=== PATIENT | female | born 1970 | race Caucasian/White ===

== ENCOUNTER → 2016-04-03 | Outpatient (CLI) | payer MEDICARE ==
[2016-04-03 12:24] LABS: ABSOLUTE BASOPHILS # (AUTO) 0.1 10^3/uL (0.0-0.2); ABSOLUTE EOSINOPHILS # (AUTO) 0.3 10^3/uL (0.0-0.6); ABSOLUTE LYMPHOCYTES (AUTO) 3.6 10^3/uL (0.5-4.7); ABSOLUTE MONOCYTES (AUTO) 0.9 10^3/uL (0.1-1.4); ABSOLUTE NEUT (AUTO) 8.7 10^3/uL (1.7-8.2); BASOPHILS % (AUTO) 0.5 % (0-2); EOSINOPHILS % (AUTO) 2.4 % (0-6); HEMATOCRIT 40.1 % (36.0-47.0); HGB HCT DIFFERENCE -1.1; LYMPHOCYTES % (AUTO) 26.5 % (13-45); MEAN CORPUSCULAR HGB CONC 32.3 g/dL (32.0-36.0); MEAN CORPUSCULAR VOLUME 74 fl (80-97); MONOCYTES % (AUTO) 6.8 % (3-13); RED CELL DISTRIBUTION WIDTH 17.2 % (11.5-14.0); SEGMENTED NEUTROPHILS % (AUTO) 63.8 % (42-78); WHITE BLOOD COUNT 13.7 10^3/uL (4.0-10.5)
[2016-04-03 13:07] LABS: ALANINE AMINOTRANSFERASE 33 U/L (9-52); ALBUMIN 3.7 g/dL (3.5-5.0); ALKALINE PHOSPHATASE 122 U/L (38-126); ANION GAP 14 (5-19); ASPARTATE AMINO TRANSFERASE 17 U/L (14-36); BILIRUBIN,TOTAL 0.2 mg/dL (0.2-1.3); BLOOD UREA NITROGEN 13 mg/dL (7-20); CALCIUM 9.4 mg/dL (8.4-10.2); CARBON DIOXIDE 25 mmol/L (22-30); CHLORIDE 99 mmol/L (98-107); CREATININE RESULT 0.62 mg/dL (0.52-1.25); GLUCOSE 152 mg/dL (75-110); POTASSIUM 4.6 mmol/L (3.6-5.0); SODIUM 137.7 mmol/L (137-145); TOTAL PROTEIN 6.5 g/dL (6.3-8.2)
== END ==
LOC: OD 11:34
PROVIDERS: ATTEND Nurse Practitioner Adult Health
DX: J44.1 Chronic obstructive pulmonary disease with (acute) exacerbation (principal); R05 Cough
CPT/HCPCS: 36415; 71020; 80053; 85025; 87070; 87205

== ENCOUNTER 2016-04-18 22:04 | Emergency (ER) | payer MEDICARE ==
[2016-04-18] MEDS ORDERED: MORPHINE SULFATE 10 MG/ML INJ IV ONE (22:22)
[2016-04-18] MEDS ORDERED: ONDANSETRON HCL INJ/PF 4 MG/2 ML SDV IV ONE (22:22)
--- NOTE | 2016-04-18 22:26 | ER Document Report ---
ED GI/ - General Stated Complaint: DIFFICULTY BREATHING Time seen by provider: 22:23 Mode of Arrival: Ambulatory Information source: Patient TRAVEL OUTSIDE OF THE [place] IN LAST 30 DAYS: No - HPI Patient complains to provider of: Abdominal pain, Vomiting Onset: Other - 2-3 days Timing/Duration: Gradual, Persistent Quality of pain: Achy, Cramping, Fullness, Pressure Severity at maximum: Moderate Severity in ED: Moderate Pain Level: 4 Location: Right flank Associated symptoms: Nausea, Shortness of breath, Sweaty, Vomiting Exacerbated by: Denies Relieved by: Denies Similar symptoms previously: No Recently seen / treated by doctor: Yes Notes: 04/18/16 22:24 Patient is a 46-year-old female with a history of pulmonary fibrosis, osteoporosis, history of herniated disks, who presents to the emergency room complaining of nausea and vomiting with dizziness and body aches, muscle cramps , right flank pain that's been going on for the past 2-3 days, she reports decreased by mouth intake and decreased urination throughout the day today, she does not feel the urge to urinate, she states anytime she stands up she gets diaphoretic, and feels as though she is going to pass out, the room is spinning at the time, patient denies any sick contacts, no recent traveling - Related Data Allergies/Adverse Reactions: piperacillin sodium [From Zosyn] Allergy (Unknown, Verified 04/12/15 14:39) Unknown reaction tazobactam sodium [From Zosyn] Allergy (Unknown, Verified 04/12/15 14:39) Unknown reaction Past Medical History - General Information source: Patient - Social History Smoking Status: Former Smoker - Quit 4 years ago Family History: Arthritis, COPD - Father, Other - Pulmonary hypertension in mother, Father with pulmonary fibrosis - Past Medical History Cardiac Medical History: Reports: Hx Pulmonary Embolism Pulmonary Medical History: Reports: Hx Asthma, Hx Bronchitis, Hx COPD, Hx Respiratory Failure Denies: Hx Pneumonia, Hx Sleep Apnea, Hx Tuberculosis Malignancy Medical History: Denies: Hx Lung Cancer Psychiatric Medical History: Denies: Hx Depression Past Surgical History: Reports: Hx Appendectomy - 1989, Hx Breast Surgery - Tumors removed on L breast, Hx Hysterectomy, Hx Tonsillectomy - 1974. Denies: Hx Pacemaker - Immunizations Hx Diphtheria, Pertussis, Tetanus Vaccination: Yes Review of Systems - Review of Systems Constitutional: Chills, Diaphoresis, Malaise, Weakness EENT: No symptoms reported Cardiovascular: No symptoms reported Respiratory: Short of breath Gastrointestinal: Abdominal pain, Nausea, Vomiting, Poor fluid intake Genitourinary: Other - Decreased urine output Female Genitourinary: No symptoms reported Musculoskeletal: See HPI Skin: No symptoms reported Hematologic/Lymphatic: No symptoms reported Neurological/Psychological: No symptoms reported -: Yes All other systems reviewed and negative Physical Exam - Vital signs Vitals: Temp Pulse Resp BP Pulse Ox 98.9 F 123 H 26 H 132/109 H 98 04/18/16 22:05 04/18/16 22:05 04/18/16 22:05 04/18/16 22:05 04/18/16 22:05 Interpretation: Tachycardic - General General appearance: Alert In distress: Mild - HEENT Head: Normocephalic, Atraumatic Eyes: Normal Pupils: PERRL - Respiratory Respiratory status: No respiratory distress Chest status: Nontender Breath sounds: Normal Chest palpation: Normal - Cardiovascular Rhythm: Regular, Tachycardia Heart sounds: Normal auscultation Murmur: No - Abdominal Inspection: Normal Distension: No distension Bowel sounds: Normal Tenderness: Nontender Organomegaly: No organomegaly - Back Back: CVA tenderness - Right side - Extremities General upper extremity: Normal inspection, Nontender, Normal color, Normal ROM , Normal temperature General lower extremity: Normal inspection, Nontender, Normal color, Normal ROM , Normal temperature, Normal weight bearing. No: Dilma's sign - Neurological Neuro grossly intact: Yes Cognition: Normal Orientation: AAOx4 Rigby Coma Scale Eye Opening: Spontaneous Rigby Coma Scale Verbal: Oriented Rigby Coma Scale Motor: Obeys Commands Rigby Coma Scale Total: 15 Speech: Normal Motor strength normal: LUE, RUE, LLE, RLE Sensory: Normal - Psychological Associated symptoms: Normal affect, Normal mood - Skin Skin Temperature: Warm Skin Moisture: Diaphoretic Skin Color: Normal Course - Re-evaluation Re-evalutation: 04/19/16 01:29 Notified by nursing staff that patient apparently had a fall, states she went to get up out of the bed, felt dizzy and lightheaded and fell backwards onto her buttocks, she has a very mild abrasion to the left anterior lower leg, and some pain in the buttock region, denies head injury or loss of consciousness, requested additional pain and nausea meds 04/19/16 05:36 Patient appears to be doing much better, she still reports not feeling quite well, however lab and imaging findings were discussed with patient at bedside which are relatively unremarkable, she states that she is convinced there is something wrong with her kidneys, I attempted to reassure patient that her CAT scan showed normal kidneys, her kidney function is completely normal and her urinalysis did not show any signs of infection or otherwise concerning kidney issues, she was provided with additional IV fluids, her vital signs improved significantly, she was able to stand up without any further dizziness, and therefore is discharged home with instructions to follow-up with her primary care provider and her pain management physician or return if symptoms worsen, patient acknowledges understanding and agreement with this plan - Vital Signs Vital signs: Temp Pulse Resp BP Pulse Ox 98.2 F 99 27 H 136/88 H 98 04/19/16 05:28 04/19/16 04:00 04/19/16 05:26 04/19/16 05:26 04/19/16 05:26 - Laboratory Result Diagrams: 04/18/16 23:08 04/18/16 23:08 Laboratory results interpreted by me: 04/18/16 04/18/16 04/18/16 23:08 23:08 23:21 WBC 19.0 H RBC 5.47 H MCV 75 L MCH 23.8 L MCHC 31.8 L RDW 17.3 H Absolute Neutrophils 14.5 H Potassium 5.1 H Alkaline Phosphatase 141 H Urine Ketones TRACE H - Diagnostic Test Radiology reviewed: Image reviewed, Reports reviewed - EKG Interpretation by Nm EKG shows normal: Sinus rhythm Rate: Tachycardia Discharge - Discharge Clinical Impression: Flank pain, Dysuria Nausea and vomiting Qualifiers: Vomiting type: unspecified Vomiting Intractability: non-intractable Qualified Code(s): R11.2 - Nausea with vomiting, unspecified Condition: Stable Disposition: HOME, SELF-CARE Instructions: Antinausea Medication ([facility]), Vomiting ([facility]), Reglan ([facility]), Intravenous (IV) Fluids ([facility]), Flank Pain ([facility]) Additional Instructions: Follow up with your primary care provider in one to 2 days. Return to the emergency room immediately if symptoms worsen or any additional concerns. Prescriptions: Metoclopramide HCl [Reglan 10 mg Tablet] 1 - 2 tab PO ASDIR PRN #25 tablet PRN Reason: Referrals: BRETT GILL MD [Primary Care Provider] - Follow up as needed
[2016-04-18] MEDS: NORMAL SALINE 1000 ML 1,000 ML IV PRN (23:16)
[2016-04-18 23:20] LABS: ABSOLUTE BASOPHILS # (AUTO) 0.2 10^3/uL (0.0-0.2); ABSOLUTE EOSINOPHILS # (AUTO) 0.1 10^3/uL (0.0-0.6); ABSOLUTE LYMPHOCYTES (AUTO) 3.1 10^3/uL (0.5-4.7); ABSOLUTE MONOCYTES (AUTO) 1.1 10^3/uL (0.1-1.4); ABSOLUTE NEUT (AUTO) 14.5 10^3/uL (1.7-8.2); BASOPHILS % (AUTO) 1.1 % (0-2); EOSINOPHILS % (AUTO) 0.5 % (0-6); LYMPHOCYTES % (AUTO) 16.4 % (13-45); MEAN CORPUSCULAR HEMOGLOBIN 23.8 pg (27.0-33.4); MEAN CORPUSCULAR HGB CONC 31.8 g/dL (32.0-36.0); MEAN CORPUSCULAR VOLUME 75 fl (80-97); RED BLOOD COUNT 5.47 10^6/uL (3.72-5.28); RED CELL DISTRIBUTION WIDTH 17.3 % (11.5-14.0)
[2016-04-18 23:46] LABS: ALANINE AMINOTRANSFERASE 47 U/L (9-52); ALBUMIN 4.3 g/dL (3.5-5.0); ALKALINE PHOSPHATASE 141 U/L (38-126); ANION GAP 12 (5-19); ASPARTATE AMINO TRANSFERASE 24 U/L (14-36); BILIRUBIN,TOTAL 0.5 mg/dL (0.2-1.3); BLOOD UREA NITROGEN 13 mg/dL (7-20); CALCIUM 9.9 mg/dL (8.4-10.2); CARBON DIOXIDE 28 mmol/L (22-30); CHLORIDE 100 mmol/L (98-107); CREATINE KINASE 75 U/L (30-135); CREATININE RESULT 0.56 mg/dL (0.52-1.25); GLUCOSE 104 mg/dL (75-110); LIPASE 62.9 U/L (23-300); POTASSIUM 5.1 mmol/L (3.6-5.0); SODIUM 140.4 mmol/L (137-145); TOTAL PROTEIN 7.1 g/dL (6.3-8.2)
[2016-04-18 23:55] LABS: CREATINE KINASE MB 2.22 ng/mL (<4.55)
[2016-04-19 00:02] LABS: APPEARANCE,URINE SLIGHTLY-CLOUDY; BILIRUBIN,URINE NEGATIVE (NEGATIVE); GLUCOSE, URINE NEGATIVE (NEGATIVE); KETONES,URINE TRACE mg/dL (NEGATIVE); LEUKOCYTE ESTERASE,URINE NEGATIVE (NEGATIVE); NITRITE,URINE NEGATIVE (NEGATIVE); PROTEIN,URINE NEGATIVE (NEGATIVE); URINE SPECIFIC GRAVITY 1.024; UROBILINOGEN,URINE NEGATIVE mg/dL (<2.0)
[2016-04-19] MEDS ORDERED: MORPHINE SULFATE 10 MG/ML INJ IV ONE ×3 (01:30→04:52)
[2016-04-19] MEDS ORDERED: ONDANSETRON HCL INJ/PF 4 MG/2 ML SDV IV ONE (01:30)
[2016-04-19] MEDS ORDERED: DIPHENHYDRAMINE HCL 50 MG/ML VIAL IV ONE (02:01)
[2016-04-19] MEDS ORDERED: DICYCLOMINE HCL 20 MG TABLET PO ONE (02:41)
[2016-04-19] MEDS ORDERED: NORMAL SALINE 1000 ML 1,000 ML IV PRN (03:45)
[2016-04-19] MEDS ORDERED: METOCLOPRAMIDE HCL INJ/PF 10 MG/2 ML SDV IV ONE (03:55)
[2016-04-19] MEDS: NORMAL SALINE 1000 ML 1,000 ML IV PRN (03:58)
[2016-04-19 05:28] VITALS: BP 136/88
--- NOTE | 2016-04-19 08:11 | EKG REPORT ---
SEVERITY:- BORDERLINE ECG - SINUS TACHYCARDIA NONSPECIFIC ST-T CHANGES : Confirmed by: Amilcar Cotto MD 19-Apr-2016 08:10:33
== END 2016-04-19 05:42 | disposition home or self-care (01) ==
LOC: ER 22:04
DX: R10.9 Unspecified abdominal pain (principal); R30.0 Dysuria; R11.2 Nausea with vomiting, unspecified; R06.02 Shortness of breath; J84.10 Pulmonary fibrosis, unspecified; M81.0 Age-related osteoporosis without current pathological fracture; R42 Dizziness and giddiness; R52 Pain, unspecified; R25.2 Cramp and spasm; Z87.891 Personal history of nicotine dependence
CPT/HCPCS: 93005; 96376; 99285; 96361; 96374; 96375; 36415; 87086; 82553; 82550; 83690; 85025; 80053; 81001; 83880; 76380; 93010; A9270; J1200; J2765; J2270 ×2; J2405 ×2; J7030 ×2; J3490

== ENCOUNTER 2016-09-28 20:20 | Inpatient (IN) | payer MEDICARE ==
[2016-09-28] MEDS ORDERED: IPRATROPIUM/ALBUTEROL 0.5-2.5 MG/3 ML AMPUL NEB ONE ×2 (20:33→20:34)
[2016-09-28] MEDS ORDERED: METHYLPREDNISOLONE INJ 125 MG/2 ML SDV ONE (20:34)
[2016-09-28] MEDS ORDERED: METHYLPREDNISOLONE INJ 125 MG/2 ML SDV IV ONE (20:34)
[2016-09-28] MEDS ORDERED: MAGNESIUM SULFATE/D5W 2 GM/200 ML RTUPB IV ONE (20:34)
[2016-09-28] MEDS ORDERED: MAGNESIUM SULFATE/D5W 100 ML IV PRN (20:34)
[2016-09-28] MEDS ORDERED: NORMAL SALINE 1000 ML 1,000 ML IV ONE (20:34)
[2016-09-28] MEDS ORDERED: CEFEPIME 2 GM/D5W RTU 50 ML IV ONE (20:41)
--- NOTE | 2016-09-28 20:57 | ER Document Report ---
ED Respiratory Problem - General Chief Complaint: Shortness Of Breath Stated Complaint: TROUBLE BREATHING Time Seen by Provider: 09/28/16 20:30 Notes: Patient is a 46-year-old female who comes emergency department for chief complaint of respiratory distress, patient had to be helped from her vehicle into a wheelchair to get into the room, patient states that she has had progressively worsening shortness of breath and productive cough for the past week, she started taking Levaquin and prednisone at home hoping this would be enough, today she significantly worsened prompting her to come to the emergency department. Past medical history of pulmonary fibrosis with history of pneumonias, she has been intubated once in the past, she sees pulmonology. She states she ran a fever >102 last night. She denies other medical history including Cardiac medical history, smoking, diabetes. TRAVEL OUTSIDE OF THE [place] IN LAST 30 DAYS: No - Related Data Allergies/Adverse Reactions: piperacillin sodium [From Zosyn] Allergy (Unknown, Verified 09/29/16 01:52) Unknown reaction tazobactam sodium [From Zosyn] Allergy (Unknown, Verified 04/12/15 14:39) Unknown reaction Home Medications: Current Home Medications Hydroxyzine HCl [Hydroxyzine HCl] 25 mg PO BID 09/28/16 [History] Promethazine HCl [Promethazine HCl] 25 mg PO Q4HP PRN 09/28/16 [History] Duloxetine HCl 1 cap PO DAILY 09/29/16 [History] Fentanyl [Fentanyl] 15 mcg TOP Q72H 09/29/16 [History] Fentanyl [Fentanyl] 25 mcg TOP Q72H 09/29/16 [History] Past Medical History - General Information source: Patient - Social History Smoking Status: Never Smoker Frequency of alcohol use: None Lives with: Family Family History: Arthritis, COPD - Father, Other - Pulmonary hypertension in mother, Father with pulmonary fibrosis - Past Medical History Cardiac Medical History: Reports: Hx Pulmonary Embolism Pulmonary Medical History: Reports: Hx Asthma, Hx Bronchitis, Hx COPD, Hx Respiratory Failure Denies: Hx Pneumonia, Hx Sleep Apnea, Hx Tuberculosis Malignancy Medical History: Denies: Hx Lung Cancer Psychiatric Medical History: Denies: Hx Depression Past Surgical History: Reports: Hx Appendectomy - 1989, Hx Breast Surgery - Tumors removed on L breast, Hx Hysterectomy, Hx Tonsillectomy - 1974. Denies: Hx Pacemaker - Immunizations Hx Diphtheria, Pertussis, Tetanus Vaccination: Yes Physical Exam - Vital signs Vitals: Resp Pulse Ox 32 H 93 09/28/16 20:28 09/28/16 20:28 Course - Re-evaluation Re-evalutation: Patient found to be in respiratory distress on my initial evaluation, she was immediately placed on BiPAP, given DuoNeb's, Solu-Medrol, magnesium, starting IV fluids, starting cefepime because patient started herself on PO Levaquin and she had a productive cough at bedside. Patient cannot say 2 words without her oxygen dropping into the upper 80s even while sitting. I placed IV access using ultrasound-guided IV. Oxygen improved from 90-91 up to about 97% on BiPAP, respiratory rate slowed, patient still tachycardic. Will continue to monitor closely. Workup pending. Patient continued to improve. Tachycardia slowly downtrending, still maintaining good oxygen level, patient much more relaxed with much more even breathing on reevaluation. Patient discussed with Dr. Byrnes. Leukocytosis at 19,000 with elevation of neutrophils, no bandemia. VBG is not showing any acidosis or CO2 retention. Chest x-ray showing bilateral pneumonia. Chemistry nonspecific with elevated liver enzymes, nontender abdomen on exam. CK is elevated, urine still pending, patient given IV fluids. Discussed with Dr. Torres, Internal Medicine, patient will be admitted to [facility]. - Vital Signs Vital signs: Temp Pulse Resp BP Pulse Ox 97.9 F 97 30 H 140/79 H 96 09/29/16 03:44 09/29/16 03:44 09/29/16 04:00 09/29/16 03:44 09/29/16 04:00 - Laboratory Result Diagrams: 09/28/16 20:49 09/28/16 22:05 Laboratory results interpreted by me: 09/28/16 09/28/16 09/28/16 20:49 22:05 22:05 WBC 19.3 H Hgb 10.7 L Hct 34.2 L MCV 73 L MCH 22.7 L MCHC 31.4 L RDW 18.5 H Absolute Neutrophils 15.0 H Sodium 132.6 L BUN 6 L Creatinine 0.50 L Glucose 200 H Calcium 8.2 L Magnesium AST 86 H ALT 177 H Alkaline Phosphatase 179 H Creatine Kinase 1422 H CK-MB (CK-2) 5.10 H Albumin 3.4 L 09/28/16 22:05 WBC Hgb Hct MCV MCH MCHC RDW Absolute Neutrophils Sodium BUN Creatinine Glucose Calcium Magnesium 2.4 H AST ALT Alkaline Phosphatase Creatine Kinase CK-MB (CK-2) Albumin Critical Care Note - Critical Care Note Total time excluding time spent on procedures (mins): 35 - respiratory distress , hypoxia, pneumonia Comments: Please allow 35 minutes of critical care time for evaluation and treatment of patient with respiratory distress, pneumonia, hypoxia. Treatment with BiPAP, DuoNeb's, Solu-Medrol, magnesium, antibiotics, IV fluids. Multiple re- evaluations. Consultation and admission to the hospital. Discharge - Discharge Clinical Impression: BOOP (bronchiolitis obliterans with organizing pneumonia), Respiratory distress Pneumonia Qualifiers: Pneumonia type: due to unspecified organism Laterality: bilateral Lung location : unspecified part of lung Qualified Code(s): J18.9 - Pneumonia, unspecified organism Condition: Stable Disposition: ADMITTED INPATIENT Admitting Provider: Hospitalist Unit Admitted: [facility]
[2016-09-28] MEDS ORDERED: ONDANSETRON HCL INJ/PF 4 MG/2 ML SDV IV ONE (21:02)
[2016-09-28 21:15] LABS: ABSOLUTE BASOPHILS # (AUTO) 0.2 10^3/uL (0.0-0.2); ABSOLUTE EOSINOPHILS # (AUTO) 0.1 10^3/uL (0.0-0.6); ABSOLUTE LYMPHOCYTES (AUTO) 2.8 10^3/uL (0.5-4.7); ABSOLUTE MONOCYTES (AUTO) 1.3 10^3/uL (0.1-1.4); EOSINOPHILS % (AUTO) 0.6 % (0-6); HEMATOCRIT 34.2 % (36.0-47.0); HEMOGLOBIN 10.7 g/dL (12.0-15.5); HGB HCT DIFFERENCE -2.1; LYMPHOCYTES % (AUTO) 14.4 % (13-45); MEAN CORPUSCULAR HEMOGLOBIN 22.7 pg (27.0-33.4); MEAN CORPUSCULAR HGB CONC 31.4 g/dL (32.0-36.0); MEAN CORPUSCULAR VOLUME 73 fl (80-97); MONOCYTES % (AUTO) 6.5 % (3-13); RED BLOOD COUNT 4.71 10^6/uL (3.72-5.28); RED CELL DISTRIBUTION WIDTH 18.5 % (11.5-14.0); SEGMENTED NEUTROPHILS % (AUTO) 77.5 % (42-78); WHITE BLOOD COUNT 19.3 10^3/uL (4.0-10.5)
[2016-09-28 21:18] LABS: VENOUS BLOOD PCO2 45.3 mmHg (35-63); VENOUS BLOOD PH 7.41 (7.30-7.42)
--- NOTE | 2016-09-28 21:49 | RADIOLOGY REPORT (SQ) ---
EXAM DESCRIPTION: CHEST SINGLE VIEW COMPLETED DATE/TIME: 09/28/2016 9:38 pm REASON FOR STUDY: difficulty breathing, productive cough COMPARISON: 04/03/2016 EXAM PARAMETERS: NUMBER OF VIEWS: One view. TECHNIQUE: Single frontal radiographic view of the chest acquired. RADIATION DOSE: NA LIMITATIONS: None. FINDINGS: LUNGS AND PLEURA: Diffuse left-sided parenchymal opacities. Right perihilar parenchymal o pacity. No pneumothorax. MEDIASTINUM AND HILAR STRUCTURES: No masses. Contour normal. HEART AND VASCULAR STRUCTURES: Heart normal in size. Normal vasculature. BONES: No acute findings. HARDWARE: None in the chest. OTHER: No other significant finding. IMPRESSION: Bilateral pneumonia. TECHNICAL DOCUMENTATION: JOB ID: [id number]
[2016-09-28 22:35] LABS: ALANINE AMINOTRANSFERASE 177 U/L (9-52); ALBUMIN 3.4 g/dL (3.5-5.0); ALKALINE PHOSPHATASE 179 U/L (38-126); ANION GAP 12 (5-19); ASPARTATE AMINO TRANSFERASE 86 U/L (14-36); BILIRUBIN,DIRECT 0.4 mg/dL (0.0-0.4); BILIRUBIN,TOTAL 0.5 mg/dL (0.2-1.3); BLOOD UREA NITROGEN 6 mg/dL (7-20); CALCIUM 8.2 mg/dL (8.4-10.2); CARBON DIOXIDE 23 mmol/L (22-30); CHLORIDE 98 mmol/L (98-107); CREATINE KINASE 1422 U/L (30-135); GLUCOSE 200 mg/dL (75-110); SODIUM 132.6 mmol/L (137-145); TOTAL PROTEIN 6.3 g/dL (6.3-8.2)
[2016-09-28 22:45] LABS: TROPONIN I < 0.012 ng/mL
[2016-09-28] MEDS ORDERED: MORPHINE SULFATE 10 MG/ML INJ IV ONE (22:56)
[2016-09-29] MEDS ORDERED: NORMAL SALINE 1000 ML 1,000 ML IV PRN (01:50)
[2016-09-29] MEDS ORDERED: ALBUTEROL SULFATE 0.083% NEB 2.5 MG/3 ML AMPUL NEB PRN (01:56)
[2016-09-29] MEDS ORDERED: GUAIFENESIN SYRP 200 MG/10 ML UDC PO PRN (01:56)
[2016-09-29 01:58] LABS: ADD ON TESTING BLD IN LAB ACKNOWLEDGE
[2016-09-29] MEDS ORDERED: VANCOMYCIN HCL 0 MG in DEXTROSE 5%-WATER 250 ML IV NR (02:00)
[2016-09-29] MEDS ORDERED: DEXTROSE 40% GEL 15 GM TUBE PO PRN ×2 (02:02)
[2016-09-29] MEDS ORDERED: ACETAMINOPHEN 325 MG TABLET PO PRN (02:02)
[2016-09-29] MEDS ORDERED: DEXTROSE 50%-WATER 25 GM/50 ML DISP.SYRIN IV PRN ×2 (02:02)
[2016-09-29] MEDS ORDERED: GLUCAGON,HUMAN RECOMB 1 MG INJ IM PRN (02:02)
[2016-09-29] MEDS ORDERED: INSULIN LISPRO 100 UNIT/ML 3 ML VIAL SUBCUT PRN (02:02)
[2016-09-29 02:10] LABS: MAGNESIUM 2.4 mg/dL (1.6-2.3)
--- NOTE | 2016-09-29 02:14 | PDOC H&P ---
History of Present Illness Admission Date/PCP: 09/28/16 23:35 [facility] Curseen Patient complains of: Difficulty breathing History of Present Illness: CHUCKIE OSPINA is a 46 year old obese female, with underlying pulmonary fibrosis, and history of BOOP who presents to the emergency room for evaluation of a one-week history of progressive difficulty breathing, with associated productive cough and fever greater than 102 over the previous 24 hours. Respiratory difficulty has particularly worsened over the last 24 hours. Positive nausea but no vomiting. No diarrhea or dysuria. Symptoms worse despite her taking Levaquin and prednisone at home. Intubated 2; last episode approximately 2 years ago. Significant respiratory distress upon presentation to the emergency room, but with treatment, including antibiotics, magnesium ,and BiPAP, she is much improved, confirmed by nursing staff and patient. Patient has been discussed with emergency room nurse practitioner who evaluated the patient. . Laboratory results are listed in [place] and are reviewed. X-ray summary results are listed below, with full report(s) reviewed. . EKG reviewed. Social history/personal habits: . Has children. On disability. No use of alcohol tobacco or illicit drugs. Allergies/adverse reactions are listed in [place] and are reviewed. No problems with Rocephin or cefepime. Home medications initially autopopulated into [facility]) may not accurately reflect patient's true medications, dosages, and/or frequencies. operator technician to reconcile medications. Unfortunately, patient not certain of all medications/dosages/frequencies. REVIEW OF SYSTEMS: Constitutional: See history and present illness. Eyes: Wears glasses ENT: No swallowing problems or complaints. Denies hearing loss. Pulmonary: See history and present illness. Cardiovascular: No current complaints, including chest pain. Gastrointestinal: See history and present illness. Skin: No current complaints, including rashes. Hematologic: Denies easy bruising. Neurologic: No current complaints, including numbness or tingling. Musculoskeletal: No current or chronic joint complaints, such as arthritis. Psychiatric: Denies anxiety or depression. Endocrine: No current complaints, including polyuria. Genitourinary: No current complaints, including dysuria. PHYSICAL EXAMINATION: Neither height nor weight are recorded on the chart. Blood pressure 130/87. Pulse 96 and regular. Respirations are 15 and unlabored. 98% saturation on 50 % FiO2, BiPAP 12/6. Temperature 99.0. Obese otherwise well-developed female appearing a bit younger than her stated age. Initially asleep, but awakens relatively easily. Fatigued appearance. Maintaining airway well. Female emergency room nurse Kimber is present. Skin is warm and dry. No grossly obvious evidence of rash in areas of skin examined. No subcutaneous nodules palpated. ENT: Hearing grossly normal to normal conversation. Tongue midline on protrusion pink and slightly tacky. Exam slightly limited by BiPAP mask with attaching straps. Eyes: No scleral icterus. Pupils equal and reactive to light at 4 mm. [place] conjunctivae. Neck is supple and nontender to gentle active range of motion and palpation. Midline trachea. No palpable thyroid nodule mass enlargement or tenderness. Lymphatic: No palpable cervical or clavicular nodes. Neck and lymphatic exams limited by patient body habitus. Exam slightly limited by BiPAP mask with attaching straps. Psychiatric: Reasonable insight into acute and chronic medical issues. Oriented to time location and why here. Lungs: Auscultation reveals equal breath sounds bilaterally. No use of accessory respiratory muscles. Faintly coarse breath sounds bilaterally, perhaps a bit more prominent in the bases. Cardiovascular: Heart regular rate and rhythm, without gallop murmur or rub. No abdominal aortic bruits. No ankle or pedal edema. Palpable dorsalis pedis pulses. Difficult to evaluate for carotid bruit due to airway sounds from BiPAP device. Abdomen:soft obese nontender with positive bowel sounds. Unable to adequately evaluate abdomen for masses or organomegaly due to body habitus. Extremities: Feet are warm and dry. No calf tenderness to compression. No grossly obvious visual evidence of calf swelling. Gentle manipulation of lower extremities fails to reveal any obvious evidence of injury or instability to knees hips or ankles. Neurologic: Moves upper extremities grossly normally. Patellar reflexes absent. Absent Babinski. Light touch is intact at feet. Dorsiflexion and plantarflexion of feet 5 / 5 and symmetric. Past Medical History Cardiac Medical History: Reports: Pulmonary Embolism - Several years ago; blood thinner 6 months, stop by physician. Pulmonary Medical History: Reports: Asthma, Bronchitis, Chronic Obstructive Pulmonary Disease (COPD), Respiratory Failure, Other - Pulmonary fibrosis with history of BOOP Denies: Pneumonia, Sleep Apnea, Tuberculosis Neurological Medical History: Denies: Hemorrhagic CVA, Ischemic CVA, Seizures Endocrine Medical History: Denies: Diabetes Mellitus Type 1, Diabetes Mellitus Type 2, Hyperthyroidism, Hypothyroidism Malignancy Medical History: Denies: Lung Cancer GI Medical History: Denies: Cirrhosis, Gastroesophageal Reflux Disease, Hepatitis, Peptic Ulcer Disease Musculoskeltal Medical History: Denies: Arthritis Skin Medical History: Reports: None Psychiatric Medical History: Denies: Alcohol Dependency, Depression, General Anxiety Disorder, Substance Abuse, Tobacco Dependency Hematology: Reports: None Infectious Medical History: Denies: Clostridium Difficile, Hepatitis B, Hepatitis C, Methicillin- Resistant Staph Aureus Past Surgical History Past Surgical History: Reports: Appendectomy - 1989, Hysterectomy, Tonsillectomy - 1974 Denies: Pacemaker Social History Information Source: Patient, Emergency Med Personnel, [facility] Records Smoking Status: Unknown if Ever Smoked Frequency of Alcohol Use: None Hx Recreational Drug Use: No Drugs: None Hx Prescription Drug Abuse: No - pt does take narcotics at home for pain - Advance Directive Resuscitation Status: Full Code Surrogate healthcare decision maker:: Her daughter Jolene Adame Family History Family History: Arthritis, COPD - Father, Other - Pulmonary hypertension in mother, Father with pulmonary fibrosis Parental Family History Reviewed: Yes - Father of pulmonary fibrosis. Uncertain health of mother, alive Children Family History Reviewed: Yes - Healthy Sibling(s) Family History Reviewed.: Yes - Healthy Medication/Allergy Home Medications: Oxycodone HCl [Oxycodone HCl 10 MG Tablet] 15 mg PO Q8HP PRN 04/12/15 Oxycodone HCl [Oxycontin] 30 mg PO BID 01/02/16 Cyclobenzaprine HCl [Flexeril 10 mg Tablet] 10 mg PO TIDP PRN 01/17/16 Hydroxyzine HCl [Hydroxyzine HCl] 25 mg PO Q12 PRN 09/28/16 Promethazine HCl [Promethazine HCl] 25 mg PO Q6HP PRN 09/28/16 Duloxetine HCl 60 mg PO DAILY 09/29/16 Ipratropium/Albuterol Sulfate [Iprat-Albut 0.5-3(2.5) mg/3 ml] 1 inh IH Q6HP PRN 09/29/16 Montelukast Sodium [Singulair 10 mg Tablet] 10 mg PO QHS 09/29/16 Omeprazole 40 mg PO DAILY 09/29/16 Prednisone [Deltasone 20 mg Tablet] 20 mg PO DAILY 09/29/16 Tiotropium Br/Olodaterol HCl [Stiolto Respimat Inhal [place]] 1 puff IH DAILY 04/17 Allergies/Adverse Reactions: piperacillin sodium [From Zosyn] Allergy (Unknown, Verified 09/29/16 01:52) Unknown reaction tazobactam sodium [From Zosyn] Allergy (Unknown, Verified 04/12/15 14:39) Unknown reaction Physical Exam Vital Signs: Temp Pulse Resp BP Pulse Ox 99.0 F 17 130/87 H 97 09/28/16 20:49 09/29/16 01:16 09/29/16 01:15 09/29/16 01:16 Results Impressions: Chest X-Ray 09/28/16 20:33 IMPRESSION: Bilateral pneumonia. Assessment & Plan - Diagnosis (1) Acute and chronic respiratory failure with hypercapnia Is this a current diagnosis for this admission?: YesPlan: Patient will be admitted under COPD exacerbation and pneumonia protocol. Incentive spirometry twice a day. Scheduled DuoNeb's. As needed albuterol nebs. Prednisone. Prevacid for gastritis prophylaxis. Pulmonology consult. Antibiotics will consist of cefepime along with intravenous vancomycin and Levaquin. Pharmacy to assist with vancomycin dosing. I strongly encouraged patient to notify staff should patient feel that breathing is worsening. Patient is a full code. I have strongly encouraged patient not to get out of bed without notifying staff , to avoid a fall with injury. Knee high SCDs for DVT prophylaxis, along with subcutaneous Lovenox. Impression and plans were discussed with patient who concurs. Time spent in evaluation and management of patient: 67 critical-care minutes. (2) Anemia Qualifiers: Anemia type: unspecified type Qualified Code(s): D64.9 - Anemia, unspecified Is this a current diagnosis for this admission?: YesPlan: Follow-up CBC with differential. No need for transfusion at present time. (3) BOOP (bronchiolitis obliterans with organizing pneumonia) Is this a current diagnosis for this admission?: Yes (4) Elevated LFTs Is this a current diagnosis for this admission?: YesPlan: Uncertain etiology. Patient denies underlying biliary disease. Follow-up chemistry. - Inpatient Certification Based on my medical assessment, after consideration of the patient's comorbidities, presenting symptoms, or acuity I expect that the services needed warrant INPATIENT care.: Yes I certify that my determination is in accordance with my understanding of Medicare's requirements for reasonable and necessary INPATIENT services [42 CFR 412.3e].: Yes Medical Necessity: Failure to Improve With Outpatient Therapy, Need Close Monitoring Due to Risk of Patient Decompensation, Need For IV Fluids, Need For Continuous Telemetry Monitoring, Need for Nebulizer Therapy and Monitoring of Response, Need for IV Antibiotics, Risk of Diagnosis Which Will Require Inpatient Eval/Care/Monitoring Post Hospital Care: D/C or Transfer Summary
[2016-09-29] MEDS ORDERED: VANCOMYCIN HCL INJ 1000 MG VIAL IV PRN (02:22)
[2016-09-29] MEDS ORDERED: VANCOMYCIN HCL 2,000 MG in DEXTROSE 5%-WATER 500 ML IV ONE (03:00)
[2016-09-29 03:04] LABS: VENOUS BLOOD BASE EXCESS 2.3 mmol/L; VENOUS BLOOD HCO3 28.3 mmol/L (20-32); VENOUS BLOOD PCO2 49.9 mmHg (35-63); VENOUS BLOOD PH 7.37 (7.30-7.42)
[2016-09-29] MEDS ORDERED: VANCOMYCIN HCL INJ 1000 MG VIAL ONE (03:51)
[2016-09-29 04:16] LABS: APPEARANCE,URINE CLEAR; BILIRUBIN,URINE NEGATIVE (NEGATIVE); GLUCOSE, URINE 50 mg/dL (NEGATIVE); KETONES,URINE NEGATIVE (NEGATIVE); LEUKOCYTE ESTERASE,URINE NEGATIVE (NEGATIVE); NITRITE,URINE NEGATIVE (NEGATIVE); PROTEIN,URINE NEGATIVE (NEGATIVE); URINE SPECIFIC GRAVITY 1.009; UROBILINOGEN,URINE NEGATIVE mg/dL (<2.0)
[2016-09-29] MEDS: LANSOPRAZOLE 30 MG TAB.RAP.DR PO SCH ×2 (05:30→16:19)
[2016-09-29] MEDS ORDERED: PREDNISONE 20 MG TABLET PO SCH (06:00)
[2016-09-29 06:52] LABS: VENOUS BLOOD BASE EXCESS 1.4 mmol/L; VENOUS BLOOD HCO3 27.2 mmol/L (20-32); VENOUS BLOOD PCO2 47.4 mmHg (35-63); VENOUS BLOOD PH 7.38 (7.30-7.42)
[2016-09-29 06:54] LABS: ABSOLUTE MONOCYTES (AUTO) 0.4 10^3/uL (0.1-1.4); ABSOLUTE NEUT (AUTO) 13.9 10^3/uL (1.7-8.2); BASOPHILS % (AUTO) 0.3 % (0-2); HEMATOCRIT 31.3 % (36.0-47.0); HEMOGLOBIN 9.8 g/dL (12.0-15.5); HGB HCT DIFFERENCE -1.9; LYMPHOCYTES % (AUTO) 6.6 % (13-45); MEAN CORPUSCULAR HEMOGLOBIN 22.6 pg (27.0-33.4); MEAN CORPUSCULAR HGB CONC 31.3 g/dL (32.0-36.0); MEAN CORPUSCULAR VOLUME 72 fl (80-97); MONOCYTES % (AUTO) 2.3 % (3-13); RED BLOOD COUNT 4.34 10^6/uL (3.72-5.28); SEGMENTED NEUTROPHILS % (AUTO) 90.8 % (42-78); WHITE BLOOD COUNT 15.3 10^3/uL (4.0-10.5)
[2016-09-29 07:12] LABS: ALANINE AMINOTRANSFERASE 191 U/L (9-52); ALBUMIN 3.2 g/dL (3.5-5.0); ALKALINE PHOSPHATASE 165 U/L (38-126); ANION GAP 8 (5-19); ASPARTATE AMINO TRANSFERASE 111 U/L (14-36); BILIRUBIN,DIRECT 0.4 mg/dL (0.0-0.4); BILIRUBIN,TOTAL 0.5 mg/dL (0.2-1.3); BLOOD UREA NITROGEN 6 mg/dL (7-20); CALCIUM 8.2 mg/dL (8.4-10.2); CARBON DIOXIDE 25 mmol/L (22-30); CHLORIDE 100 mmol/L (98-107); CREATININE RESULT 0.41 mg/dL (0.52-1.25); GLUCOSE 260 mg/dL (75-110); POTASSIUM 4.3 mmol/L (3.6-5.0); SODIUM 133.2 mmol/L (137-145)
[2016-09-29] MEDS: IPRATROPIUM/ALBUTEROL 0.5-2.5 MG/3 ML AMPUL NEB SCH ×3 (08:07→20:38)
[2016-09-29] MEDS ORDERED: OXYCODONE HCL IR 5 MG TABLET PO PRN (09:23)
--- NOTE | 2016-09-29 09:28 | PDOC PROGRESS REPORT ---
Subjective Progress Note for:: 09/29/16 Subjective:: Patient states that her breathing is stable. She is just tired from being up all night in the emergency department. She denies chest pain, nausea, vomiting , abdominal pain. Physical Exam Vital Signs: Temp Pulse Resp BP Pulse Ox 97.5 F 77 16 113/69 94 09/29/16 07:21 09/29/16 07:21 09/29/16 07:21 09/29/16 07:21 09/29/16 07:21 Intake & Output 09/28/16 09/29/16 09/30/16 06:59 06:59 06:59 Intake Total 321 Output Total 1000 Balance -679 Weight 111.5 kg GENERAL: No acute distress HEENT: Conjunctiva clear, nonicteric, moist mucous membranes, no JVD, midline trachea RESPIRATORY: Clear to auscultation bilaterally, no wheezes, no rhonchi CARDIAC: Regular rate and rhythm, no murmurs/gallops/rubs ABDOMEN: Soft, nondistended, nontender, positive bowel sounds, no rebound, no guarding EXTREMETIES: 1+ edema bilateral lower extremities NEUROLOGIC: Alert, oriented to person/place/time, CN's grossly intact, no focal deficits SKIN: No rash, wounds PSYCH: Normal mood, normal affect Results Laboratory Results: 09/29/16 06:34 09/29/16 06:34 09/29/16 09/29/16 09/29/16 02:35 03:30 06:34 WBC 15.3 H RBC 4.34 Hgb 9.8 L Hct 31.3 L MCV 72 L MCH 22.6 L MCHC 31.3 L RDW 19.0 H Plt Count 328 Seg Neutrophils % 90.8 H Lymphocytes % 6.6 L Monocytes % 2.3 L Eosinophils % 0.0 Basophils % 0.3 Absolute Neutrophils 13.9 H Absolute Lymphocytes 1.0 Absolute Monocytes 0.4 Absolute Eosinophils 0.0 Absolute Basophils 0.0 VBG pH 7.37 VBG pCO2 49.9 VBG HCO3 28.3 VBG Base Excess 2.3 Sodium Potassium Chloride Carbon Dioxide Anion Gap BUN Creatinine Est GFR ( Amer) Est GFR (Non-Af Amer) Glucose Calcium Total Bilirubin AST ALT Alkaline Phosphatase Total Protein Albumin Urine Color YELLOW Urine Appearance CLEAR Urine pH 6.0 Ur Specific [place] 1.009 Urine Protein NEGATIVE Urine Glucose (UA) 50 H Urine Ketones NEGATIVE Urine Blood NEGATIVE Urine Nitrite NEGATIVE Ur Leukocyte Esterase NEGATIVE Urine WBC (Auto) 0 Urine RBC (Auto) 1 09/29/16 09/29/16 06:34 06:34 WBC RBC Hgb Hct MCV MCH MCHC RDW Plt Count Seg Neutrophils % Lymphocytes % Monocytes % Eosinophils % Basophils % Absolute Neutrophils Absolute Lymphocytes Absolute Monocytes Absolute Eosinophils Absolute Basophils VBG pH 7.38 VBG pCO2 47.4 VBG HCO3 27.2 VBG Base Excess 1.4 Sodium 133.2 L Potassium 4.3 Chloride 100 Carbon Dioxide 25 Anion Gap 8 BUN 6 L Creatinine 0.41 L Est GFR ( Amer) > 60 Est GFR (Non-Af Amer) > 60 Glucose 260 H Calcium 8.2 L Total Bilirubin 0.5 AST 111 H ALT 191 H Alkaline Phosphatase 165 H Total Protein 6.0 L Albumin 3.2 L Urine Color Urine Appearance Urine pH Ur Specific [place] Urine Protein Urine Glucose (UA) Urine Ketones Urine Blood Urine Nitrite Ur Leukocyte Esterase Urine WBC (Auto) Urine RBC (Auto) Impressions: Chest X-Ray 09/28/16 20:33 IMPRESSION: Bilateral pneumonia. Assessment & Plan - Diagnosis (1) Acute and chronic respiratory failure with hypercapnia Is this a current diagnosis for this admission?: YesPlan: Discontinue BiPAP as patient is now stable. Start nasal cannula oxygen. Dr. Luis of pulmonary medicine has been consulted. (2) Pneumonia Qualifiers: Pneumonia type: due to unspecified organism Laterality: bilateral Lung location: unspecified part of lung Qualified Code(s): J18.9 - Pneumonia , unspecified organism Is this a current diagnosis for this admission?: YesPlan: Likely bacterial. Continue IV cefepime, Levaquin, vancomycin pending further culture. (3) BOOP (bronchiolitis obliterans with organizing pneumonia) Is this a current diagnosis for this admission?: YesPlan: Continue prednisone 60 mg daily for now. (4) Edema Is this a current diagnosis for this admission?: YesPlan: Hold off on diuretic therapy for now as I am administering IV fluids for rhabdomyolysis. Patient does not have pulmonary edema on chest x-ray. Check proBNP and echocardiogram. (5) Chronic pain Is this a current diagnosis for this admission?: YesPlan: Chronic opiate dependence. As needed oxycodone for now. Resume routine pain regimen once patient's respiratory status is more stable. (6) Anemia Qualifiers: Anemia type: unspecified type Qualified Code(s): D64.9 - Anemia, unspecified Is this a current diagnosis for this admission?: Yes (7) Elevated LFTs Is this a current diagnosis for this admission?: YesPlan: Status post cholecystectomy. Etiology unclear. Patient's chronic medications would not typically be implicated in this. Check viral hepatitis panel. Given peripheral edema right heart failure could be contributing so we will check proBNP level and echocardiogram. (8) Rhabdomyolysis Qualifiers: Rhabdomyolysis type: non-traumatic Qualified Code(s): M62.82 - Rhabdomyolysis Is this a current diagnosis for this admission?: YesPlan: Continue IV fluids. Repeat cardiac enzymes every 6 hours 3. Then repeat CPK level again in a.m. - Time Time Spent with patient: 35 or more minutes
[2016-09-29] MEDS ORDERED: DULOXETINE HCL PO SCH (10:00)
[2016-09-29 10:14] LABS: CREATINE KINASE MB 4.43 ng/mL (<4.55)
[2016-09-29] MEDS: LEVOFLOXACIN 750 MG/D5W RTU 150 ML IV SCH (10:14)
[2016-09-29] MEDS: CEFEPIME 2 GM/D5W RTU 50 ML IV SCH ×2 (10:14→21:51)
[2016-09-29] MEDS: ENOXAPARIN SODIUM INJ 40 MG/0.4 ML DISP.SYRIN SUBCUT SCH (10:15)
[2016-09-29 10:16] LABS: TROPONIN I < 0.012 ng/mL
[2016-09-29 10:21] LABS: FREE T3 2.87 pg/mL (2.77-5.27)
[2016-09-29 10:35] LABS: THYROID STIMULATING HORMONE 0.4 uIU/mL (0.47-4.68)
[2016-09-29] MEDS: PROMETHAZINE HCL 25 MG TABLET PO PRN (12:41)
[2016-09-29] MEDS ORDERED: DULOXETINE HCL 30 MG CAPSULE.DR PO ONE (13:00)
--- NOTE | 2016-09-29 13:47 | EKG REPORT ---
SEVERITY:- OTHERWISE NORMAL ECG - SINUS TACHYCARDIA : Confirmed by: Octavio Matson 29-Sep-2016 13:47:13
[2016-09-29] MEDS ORDERED: NITROGLYCERIN 0.4 MG/TAB 25 TAB/BOTTLE ONE (14:07)
[2016-09-29] MEDS ORDERED: FUROSEMIDE INJ/PF 100 MG/10 ML SDV ONE (14:24)
--- NOTE | 2016-09-29 14:42 | RADIOLOGY REPORT (SQ) ---
EXAM DESCRIPTION: CHEST SINGLE VIEW COMPLETED DATE/TIME: 09/29/2016 2:28 pm REASON FOR STUDY: chest pain COMPARISON: 09/28/2016. FINDINGS: Single view AP portable upright timed approximately 1413 hours. Patchy airspace opacities persist, particularly on the left. Stable cardiomediastinal silhouette. IMPRESSION: Stable exam. TECHNICAL DOCUMENTATION: JOB ID: [id number]
[2016-09-29] MEDS: VANCOMYCIN HCL 1,500 MG in DEXTROSE 5%-WATER 250 ML IV SCH ×2 (14:50→22:56)
[2016-09-29 15:02] LABS: CREATINE KINASE MB 3.71 ng/mL (<4.55)
[2016-09-29 15:03] LABS: TROPONIN I < 0.012 ng/mL
[2016-09-29] MEDS ORDERED: FUROSEMIDE INJ/PF 20 MG/2 ML SDV IV ONE (15:30)
[2016-09-29] MEDS ORDERED: NITROGLYCERIN 0.4 MG/TAB 25 TAB/BOTTLE SL PRN (16:06)
[2016-09-29] MEDS: OXYCODONE HCL IR 5 MG TABLET PO PRN (16:19)
[2016-09-29] MEDS: INSULIN LISPRO 100 UNIT/ML 3 ML VIAL SUBCUT PRN ×2 (19:00→21:40)
--- NOTE | 2016-09-29 19:45 | PDOC CONSULTATION ---
Consultation Consult Date: 09/29/16 Attending physician:: NEPTALI ROMERO Consult reason:: dyspnea History of Present Illness Admission Date/PCP: 09/29/16 01:56 History of Present Illness: CHUCKIE OSPINA is a 46 year old obese female, with underlying pulmonary fibrosis.She notes one-week history of progressive difficulty breathing, with associated productive cough and fever greater than 102 and the previous 24 hours. Respiratory difficulty is particularly worsened over the last 24 hours.Long standing O2 dependent pulmonary fibrosis of unconfirmed etiology.She denies hemoptyis,PPD was neg in past.She was on transplant list in [place] but refused tertiary care referral in [facility].She has no showed recent office visit.She is currently resting comfortably on BI-PAP. Past Medical History Cardiac Medical History: Reports: Pulmonary Embolism Pulmonary Medical History: Reports: Asthma, Bronchitis, Chronic Obstructive Pulmonary Disease (COPD), Respiratory Failure, Other - Pulmonary fibrosis with history of boot Denies: Pneumonia, Sleep Apnea, Tuberculosis Malignancy Medical History: Denies: Lung Cancer Psychiatric Medical History: Denies: Depression Infectious Medical History: Denies: Clostridium Difficile, Hepatitis B, Hepatitis C, Methicillin- Resistant Staph Aureus Past Surgical History Past Surgical History: Reports: Appendectomy - 1989, Hysterectomy, Tonsillectomy - 1974 Denies: Pacemaker Social History Information Source: Patient, DrFarideh Vu, [facility] Records Lives with: Family Smoking Status: Never Smoker Last Time Smoked: 2011 Passive smoke exposure as: Both Frequency of Alcohol Use: None Hx Recreational Drug Use: No Drugs: None Hx Prescription Drug Abuse: No Do you have pets?: No Have you had any respiratory illnesses as a child?: No Have you been exposed to any sick contacts recently?: No - Advance Directive Resuscitation Status: Full Code Family History Family History: Arthritis, COPD - Father, Other - Pulmonary hypertension in mother, Father with pulmonary fibrosis Parental Family History Reviewed: Yes Children Family History Reviewed: Yes Sibling(s) Family History Reviewed.: Yes Medication/Allergy Home Medications: Oxycodone HCl [Oxycodone HCl 10 MG Tablet] 15 mg PO Q8HP PRN 04/12/15 Oxycodone HCl [Oxycontin] 30 mg PO BID 01/02/16 Cyclobenzaprine HCl [Flexeril 10 mg Tablet] 10 mg PO TIDP PRN 01/17/16 Hydroxyzine HCl [Hydroxyzine HCl] 25 mg PO Q12 PRN 09/28/16 Promethazine HCl [Promethazine HCl] 25 mg PO Q6HP PRN 09/28/16 Duloxetine HCl 60 mg PO DAILY 09/29/16 Ipratropium/Albuterol Sulfate [Iprat-Albut 0.5-3(2.5) mg/3 ml] 1 inh IH Q6HP PRN 09/29/16 Montelukast Sodium [Singulair 10 mg Tablet] 10 mg PO QHS 09/29/16 Omeprazole 40 mg PO DAILY 09/29/16 Prednisone [Deltasone 20 mg Tablet] 20 mg PO DAILY 09/29/16 Tiotropium Br/Olodaterol HCl [Stiolto Respimat Inhal [place]] 1 puff IH DAILY 04/17 Allergies/Adverse Reactions: piperacillin sodium [From Zosyn] Allergy (Unknown, Verified 09/29/16 01:52) Unknown reaction tazobactam sodium [From Zosyn] Allergy (Unknown, Verified 04/12/15 14:39) Unknown reaction Review of Systems All systems: reviewed and no additional remarkable complaints except as stated Physical Exam Vital Signs: Temp Pulse Resp BP Pulse Ox 97.5 F 77 16 113/69 94 09/29/16 07:21 09/29/16 07:21 09/29/16 07:21 09/29/16 07:21 09/29/16 07:21 Intake & Output 09/28/16 09/29/16 09/30/16 06:59 06:59 06:59 Intake Total 321 Output Total 1000 Balance -679 Weight 111.5 kg General appearance: PRESENT: disheveled, mild distress, morbidly obese, well- developed Head exam: PRESENT: atraumatic, normocephalic Eye exam: PRESENT: conjunctiva pale, EOMI Mouth exam: PRESENT: dry mucosa, neck supple, tongue midline Neck exam: ABSENT: carotid bruit, JVD, lymphadenopathy, thyromegaly Respiratory exam: PRESENT: decreased breath sounds, prolonged expiratory phas, rhonchi Cardiovascular exam: PRESENT: RRR, +S1, +S2 Pulses: PRESENT: normal radial pulses GI/Abdominal exam: PRESENT: normal bowel sounds, soft. ABSENT: distended, guarding, mass, organolmegaly, rebound, tenderness Rectal exam: PRESENT: deferred Musculoskeletal exam: PRESENT: normal inspection Skin exam: PRESENT: dry, warm Results Laboratory Results: 09/29/16 06:34 09/29/16 06:34 09/29/16 09/29/16 09/29/16 02:35 03:30 06:34 WBC 15.3 H RBC 4.34 Hgb 9.8 L Hct 31.3 L MCV 72 L MCH 22.6 L MCHC 31.3 L RDW 19.0 H Plt Count 328 Seg Neutrophils % 90.8 H Lymphocytes % 6.6 L Monocytes % 2.3 L Eosinophils % 0.0 Basophils % 0.3 Absolute Neutrophils 13.9 H Absolute Lymphocytes 1.0 Absolute Monocytes 0.4 Absolute Eosinophils 0.0 Absolute Basophils 0.0 VBG pH 7.37 VBG pCO2 49.9 VBG HCO3 28.3 VBG Base Excess 2.3 Sodium Potassium Chloride Carbon Dioxide Anion Gap BUN Creatinine Est GFR ( Amer) Est GFR (Non-Af Amer) Glucose Calcium Total Bilirubin AST ALT Alkaline Phosphatase Total Protein Albumin Urine Color YELLOW Urine Appearance CLEAR Urine pH 6.0 Ur Specific [place] 1.009 Urine Protein NEGATIVE Urine Glucose (UA) 50 H Urine Ketones NEGATIVE Urine Blood NEGATIVE Urine Nitrite NEGATIVE Ur Leukocyte Esterase NEGATIVE Urine WBC (Auto) 0 Urine RBC (Auto) 1 09/29/16 09/29/16 06:34 06:34 WBC RBC Hgb Hct MCV MCH MCHC RDW Plt Count Seg Neutrophils % Lymphocytes % Monocytes % Eosinophils % Basophils % Absolute Neutrophils Absolute Lymphocytes Absolute Monocytes Absolute Eosinophils Absolute Basophils VBG pH 7.38 VBG pCO2 47.4 VBG HCO3 27.2 VBG Base Excess 1.4 Sodium 133.2 L Potassium 4.3 Chloride 100 Carbon Dioxide 25 Anion Gap 8 BUN 6 L Creatinine 0.41 L Est GFR ( Amer) > 60 Est GFR (Non-Af Amer) > 60 Glucose 260 H Calcium 8.2 L Total Bilirubin 0.5 AST 111 H ALT 191 H Alkaline Phosphatase 165 H Total Protein 6.0 L Albumin 3.2 L Urine Color Urine Appearance Urine pH Ur Specific [place] Urine Protein Urine Glucose (UA) Urine Ketones Urine Blood Urine Nitrite Ur Leukocyte Esterase Urine WBC (Auto) Urine RBC (Auto) Impressions: Chest X-Ray 09/28/16 20:33 IMPRESSION: Bilateral pneumonia. Assessment & Plan - Diagnosis (1) Acute and chronic respiratory failure with hypercapnia Is this a current diagnosis for this admission?: YesPlan: improved with BIPAP (2) BOOP (bronchiolitis obliterans with organizing pneumonia) Is this a current diagnosis for this admission?: Yes (3) Elevated LFTs Is this a current diagnosis for this admission?: Yes
[2016-09-29 20:50] LABS: CREATINE KINASE MB 2.97 ng/mL (<4.55)
[2016-09-29 20:55] LABS: TROPONIN I < 0.012 ng/mL
[2016-09-29] MEDS: OXYCODONE HCL SR 10 MG TABLET PO SCH (21:39)
[2016-09-29] MEDS: MONTELUKAST SODIUM 10 MG TABLET PO SCH (21:39)
[2016-09-29] MEDS: METHYLPREDNISOLONE INJ 40 MG/1 ML SDV IV SCH (21:50)
[2016-09-29] MEDS: NORMAL SALINE 1000 ML 1,000 ML IV PRN (21:50)
--- NOTE | 2016-09-29 22:24 | EKG REPORT ---
SEVERITY:- NORMAL ECG - SINUS RHYTHM : Confirmed by: Octavio Matson 29-Sep-2016 22:23:46
[2016-09-29] MEDS ORDERED: MORPHINE SULFATE 10 MG/ML INJ IV ONE (23:00)
[2016-09-30] MEDS: OXYCODONE HCL IR 5 MG TABLET PO PRN (02:45)
[2016-09-30 06:18] LABS: ABSOLUTE BASOPHILS # (AUTO) 0.1 10^3/uL (0.0-0.2); ABSOLUTE LYMPHOCYTES (AUTO) 1.3 10^3/uL (0.5-4.7); ABSOLUTE MONOCYTES (AUTO) 0.9 10^3/uL (0.1-1.4); ABSOLUTE NEUT (AUTO) 16.2 10^3/uL (1.7-8.2); BASOPHILS % (AUTO) 0.7 % (0-2); HEMATOCRIT 29.6 % (36.0-47.0); HEMOGLOBIN 9.2 g/dL (12.0-15.5); LYMPHOCYTES % (AUTO) 7.2 % (13-45); MEAN CORPUSCULAR HEMOGLOBIN 22.6 pg (27.0-33.4); MEAN CORPUSCULAR VOLUME 73 fl (80-97); MONOCYTES % (AUTO) 5.1 % (3-13); RED BLOOD COUNT 4.06 10^6/uL (3.72-5.28); RED CELL DISTRIBUTION WIDTH 19.2 % (11.5-14.0); WHITE BLOOD COUNT 18.6 10^3/uL (4.0-10.5)
[2016-09-30] MEDS: VANCOMYCIN HCL 1,500 MG in DEXTROSE 5%-WATER 250 ML IV SCH (06:24)
[2016-09-30] MEDS: METHYLPREDNISOLONE INJ 40 MG/1 ML SDV IV SCH ×3 (06:24→21:29)
[2016-09-30] MEDS: LANSOPRAZOLE 30 MG TAB.RAP.DR PO SCH ×2 (06:25→14:55)
[2016-09-30 06:28] LABS: ARTERIAL BLOOD BASE EXCESS 3.2 mmol/L; ARTERIAL BLOOD O2 SATURATION 89.8 % (94-98)
[2016-09-30 06:32] LABS: ALANINE AMINOTRANSFERASE 118 U/L (9-52); ALBUMIN 2.9 g/dL (3.5-5.0); ALKALINE PHOSPHATASE 138 U/L (38-126); ANION GAP 8 (5-19); ASPARTATE AMINO TRANSFERASE 35 U/L (14-36); BILIRUBIN,DIRECT 0.3 mg/dL (0.0-0.4); BILIRUBIN,TOTAL 0.3 mg/dL (0.2-1.3); BLOOD UREA NITROGEN 10 mg/dL (7-20); CALCIUM 8.1 mg/dL (8.4-10.2); CARBON DIOXIDE 28 mmol/L (22-30); CHLORIDE 101 mmol/L (98-107); CREATINE KINASE 454 U/L (30-135); CREATININE RESULT 0.44 mg/dL (0.52-1.25); GLUCOSE 208 mg/dL (75-110); MAGNESIUM 2.2 mg/dL (1.6-2.3); POTASSIUM 4.2 mmol/L (3.6-5.0); SODIUM 136.6 mmol/L (137-145); TOTAL PROTEIN 5.6 g/dL (6.3-8.2)
[2016-09-30] MEDS: IPRATROPIUM/ALBUTEROL 0.5-2.5 MG/3 ML AMPUL NEB SCH ×3 (08:08→20:15)
--- NOTE | 2016-09-30 08:47 | PDOC PROGRESS REPORT ---
Subjective Progress Note for:: 09/30/16 Subjective:: Patient has continued pain, tachycardia, bilateral lower anterior chest pain. She denies fever, chills. Physical Exam Vital Signs: Temp Pulse Resp BP Pulse Ox 97.7 F 127 H 26 H 104/66 96 09/30/16 03:34 09/30/16 03:52 09/30/16 03:52 09/30/16 03:34 09/30/16 03:52 Intake & Output 09/29/16 09/30/16 10/01/16 06:59 06:59 06:59 Intake Total 321 3894 Output Total 1000 3550 Balance -679 344 Weight 111.5 kg 111.8 kg GENERAL: No acute distress HEENT: Conjunctiva clear, nonicteric, moist mucous membranes, no JVD, midline trachea RESPIRATORY: Faint wheezes in bilateral anterior lung padilla, good air excursion CARDIAC: Regular rate and rhythm, no murmurs/gallops/rubs ABDOMEN: Soft, nondistended, nontender, positive bowel sounds, no rebound, no guarding EXTREMETIES: 1+ edema bilateral lower extremities NEUROLOGIC: Alert, oriented to person/place/time, CN's grossly intact, no focal deficits SKIN: No rash, wounds PSYCH: Normal mood, normal affect Results Laboratory Results: 09/30/16 06:02 09/30/16 06:02 09/29/16 09/29/16 09/30/16 06:34 20:15 00:23 WBC RBC Hgb Hct MCV MCH MCHC RDW Plt Count Seg Neutrophils % Lymphocytes % Monocytes % Eosinophils % Basophils % Absolute Neutrophils Absolute Lymphocytes Absolute Monocytes Absolute Eosinophils Absolute Basophils Carbonic Acid HCO3/H2CO3 Ratio ABG pH ABG pCO2 ABG pO2 ABG HCO3 ABG O2 Saturation ABG Base Excess FiO2 Sodium Potassium Chloride Carbon Dioxide Anion Gap BUN Creatinine Est GFR ( Amer) Est GFR (Non-Af Amer) Glucose Lactic Acid 2.3 H 2.1 Calcium Magnesium Total Bilirubin AST ALT Alkaline Phosphatase Total Protein Albumin TSH 0.40 L Free T4 0.87 Free T3 pg/mL 2.87 09/30/16 09/30/16 09/30/16 06:02 06:02 06:15 WBC 18.6 H RBC 4.06 Hgb 9.2 L Hct 29.6 L MCV 73 L MCH 22.6 L MCHC 31.0 L RDW 19.2 H Plt Count 344 Seg Neutrophils % 87.0 H Lymphocytes % 7.2 L Monocytes % 5.1 Eosinophils % 0.0 Basophils % 0.7 Absolute Neutrophils 16.2 H Absolute Lymphocytes 1.3 Absolute Monocytes 0.9 Absolute Eosinophils 0.0 Absolute Basophils 0.1 Carbonic Acid 1.35 HCO3/H2CO3 Ratio 20:1 ABG pH 7.42 ABG pCO2 45.0 ABG pO2 56.7 L ABG HCO3 28.2 H ABG O2 Saturation 89.8 L ABG Base Excess 3.2 FiO2 40& Sodium 136.6 L Potassium 4.2 Chloride 101 Carbon Dioxide 28 Anion Gap 8 BUN 10 Creatinine 0.44 L Est GFR ( Amer) > 60 Est GFR (Non-Af Amer) > 60 Glucose 208 H Lactic Acid Calcium 8.1 L Magnesium 2.2 Total Bilirubin 0.3 AST 35 ALT 118 H Alkaline Phosphatase 138 H Total Protein 5.6 L Albumin 2.9 L TSH Free T4 Free T3 pg/mL 09/29/16 09/29/16 09/29/16 08:26 08:26 08:26 Creatine Kinase 1038 H CK-MB (CK-2) 4.43 Troponin I < 0.012 NT-Pro-B Natriuret Pep 715 H 09/29/16 09/29/16 09/29/16 14:25 14:25 14:25 Creatine Kinase 859 H CK-MB (CK-2) 3.71 Troponin I < 0.012 NT-Pro-B Natriuret Pep 942 H 09/29/16 09/29/16 09/30/16 20:15 20:15 06:02 Creatine Kinase 670 H 454 H CK-MB (CK-2) 2.97 Troponin I < 0.012 NT-Pro-B Natriuret Pep Impressions: Chest X-Ray 09/29/16 00:00 IMPRESSION: Stable exam. Assessment & Plan - Diagnosis (1) Acute and chronic respiratory failure with hypercapnia Is this a current diagnosis for this admission?: YesPlan: Continue BiPAP. Check CTA chest to rule out PE. Dr. Luis of pulmonary medicine has been consulted. (2) Pneumonia Qualifiers: Pneumonia type: due to unspecified organism Laterality: bilateral Lung location: unspecified part of lung Qualified Code(s): J18.9 - Pneumonia , unspecified organism Is this a current diagnosis for this admission?: YesPlan: Likely bacterial. Continue IV cefepime, Levaquin, vancomycin pending further culture. (3) BOOP (bronchiolitis obliterans with organizing pneumonia) Is this a current diagnosis for this admission?: YesPlan: Continue IV Solu-Medrol. (4) Edema Is this a current diagnosis for this admission?: YesPlan: Hold off on scheduled diuretic therapy for now as I am administering IV fluids for rhabdomyolysis. Patient does not have pulmonary edema on chest x-ray. ProBNP is elevated however. Echocardiogram is pending. (5) Chronic pain Is this a current diagnosis for this admission?: YesPlan: Chronic opiate dependence. Scheduled OxyContin. Discontinue as needed oxycodone. Start as needed IV morphine. (6) Anemia Qualifiers: Anemia type: unspecified type Qualified Code(s): D64.9 - Anemia, unspecified Is this a current diagnosis for this admission?: Yes (7) Elevated LFTs Is this a current diagnosis for this admission?: YesPlan: Status post cholecystectomy. Etiology unclear. Patient's chronic medications would not typically be implicated in this. Check viral hepatitis panel. Given peripheral edema and elevated proBNP level right heart failure could be contributing so we will check echocardiogram. (8) Rhabdomyolysis Qualifiers: Rhabdomyolysis type: non-traumatic Qualified Code(s): M62.82 - Rhabdomyolysis Is this a current diagnosis for this admission?: YesPlan: Continue IV fluids. CPK improving. - Time Time Spent with patient: 35 or more minutes
[2016-09-30] MEDS: LEVOFLOXACIN 750 MG/D5W RTU 150 ML IV SCH (09:20)
[2016-09-30] MEDS: OXYCODONE HCL SR 10 MG TABLET PO SCH ×2 (09:21→21:23)
[2016-09-30] MEDS: CEFEPIME 2 GM/D5W RTU 50 ML IV SCH ×2 (09:21→21:29)
[2016-09-30] MEDS: ENOXAPARIN SODIUM INJ 40 MG/0.4 ML DISP.SYRIN SUBCUT SCH (09:22)
[2016-09-30] MEDS: NORMAL SALINE 1000 ML 1,000 ML IV PRN (09:22)
[2016-09-30] MEDS: INSULIN LISPRO 100 UNIT/ML 3 ML VIAL SUBCUT PRN ×2 (09:23→22:31)
[2016-09-30] MEDS ORDERED: SUCCINYLCHOLINE CHLORIDE INJ 200 MG/10 ML VIAL ONE (09:31)
[2016-09-30] MEDS: KETOROLAC TROMETHAMINE INJ/PF 30 MG/1 ML SDV IV PRN ×2 (09:40→17:11)
[2016-09-30] MEDS ORDERED: DULOXETINE HCL 30 MG CAPSULE.DR PO SCH (10:00)
--- NOTE | 2016-09-30 10:48 | RADIOLOGY REPORT (SQ) ---
EXAM DESCRIPTION: CTA CHEST COMPLETED DATE/TIME: 09/30/2016 10:28 am REASON FOR STUDY: resp failure, tachycardia COMPARISON: Chest radiograph 09/29/2016 TECHNIQUE: CT scan of the chest performed using helical scanning technique with dynamic intravenous contrast injection. Images reviewed with lung, soft tissue and bone windows. Reconstructed coronal and sagittal MPR images reviewed. Additional 3 dimensional post-processing performed to develop Maximal Intensity Projection images (VA P). All images stored on PACS. All CT scanners at this facility use dose modulation, iterative reconstruction, and/or weight based d osing when appropriate to reduce radiation dose to as low as reasonably achievable (ALARA). [facility]: Dose Right [facility]: CareDose [facility]: Dose Right [facility]: Teradose 4D [facility]: Qivivo CONTRAST TYPE AND DOSE: contrast/concentration: Isovue 370.00 mg/ml; Total Contrast Delivered: 82.0 ml; Total Saline Delivered: 106.0 ml RENAL FUNCTION: GFR > 60. RADIATION DOSE: 91.55 . LIMITATIONS: None. FINDINGS: LUNGS AND PLEURA: Extensive parenchymal airspace disease throughout both lungs and mosaic like pattern. AORTA AND GREAT VESSELS: No aneurysm HEART: No pericardial effusion. PULMONARY ARTERIES: No emboli visualized in the main pulmonary arteries or the segmental branches. HILAR AND MEDIASTINAL STRUCTURES: No identified masses or abnormal nodes. HARDWARE: None in the chest. UPPER ABDOMEN: No significant findings. Limited exam. THYROID AND OTHER SOFT TISSUES: No masses. No adenopathy. BONES: No acute or significant finding. 3D MIPS: Confirm above findings. OTHER: Breast prostheses. IMPRESSION: No pulmonary emboli. Extensive parenchymal airspace disease most likely infectious. TECHNICAL DOCUMENTATION: JOB ID: [id number] Quality ID # [id number]: Final reports with documentation of one or more dose reduction techniques (e.g., Au tomated exposure control, adjustment of the mA and/or kV according to patient size, use of iterative reconstruction technique) 2010 [employer]- All Rights Reserved
[2016-09-30] MEDS ORDERED: LORAZEPAM INJ 2 MG/1 ML VIAL IV ONE (11:00)
[2016-09-30] MEDS: VANCOMYCIN HCL 1,250 MG in DEXTROSE 5%-WATER 250 ML IV SCH ×2 (13:45→19:05)
[2016-09-30] MEDS: MORPHINE SULFATE 10 MG/ML INJ IV PRN ×2 (14:20→19:05)
[2016-09-30] MEDS: PROMETHAZINE HCL 25 MG TABLET PO PRN (21:24)
[2016-09-30] MEDS: MONTELUKAST SODIUM 10 MG TABLET PO SCH (21:27)
[2016-09-30] MEDS ORDERED: ACETAMINOPHEN SOLN 325 MG/10.15 ML UDCUP NG PRN (22:31)
[2016-09-30] MEDS ORDERED: INSULIN LISPRO 100 UNIT/ML 3 ML VIAL SUBCUT PRN (22:34)
[2016-09-30] MEDS ORDERED: NORMAL SALINE 1000 ML 1,000 ML IV PRN (22:34)
[2016-09-30] MEDS ORDERED: PROMETHAZINE HCL 25 MG SUPP.RECT PR PRN (22:42)
[2016-09-30] MEDS ORDERED: DEXTROSE 40% GEL 15 GM TUBE NG PRN ×2 (22:45)
[2016-09-30] MEDS ORDERED: MORPHINE SULFATE 10 MG/ML INJ IV PRN ×2 (22:55→22:59)
[2016-09-30] MEDS ORDERED: MORPHINE SULFATE 10 MG/ML INJ IV ONE ×2 (23:00→23:03)
[2016-09-30] MEDS ORDERED: MONTELUKAST SODIUM 10 MG TABLET NG ONE (23:00)
--- NOTE | 2016-09-30 23:27 | RADIOLOGY REPORT (SQ) ---
EXAM DESCRIPTION: CHEST SINGLE VIEW COMPLETED DATE/TIME: 09/30/2016 11:10 pm REASON FOR STUDY: intubation COMPARISON: CT from earlier. FINDINGS: Single-view chest AP portable supine timed 2256 hours. Endotracheal tube in place, grossly appropriate. Nasogastric tube down, tip appears to be coursing i nto the abdomen. Diffuse multifocal patchy airspace infiltrates bilaterally. IMPRESSION: Grossly appropriate tubes. Diffuse infiltrates persist. TECHNICAL DOCUMENTATION: JOB ID: [id number]
[2016-10-01] MEDS: VANCOMYCIN HCL 1,250 MG in DEXTROSE 5%-WATER 250 ML IV SCH ×2 (00:07→06:26)
--- NOTE | 2016-10-01 00:13 | OPERATIVE REPORT E ---
Operative Report NAME: CHUCKIE OSPINA : 1970 AGE: 46Y DATE OF SURGERY: 09/30/2016 ROOM: [id number] PREOPERATIVE DIAGNOSIS: Poor veins for IV access and patient intubated for respiratory failure. POSTOPERATIVE DIAGNOSIS: Poor veins for IV access and patient intubated for respiratory failure. PROCEDURE PERFORMED: Placement of right femoral vein triple lumen catheter under ultrasound guidance. SURGEON: KVNG DUNN M.D. ANESTHESIA: Sedation. INDICATION: This is a 46-year-old female who got intubated for respiratory failure. She has poor peripheral veins for IV access and needed a central line for medications and fluids. DESCRIPTION OF PROCEDURE: Patient was placed in supine position and the right groin prepped and draped in the usual sterile fashion. The patient was given IV propofol. With use of an ultrasound, the right femoral vein was then identified and punctured, and guidewire passed with a needle into the inferior vena cava. A dilator was used to dilate the insertion site and a 3-way catheter was then placed through the guidewire into the inferior vena cava. The catheter was then secured to the skin with 3-0 silk and the 3 ports irrigated with saline solution. Also, not easily aspirated. Next, a Biopatch placed at the insertion site and a transpire dressing was used to dress the catheter. Patient tolerated the procedure well. DICTATING PHYSICIAN: KVNG DUNN M.D. [id number] PHY#: [id number] ID: [id number] JOB#: [id number] ACCT: [id number] cc:KVNG DUNN M.D. >
[2016-10-01 01:49] LABS: VENOUS BLOOD BASE EXCESS 2.2 mmol/L; VENOUS BLOOD HCO3 28.8 mmol/L (20-32); VENOUS BLOOD PCO2 56.2 mmHg (35-63); VENOUS BLOOD PH 7.33 (7.30-7.42)
[2016-10-01] MEDS ORDERED: METHYLPREDNISOLONE INJ 40 MG/1 ML SDV IV SCH (02:00)
[2016-10-01] MEDS: PROPOFOL 100 ML IV PRN ×7 (02:49→10:45)
[2016-10-01] MEDS: NORMAL SALINE 500 ML with ROCURONIUM BROMIDE 500 MG IV PRN ×4 (03:01→10:41)
[2016-10-01 06:22] LABS: ABSOLUTE LYMPHOCYTES (AUTO) 1.1 10^3/uL (0.5-4.7); ABSOLUTE MONOCYTES (AUTO) 0.4 10^3/uL (0.1-1.4); ABSOLUTE NEUT (AUTO) 11.7 10^3/uL (1.7-8.2); BASOPHILS % (AUTO) 0.3 % (0-2); HEMATOCRIT 29.2 % (36.0-47.0); HGB HCT DIFFERENCE -2.2; LYMPHOCYTES % (AUTO) 8.5 % (13-45); MEAN CORPUSCULAR HEMOGLOBIN 22.7 pg (27.0-33.4); MEAN CORPUSCULAR HGB CONC 30.9 g/dL (32.0-36.0); MEAN CORPUSCULAR VOLUME 73 fl (80-97); MONOCYTES % (AUTO) 3.3 % (3-13); RED BLOOD COUNT 3.98 10^6/uL (3.72-5.28); RED CELL DISTRIBUTION WIDTH 19.4 % (11.5-14.0); SEGMENTED NEUTROPHILS % (AUTO) 87.9 % (42-78); WHITE BLOOD COUNT 13.3 10^3/uL (4.0-10.5)
[2016-10-01 06:23] LABS: ARTERIAL BLOOD BASE EXCESS 3.8 mmol/L; ARTERIAL BLOOD O2 SATURATION 93.6 % (94-98)
[2016-10-01 06:33] LABS: ANION GAP 6 (5-19); BLOOD UREA NITROGEN 8 mg/dL (7-20); CALCIUM 8.1 mg/dL (8.4-10.2); CARBON DIOXIDE 29 mmol/L (22-30); CHLORIDE 106 mmol/L (98-107); CREATININE RESULT 0.42 mg/dL (0.52-1.25); GLUCOSE 184 mg/dL (75-110); MAGNESIUM 2.4 mg/dL (1.6-2.3); POTASSIUM 4.7 mmol/L (3.6-5.0); SODIUM 141.2 mmol/L (137-145)
[2016-10-01] MEDS ORDERED: ROCURONIUM BROMIDE INJ 50 MG/5 ML VIAL IV ONE (08:01)
--- NOTE | 2016-10-01 08:33 | PDOC PROGRESS REPORT ---
Subjective Progress Note for:: 10/01/16 Subjective:: acutely transfer to ICU with progressive acute/chronic respiratory failure intubated,sedated Physical Exam Vital Signs: Temp Pulse Resp BP Pulse Ox 97.9 F 95 20 137/88 H 94 10/01/16 07:58 10/01/16 07:58 10/01/16 07:58 10/01/16 07:58 10/01/16 07:58 Intake & Output 09/30/16 10/01/16 10/02/16 06:59 06:59 06:59 Intake Total 3894 3794 Output Total 3550 2250 50 Balance 344 1544 -50 Weight 111.8 kg General appearance: PRESENT: no acute distress, disheveled, obese, well- developed Head exam: PRESENT: atraumatic, normocephalic Eye exam: PRESENT: conjunctiva pale Mouth exam: PRESENT: dry mucosa, neck supple, tongue midline, other - ET tube in place Neck exam: ABSENT: carotid bruit, JVD, lymphadenopathy, thyromegaly Respiratory exam: PRESENT: decreased breath sounds, prolonged expiratory phas, rales, rhonchi, symmetrical, wheezes Cardiovascular exam: PRESENT: RRR, +S1, +S2 Pulses: PRESENT: normal radial pulses GI/Abdominal exam: PRESENT: normal bowel sounds, soft. ABSENT: distended, guarding, mass, organolmegaly, rebound, tenderness Rectal exam: PRESENT: deferred Gentrourinary exam: PRESENT: indwelling catheter Musculoskeletal exam: PRESENT: normal inspection Skin exam: PRESENT: dry, warm Results Laboratory Results: 10/01/16 06:00 10/01/16 06:00 09/30/16 10/01/16 10/01/16 20:00 00:25 01:30 WBC RBC Hgb Hct MCV MCH MCHC RDW Plt Count Seg Neutrophils % Lymphocytes % Monocytes % Eosinophils % Basophils % Absolute Neutrophils Absolute Lymphocytes Absolute Monocytes Absolute Eosinophils Absolute Basophils Carbonic Acid HCO3/H2CO3 Ratio ABG pH ABG pCO2 ABG pO2 ABG HCO3 ABG O2 Saturation ABG Base Excess VBG pH 7.33 VBG pCO2 56.2 VBG HCO3 28.8 VBG Base Excess 2.2 FiO2 Sodium Potassium Chloride Carbon Dioxide Anion Gap BUN Creatinine Est GFR ( Amer) Est GFR (Non-Af Amer) Glucose Lactic Acid 3.3 H 1.7 Calcium Magnesium 10/01/16 10/01/16 10/01/16 06:00 06:00 06:00 WBC 13.3 H RBC 3.98 Hgb 9.0 L Hct 29.2 L MCV 73 L MCH 22.7 L MCHC 30.9 L RDW 19.4 H Plt Count 357 Seg Neutrophils % 87.9 H Lymphocytes % 8.5 L Monocytes % 3.3 Eosinophils % 0.0 Basophils % 0.3 Absolute Neutrophils 11.7 H Absolute Lymphocytes 1.1 Absolute Monocytes 0.4 Absolute Eosinophils 0.0 Absolute Basophils 0.0 Carbonic Acid 1.58 H HCO3/H2CO3 Ratio 18:1 ABG pH 7.37 ABG pCO2 52.6 H ABG pO2 71.0 L ABG HCO3 29.8 H ABG O2 Saturation 93.6 L ABG Base Excess 3.8 VBG pH VBG pCO2 VBG HCO3 VBG Base Excess FiO2 50% Sodium 141.2 Potassium 4.7 Chloride 106 Carbon Dioxide 29 Anion Gap 6 BUN 8 Creatinine 0.42 L Est GFR ( Amer) > 60 Est GFR (Non-Af Amer) > 60 Glucose 184 H Lactic Acid Calcium 8.1 L Magnesium 2.4 H 09/29/16 15:00 Sputum Gram Stain - Final 09/29/16 15:00 Sputum Sputum Culture - Final 09/29/16 09/29/16 09/29/16 08:26 08:26 08:26 Creatine Kinase 1038 H CK-MB (CK-2) 4.43 Troponin I < 0.012 NT-Pro-B Natriuret Pep 715 H 09/29/16 09/29/16 09/29/16 14:25 14:25 14:25 Creatine Kinase 859 H CK-MB (CK-2) 3.71 Troponin I < 0.012 NT-Pro-B Natriuret Pep 942 H 09/29/16 09/29/16 09/30/16 20:15 20:15 06:02 Creatine Kinase 670 H 454 H CK-MB (CK-2) 2.97 Troponin I < 0.012 NT-Pro-B Natriuret Pep Impressions: Chest X-Ray 09/30/16 00:00 IMPRESSION: Grossly appropriate tubes. Diffuse infiltrates persist. Chest/Abdomen CTA 09/30/16 00:00 IMPRESSION: No pulmonary emboli. Extensive parenchymal airspace disease most likely infectious. Assessment & Plan - Diagnosis (1) Acute and chronic respiratory failure with hypercapnia Is this a current diagnosis for this admission?: YesPlan: discussed with Dr Damien Mason patient best served at tertiary care center (2) BOOP (bronchiolitis obliterans with organizing pneumonia) Is this a current diagnosis for this admission?: Yes (3) Elevated LFTs Is this a current diagnosis for this admission?: Yes - Time Time Spent with patient: 35 or more minutes - 40 min
[2016-10-01] MEDS: IPRATROPIUM/ALBUTEROL 0.5-2.5 MG/3 ML AMPUL NEB SCH (08:35)
--- NOTE | 2016-10-01 08:37 | PDOC TRANSFER SUMMARY ---
General Admission Date/PCP: 09/29/16 01:56 Admission Date: 09/29/16 Transfer Date: 10/01/16 Accepting Facility: [facility] Accepting Physician: Dr. Ike Couch Resuscitation Status: Full Code - Transfer Diagnosis (1) Acute and chronic respiratory failure with hypercapnia Is this a current diagnosis for this admission?: Yes (2) Pneumonia Is this a current diagnosis for this admission?: Yes (3) BOOP (bronchiolitis obliterans with organizing pneumonia) Is this a current diagnosis for this admission?: Yes (4) Edema Is this a current diagnosis for this admission?: Yes (5) Chronic pain Is this a current diagnosis for this admission?: Yes (6) Anemia Is this a current diagnosis for this admission?: Yes (7) Elevated LFTs Is this a current diagnosis for this admission?: Yes (8) Rhabdomyolysis Is this a current diagnosis for this admission?: Yes - Transfer Medications Home Medications: Oxycodone HCl [Oxycodone HCl 10 MG Tablet] 15 mg PO Q8HP PRN 04/12/15 Oxycodone HCl [Oxycontin] 30 mg PO BID 01/02/16 Cyclobenzaprine HCl [Flexeril 10 mg Tablet] 10 mg PO TIDP PRN 01/17/16 Hydroxyzine HCl [Hydroxyzine HCl] 25 mg PO Q12 PRN 09/28/16 Promethazine HCl [Promethazine HCl] 25 mg PO Q6HP PRN 09/28/16 Duloxetine HCl 60 mg PO DAILY 09/29/16 Ipratropium/Albuterol Sulfate [Iprat-Albut 0.5-3(2.5) mg/3 ml] 1 inh IH Q6HP PRN 09/29/16 Montelukast Sodium [Singulair 10 mg Tablet] 10 mg PO QHS 09/29/16 Omeprazole 40 mg PO DAILY 09/29/16 Prednisone [Deltasone 20 mg Tablet] 20 mg PO DAILY 09/29/16 Tiotropium Br/Olodaterol HCl [Stiolto Respimat Inhal [place]] 1 puff IH DAILY 04/17 Transfer Medications: Current Medications Acetaminophen (Tylenol Soln 325 Mg/10.15 Ml Udcup) 650 mg NG Q8HP PRN PRN Reason: FOR PAIN OR TEMP Stop: 10/30/16 22:30 Albuterol (Ventolin 0.083% Neb 2.5 Mg/3 Ml Ampul) 2.5 mg NEB RTQ4HP PRN PRN Reason: SHORTNESS OF BREATH Stop: 10/29/16 01:55 Last Admin: 09/30/16 03:52 Dose: 2.5 mg Albuterol/Ipratropium (Duoneb 3 Ml Ampul) 3 ml NEB [id number] GAURI Stop: 10/29/16 07:59 Last Admin: 09/30/16 20:15 Dose: 3 ml Dextrose (Dextrose Inj 50% Syringe (25 Gm/50 Ml)) 12.5 gm IV PRN PRN; Protocol PRN Reason: FOR BG 50-69 IN ALERT PATIENT Stop: 10/29/16 02:01 Dextrose (Dextrose Inj 50% Syringe (25 Gm/50 Ml)) 25 gm IV PRN PRN PRN Reason: Protocol Stop: 10/29/16 02:01 Duloxetine HCl (Cymbalta 30 Mg Capsule.Dr) 60 mg PO DAILY GAURI Stop: 10/30/16 09:59 Last Admin: 09/30/16 09:21 Dose: 60 mg Enoxaparin Sodium (Lovenox Inj 40 Mg/0.4 Ml Disp.Syrin) 40 mg SUBCUT DAILY GAURI Stop: 10/29/16 09:59 Last Admin: 09/30/16 09:22 Dose: 40 mg Glucagon (Glucagen Inj 1 Mg Vial) 1 mg IM PRN PRN; Protocol PRN Reason: Evaluate for BG < 70 Stop: 10/29/16 02:01 Glucose (Glutose 40% Gel 15 Gm Tube) 30 gm NG PRN PRN; Protocol PRN Reason: FOR BG < 50 IN ALERT PATIENT Stop: 10/29/16 02:01 Glucose (Glutose 40% Gel 15 Gm Tube) 15 gm NG PRN PRN; Protocol PRN Reason: FOR BG 50-69 IN ALERT PATIENT Stop: 10/29/16 02:01 Guaifenesin (Robitussin Syrup 200 Mg/10 Ml Ud Cup) 200 mg PO Q4HP PRN PRN Reason: COUGH Stop: 10/29/16 01:55 Cefepime HCl (Maxipime Rtu 2 Gm-D5w 50 Ml Premix Bag) 50 mls @ 100 mls/hr IV Q12 GAURI Stop: 10/06/16 09:59 Last Admin: 09/30/16 21:29 Dose: 50 ml Levofloxacin/Dextrose (Levaquin Rtu 750 Mg/D5w 150 Ml Premix) 150 mls @ 100 mls /hr IV DAILY [facility] Stop: 10/06/16 09:59 Last Admin: 09/30/16 09:20 Dose: 150 ml Vancomycin HCl 1,250 mg/ (Dextrose) 250 mls @ 166.667 mls/hr IV Q6 [facility] Stop: 10/07/16 11:59 Last Admin: 10/01/16 06:26 Dose: 1,250 mg Propofol (Diprivan Rtu 1000 Mg/100 Ml Inf.Bottle) 100 mls @ 0 mls/hr IV CONTINUOUS PRN; Protocol; Titrate PRN Reason: THIS MED IS NOT "PRN" Stop: 10/30/16 22:28 Last Admin: 10/01/16 06:26 Dose: 100 ml Sodium Chloride (Nacl 0.9% 1000 Ml Iv Soln) 1,000 mls @ 125 mls/hr IV CONTINUOUS PRN PRN Reason: THIS MED IS NOT "PRN" Stop: 10/29/16 01:49 Last Admin: 10/01/16 03:03 Dose: 1,000 ml Rocuronium [place] 500 mg/ (Sodium Chloride) 550 mls @ 0 mls/hr IV CONTINUOUS PRN; Protocol; Titrate PRN Reason: THIS MED IS NOT "PRN" Stop: 10/30/16 23:15 Last Admin: 10/01/16 03:01 Dose: 500 mg Insulin Human Lispro (Humalog Insulin 100 Unit/1 Ml 3 Ml Vial) 0 - 12 unit SUBCUT Q6HP PRN PRN Reason: Protocol Stop: 10/30/16 22:28 Ketorolac Tromethamine (Toradol Inj/Pf 30 Mg/1 Ml Sdv) 30 mg IV Q8HP PRN PRN Reason: FOR PAIN Stop: 10/05/16 08:39 Last Admin: 09/30/16 17:11 Dose: 30 mg Methylprednisolone Sodium Succinate (Solu-Medrol Inj/Pf 125 Mg/2 Ml Sdv) 125 mg IV Q8 [facility] Stop: 10/31/16 13:59 Montelukast Sodium (Singulair 10 Mg Tablet) 10 mg NG QHS [facility] Stop: 10/31/16 21:59 Morphine Sulfate (Morphine 10 Mg/Ml Inj) 4 mg IV Q2HP PRN PRN Reason: PAIN Stop: 10/07/16 22:56 Last Admin: 10/01/16 02:47 Dose: 4 mg Nitroglycerin (Nitrostat 0.4 Mg (1/150 Gr) Tabs 25/Bottle) 1 tab SL Q5MP PRN Stop: 10/29/16 16:05 Oxycodone HCl (Oxycontin Sr 10 Mg Tablet) 30 mg PO Q12 GAURI Stop: 10/06/16 21:59 Last Admin: 09/30/16 21:23 Dose: 30 mg Promethazine HCl (Phenergan 25 Mg Supp.Rect) 12.5 mg WI Q8HP PRN PRN Reason: FOR NAUSEA/VOMITING Stop: 10/30/16 22:41 Sodium Chloride (Saline Flush 2.5 Ml Monoject Prefil Syrin) 2.5 ml IV Q8 GAURI Stop: 10/29/16 05:59 Last Admin: 10/01/16 06:27 Dose: Not Given - Allergies Allergies/Adverse Reactions: piperacillin sodium [From Zosyn] Allergy (Unknown, Verified 09/29/16 01:52) Unknown reaction tazobactam sodium [From Zosyn] Allergy (Unknown, Verified 04/12/15 14:39) Unknown reaction - Diet/Activity Discharge Diet: Other (Comments) Discharge Activity: Bedrest Hospital Course Hospital Course: Patient presented with difficulty breathing. She carries past medical history of pulmonary fibrosis, BOOP. She has been seen locally by Dr. Luis of pulmonary medicine over the past couple years. At one point she was referred to [facility] but did not go. Apparently she was on a transplant list in [place] prior to moving to the area. Nonetheless she was admitted with respiratory failure, pneumonia. She was started on broad- spectrum antibiotic coverage with IV cefepime, IV Levaquin, IV vancomycin. She was started on IV corticosteroids. She was started on bronchodilators. She was on BiPAP for the first couple days of admission and her respiratory status deteriorated to the point that she required intubation on the evening of 2016. Repeat imaging in the form of CT of the chest and chest x-ray showed diffuse bilateral airspace opacities. Patient's ventilator settings at the time of transfer were SIMV/pressure support tidal volume 450, rate 16, PEEP 5, FiO2 60%. ABG on these ventilator settings pH 7.37, PCO2 52.6, PaO2 71.0, bicarb 29.8, O2 sat 93.6. Case was discussed with Dr. Luis of pulmonary medicine had [facility] and subsequently Dr. Ike Couch at [facility] ICU. Dr. Couch has graciously accepted patient in transfer. Patient has chronic pain with chronic opiate dependence. She normally takes scheduled OxyContin as well as as needed oxycodone. Patient was noted to have elevated liver function studies. She is status post cholecystectomy. Review of her medications do not indicate any medications that should be implicated. Viral hepatitis panel is pending at time of discharge. Patient does have an elevated proBNP level and peripheral edema so right heart failure and passive congestion of the liver may be contributing. Physical Exam Vital Signs: Temp Pulse Resp BP Pulse Ox 97.9 F 95 20 137/88 H 94 10/01/16 07:58 10/01/16 07:58 10/01/16 07:58 10/01/16 07:58 10/01/16 07:58 Intake & Output 09/30/16 10/01/16 10/02/16 06:59 06:59 06:59 Intake Total 3894 3794 Output Total 3550 2250 50 Balance 344 1544 -50 Weight 111.8 kg GENERAL: No acute distress HEENT: Conjunctiva clear, nonicteric, moist mucous membranes, no JVD, endotracheal tube in place RESPIRATORY: Bilateral wheezes and rhonchi CARDIAC: Regular rate and rhythm, no murmurs/gallops/rubs ABDOMEN: Soft, nondistended, nontender, positive bowel sounds, no rebound, no guarding EXTREMETIES: 1+ edema bilateral lower extremities NEUROLOGIC: Sedated/on paralytics SKIN: No rash, wounds Results Laboratory Results: 10/01/16 06:00 10/01/16 06:00 09/30/16 10/01/16 10/01/16 20:00 00:25 01:30 WBC RBC Hgb Hct MCV MCH MCHC RDW Plt Count Seg Neutrophils % Lymphocytes % Monocytes % Eosinophils % Basophils % Absolute Neutrophils Absolute Lymphocytes Absolute Monocytes Absolute Eosinophils Absolute Basophils Carbonic Acid HCO3/H2CO3 Ratio ABG pH ABG pCO2 ABG pO2 ABG HCO3 ABG O2 Saturation ABG Base Excess VBG pH 7.33 VBG pCO2 56.2 VBG HCO3 28.8 VBG Base Excess 2.2 FiO2 Sodium Potassium Chloride Carbon Dioxide Anion Gap BUN Creatinine Est GFR ( Amer) Est GFR (Non-Af Amer) Glucose Lactic Acid 3.3 H 1.7 Calcium Magnesium 10/01/16 10/01/16 10/01/16 06:00 06:00 06:00 WBC 13.3 H RBC 3.98 Hgb 9.0 L Hct 29.2 L MCV 73 L MCH 22.7 L MCHC 30.9 L RDW 19.4 H Plt Count 357 Seg Neutrophils % 87.9 H Lymphocytes % 8.5 L Monocytes % 3.3 Eosinophils % 0.0 Basophils % 0.3 Absolute Neutrophils 11.7 H Absolute Lymphocytes 1.1 Absolute Monocytes 0.4 Absolute Eosinophils 0.0 Absolute Basophils 0.0 Carbonic Acid 1.58 H HCO3/H2CO3 Ratio 18:1 ABG pH 7.37 ABG pCO2 52.6 H ABG pO2 71.0 L ABG HCO3 29.8 H ABG O2 Saturation 93.6 L ABG Base Excess 3.8 VBG pH VBG pCO2 VBG HCO3 VBG Base Excess FiO2 50% Sodium 141.2 Potassium 4.7 Chloride 106 Carbon Dioxide 29 Anion Gap 6 BUN 8 Creatinine 0.42 L Est GFR ( Amer) > 60 Est GFR (Non-Af Amer) > 60 Glucose 184 H Lactic Acid Calcium 8.1 L Magnesium 2.4 H 09/29/16 15:00 Sputum Gram Stain - Final 09/29/16 15:00 Sputum Sputum Culture - Final 09/29/16 09/29/16 09/29/16 08:26 08:26 08:26 Creatine Kinase 1038 H CK-MB (CK-2) 4.43 Troponin I < 0.012 NT-Pro-B Natriuret Pep 715 H 09/29/16 09/29/16 09/29/16 14:25 14:25 14:25 Creatine Kinase 859 H CK-MB (CK-2) 3.71 Troponin I < 0.012 NT-Pro-B Natriuret Pep 942 H 09/29/16 09/29/16 09/30/16 20:15 20:15 06:02 Creatine Kinase 670 H 454 H CK-MB (CK-2) 2.97 Troponin I < 0.012 NT-Pro-B Natriuret Pep Labs- All tests 24 hr 09/30/16 09/30/16 09/30/16 12:04 15:46 20:00 WBC RBC Hgb Hct MCV MCH MCHC RDW Plt Count Seg Neutrophils % Lymphocytes % Monocytes % Eosinophils % Basophils % Absolute Neutrophils Absolute Lymphocytes Absolute Monocytes Absolute Eosinophils Absolute Basophils Carbonic Acid HCO3/H2CO3 Ratio ABG pH ABG pCO2 ABG pO2 ABG HCO3 ABG Total CO2 ABG O2 Saturation ABG Base Excess VBG pH VBG pCO2 VBG HCO3 VBG Base Excess FiO2 Sodium Potassium Chloride Carbon Dioxide Anion Gap BUN Creatinine Est GFR ( Amer) Est GFR (Non-Af Amer) Glucose POC Glucose 197 H 233 H Lactic Acid 3.3 H Calcium Magnesium Time Trough Drawn Vancomycin Trough 09/30/16 10/01/16 10/01/16 22:19 00:25 01:30 WBC RBC Hgb Hct MCV MCH MCHC RDW Plt Count Seg Neutrophils % Lymphocytes % Monocytes % Eosinophils % Basophils % Absolute Neutrophils Absolute Lymphocytes Absolute Monocytes Absolute Eosinophils Absolute Basophils Carbonic Acid HCO3/H2CO3 Ratio ABG pH ABG pCO2 ABG pO2 ABG HCO3 ABG Total CO2 ABG O2 Saturation ABG Base Excess VBG pH 7.33 VBG pCO2 56.2 VBG HCO3 28.8 VBG Base Excess 2.2 FiO2 Sodium Potassium Chloride Carbon Dioxide Anion Gap BUN Creatinine Est GFR ( Amer) Est GFR (Non-Af Amer) Glucose POC Glucose 251 H Lactic Acid 1.7 Calcium Magnesium Time Trough Drawn Vancomycin Trough 10/01/16 10/01/16 10/01/16 06:00 06:00 06:00 WBC 13.3 H RBC 3.98 Hgb 9.0 L Hct 29.2 L MCV 73 L MCH 22.7 L MCHC 30.9 L RDW 19.4 H Plt Count 357 Seg Neutrophils % 87.9 H Lymphocytes % 8.5 L Monocytes % 3.3 Eosinophils % 0.0 Basophils % 0.3 Absolute Neutrophils 11.7 H Absolute Lymphocytes 1.1 Absolute Monocytes 0.4 Absolute Eosinophils 0.0 Absolute Basophils 0.0 Carbonic Acid HCO3/H2CO3 Ratio ABG pH ABG pCO2 ABG pO2 ABG HCO3 ABG Total CO2 ABG O2 Saturation ABG Base Excess VBG pH VBG pCO2 VBG HCO3 VBG Base Excess FiO2 Sodium 141.2 Potassium 4.7 Chloride 106 Carbon Dioxide 29 Anion Gap 6 BUN 8 Creatinine 0.42 L Est GFR ( Amer) > 60 Est GFR (Non-Af Amer) > 60 Glucose 184 H POC Glucose Lactic Acid Calcium 8.1 L Magnesium 2.4 H Time Trough Drawn 0600 Vancomycin Trough 15.6 10/01/16 06:00 WBC RBC Hgb Hct MCV MCH MCHC RDW Plt Count Seg Neutrophils % Lymphocytes % Monocytes % Eosinophils % Basophils % Absolute Neutrophils Absolute Lymphocytes Absolute Monocytes Absolute Eosinophils Absolute Basophils Carbonic Acid 1.58 H HCO3/H2CO3 Ratio 18:1 ABG pH 7.37 ABG pCO2 52.6 H ABG pO2 71.0 L ABG HCO3 29.8 H ABG Total CO2 31.4 H ABG O2 Saturation 93.6 L ABG Base Excess 3.8 VBG pH VBG pCO2 VBG HCO3 VBG Base Excess FiO2 50% Sodium Potassium Chloride Carbon Dioxide Anion Gap BUN Creatinine Est GFR ( Amer) Est GFR (Non-Af Amer) Glucose POC Glucose Lactic Acid Calcium Magnesium Time Trough Drawn Vancomycin Trough Impressions: Chest X-Ray 09/30/16 00:00 IMPRESSION: Grossly appropriate tubes. Diffuse infiltrates persist. Chest/Abdomen CTA 09/30/16 00:00 IMPRESSION: No pulmonary emboli. Extensive parenchymal airspace disease most likely infectious. Plan Time Spent: Greater than 30 Minutes
--- NOTE | 2016-10-01 10:14 | Progress Note ---
Provider Note Provider Note: 09/30/16, : Late evening, I was contacted by patient's floor nurse, stating that patient seemed more anxious and more short of breath than usual. I went to patient's bedside shortly thereafter, with her floor nurse Tiny present. Patient appear to be in moderate respiratory distress, even with BiPAP on. Appeared to be quite fatigued. Overall, clinical picture of impending respiratory failure, even with patient awake and alert. Decision made to proceed with transfer to intensive care unit with plans for intubation by [employer] INST[employer]ER. Discussed in layperson's terms with patient. She agreed. She has been intubated twice before. During preparation for transfer to the intensive care unit, nursing staff did contact patient's daughter, and patient discussed plans with daughter by phone. Intubation accomplished without difficulty by [employer] INST[employer]. Despite propofol drip, and supplemental morphine, some difficulty encountered with properly ventilating the patient. At 11:15 PM, I discussed the patient by phone with Dr. Luis, on-call glove printer, who had been following the patient earlier in her hospital stay. He also discussed the patient by phone with respiratory therapy. He recommended proceeding with paralysis with rocuronium drip, which was accomplished. Central line placed by the on-call general surgeon. 65 minutes critical care time spent in evaluation management of patient, including direct patient evaluation, multiple discussions with nursing staff, chart review, entering of multiple orders into the electronic health record, telephone discussion with on-call glove printer, along with visualization of her post intubation chest x-ray with subsequent review of radiology interpretation. Patient discussed in detail with daytime hospitalist team morning of the third.
[2016-10-01] MEDS: LEVOFLOXACIN 750 MG/D5W RTU 150 ML IV SCH (10:39)
[2016-10-01] MEDS: ENOXAPARIN SODIUM INJ 40 MG/0.4 ML DISP.SYRIN SUBCUT SCH (10:39)
[2016-10-01] MEDS: CEFEPIME 2 GM/D5W RTU 50 ML IV SCH (11:26)
[2016-10-01 11:37] VITALS: BP 172/94
[2016-10-01] MEDS ORDERED: METHYLPREDNISOLONE INJ 125 MG/2 ML SDV IV SCH (14:00)
[2016-10-01] MEDS ORDERED: MONTELUKAST SODIUM 10 MG TABLET NG SCH (22:00)
== END 2016-10-01 11:12 | disposition short-term general hospital (02) | DRG 208 ==
LOC: ER 20:20 → EH 23:35 → UNDOADMIN 23:35 → EH 09-29 01:56 → 3N 09-29 03:09 → ICU 09-30 22:38
PROVIDERS: ADMIT Family Medicine; ATTEND Family Medicine
PROC: 5A1945Z Respiratory Ventilation, 24-96 Consecutive Hours (ICD-10-PCS; principal; 2016-09-29)
PROC: 0BH17EZ Insertion of Endotracheal Airway into Trachea, Via Natural or Artificial Opening (ICD-10-PCS; 2016-09-29)
PROC: B549ZZA Ultrasonography of Inferior Vena Cava, Guidance (ICD-10-PCS; 2016-09-30)
PROC: 06H033Z Insertion of Infusion Device into Inferior Vena Cava, Percutaneous Approach (ICD-10-PCS; 2016-09-30)
DX: J96.22 Acute and chronic respiratory failure with hypercapnia (principal); J18.9 Pneumonia, unspecified organism; M62.82 Rhabdomyolysis; J84.10 Pulmonary fibrosis, unspecified; J44.9 Chronic obstructive pulmonary disease, unspecified; J84.89 Other specified interstitial pulmonary diseases; G89.29 Other chronic pain; D64.9 Anemia, unspecified; Z79.899 Other long term (current) drug therapy; Z88.1 Allergy status to other antibiotic agents; Z90.49 Acquired absence of other specified parts of digestive tract; Z90.710 Acquired absence of both cervix and uterus
CPT/HCPCS: 31500; 36415; 36600; 71010; 71275; 80048; 80053; 80074; 80202; 81001; 82550; 82553; 82803; 82962; 83605; 83735; 83880; 84439; 84443; 84481; 84484; 84703; 85025; 87040; 87070; 87205; 93005; 93010; 94002; 94640; 94660; 96365; 96367; 96375; 99291; J0330; J0692; J1650; J1815; J1885; J1940; J1956; J2270; J2405; J2704; J2920; J2930; J3370; J3475; J3490; J7030; J7040; J7060; J7512; J7620

== ENCOUNTER → 2016-10-19 | Outpatient (CLI) | payer MEDICARE ==
--- NOTE | 2016-10-19 18:30 | RADIOLOGY REPORT (SQ) ---
EXAM DESCRIPTION: CHEST PA/LATERAL COMPLETED DATE/TIME: 10/19/2016 5:27 pm REASON FOR STUDY: PNEUMONIA, UNSPECIFIED ORGANISM COMPARISON: 09/30/2016 EXAM PARAMETERS: NUMBER OF VIEWS: two views TECHNIQUE: Digital Frontal and Lateral radiographic views of the chest acquired. RADIATION DOSE: NA LIMITATIONS: none FINDINGS: LUNGS AND PLEURA: Marked interval improvement of multifocal airspace disease with some res idual linear opacities involving the lower lungs likely represent subsegmental atelectasis or scarrin g. No new airspace disease, pleural effusion, or pneumothorax. MEDIASTINUM AND HILAR STRUCTURES: No masses or contour abnormalities. HEART AND VASCULAR STRUCTURES: Heart normal size. No evidence for failure. BONES: No acute findings. HARDWARE: None in the chest. OTHER: No other significant finding. IMPRESSION: MARKEDLY IMPROVED APPEARANCE THE CHEST ABOVE. TECHNICAL DOCUMENTATION: JOB ID: [id number] [employer]- All Rights Reserved
== END ==
LOC: OD 17:16
PROVIDERS: ATTEND Student in an Organized Health Care Education/Training Program
DX: J18.9 Pneumonia, unspecified organism (principal)
CPT/HCPCS: 71020

== ENCOUNTER 2017-02-07 16:59 | Inpatient (IN) | payer MEDICARE ==
[2017-02-07] MEDS ORDERED: ZOLPIDEM TARTRATE 5 MG TABLET PO PRN (17:35)
[2017-02-07] MEDS ORDERED: ONDANSETRON HCL INJ/PF 4 MG/2 ML SDV IV PRN (17:35)
[2017-02-07] MEDS ORDERED: IPRATROPIUM/ALBUTEROL 0.5-2.5 MG/3 ML AMPUL NEB PRN (17:35)
[2017-02-07] MEDS ORDERED: ACETAMINOPHEN 325 MG TABLET PO PRN (17:35)
[2017-02-07] MEDS ORDERED: OXYCODONE-ACETAMINOPHEN 5-325 MG TABLET PO PRN (17:35)
[2017-02-07] MEDS ORDERED: INFLUENZA ADLT QUAD (36MOS+) 2017-18 VAC 0.5 ML SYR IM PRN (18:02)
[2017-02-07] MEDS ORDERED: OXYCODONE HCL IR 5 MG TABLET PO PRN (18:08)
[2017-02-07] MEDS ORDERED: ALPRAZOLAM 0.5 MG TABLET PO PRN (18:09)
[2017-02-07] MEDS ORDERED: OXYCODONE HCL 15 MG PO PRN (18:34)
--- NOTE | 2017-02-07 18:35 | PDOC H&P ---
History of Present Illness Admission Date/PCP: 02/07/17 16:59 BEN KWON DO Patient complains of: Shortness of breath for the past 7-10 days History of Present Illness: CHUCKIE OSPINA is a 47 year old female presented to Dr. Luis's office for regular follow-up. Patient complained of having shortness of breath, sweatiness , chills, weakness and productive cough. Accordingly the sputum was brownish in color. Symptoms had been ongoing for the past 7-10 days. She uses 3 L of oxygen and denies having to increase oxygen to relieve shortness of breath. She has a history of a recent hospitalization where she required intubation at this facility and then transferred to [facility]. She remained under ventilatory support for 5 days. Patient quit smoking back in 2011. She carries a history of pulmonary fibrosis, COPD and Boop. Her father of pulmonary fibrosis. Patient notes admits sleeping with her 3 dogs. After being evaluated with Dr. Luis he called our service since in his opnion patient would benefit from being hospitalized. Past Medical History Cardiac Medical History: Reports: Hypertension, Pulmonary Embolism - Several years ago; blood thinner 6 months, stop by physician. 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 Denies: Lung Cancer GI Medical History: Denies: Cirrhosis, Gastroesophageal Reflux Disease, Hepatitis Musculoskeltal Medical History: Reports: Other - Chronic back pain Denies: Arthritis Psychiatric Medical History: Denies: Depression Infectious Medical History: Denies: Clostridium Difficile, Methicillin-Resistant Staph Aureus Past Surgical History Past Surgical History: Reports: Appendectomy - 1989, Cholecystectomy, Hysterectomy, Tonsillectomy - 1974 Denies: Pacemaker Social History Smoking Status: Former Smoker Frequency of Alcohol Use: None Hx Recreational Drug Use: No Drugs: None Hx Prescription Drug Abuse: No - Advance Directive Resuscitation Status: Full Code Family History Family History: Arthritis, COPD - Father, Malignancy - Pulmonary fibrosis, Other - Pulmonary hypertension in mother, Father with pulmonary fibrosis Parental Family History Reviewed: Yes Children Family History Reviewed: Yes Sibling(s) Family History Reviewed.: Yes Medication/Allergy Allergies/Adverse Reactions: piperacillin sodium [From Zosyn] Allergy (Unknown, Verified 09/29/16 01:52) Unknown reaction tazobactam sodium [From Zosyn] Allergy (Unknown, Verified 04/12/15 14:39) Unknown reaction Review of Systems Constitutional: PRESENT: chills, fatigue, weakness Eyes: ABSENT: visual disturbances Ears: ABSENT: hearing changes Cardiovascular: PRESENT: orthropnea. ABSENT: chest pain, edema, palpitations Respiratory: PRESENT: cough, dyspnea, sputum Gastrointestinal: ABSENT: abdominal pain, nausea, vomiting Genitourinary: ABSENT: dysuria, hematuria Neurological: ABSENT: focal weakness Physical Exam Vital Signs: Intake & Output 02/06/17 02/07/17 02/08/17 06:59 06:59 06:59 Weight 106.2 kg General appearance: PRESENT: cooperative, mild distress, obese Head exam: PRESENT: atraumatic, normocephalic Eye exam: PRESENT: EOMI, PERRLA Ear exam: PRESENT: normal external ear exam Mouth exam: PRESENT: moist, neck supple Neck exam: PRESENT: full ROM. ABSENT: JVD, lymphadenopathy, tenderness Respiratory exam: PRESENT: decreased breath sounds, tachypnea, wheezes Cardiovascular exam: PRESENT: RRR. ABSENT: diastolic murmur, systolic murmur Vascular exam: PRESENT: normal capillary refill GI/Abdominal exam: PRESENT: normal bowel sounds, soft. ABSENT: tenderness Extremities exam: ABSENT: joint swelling, pedal edema Musculoskeletal exam: PRESENT: full ROM Neurological exam: PRESENT: alert, oriented to person, oriented to place, oriented to time Psychiatric exam: PRESENT: appropriate affect, normal mood Assessment & Plan - Diagnosis (1) Chronic pain syndrome Is this a current diagnosis for this admission?: Yes Plan: We will continue outpatient regimen. Patient has been made aware that these medications can depress her respiratory status (2) COPD (chronic obstructive pulmonary disease) with acute bronchitis Is this a current diagnosis for this admission?: Yes Plan: Patient will be placed on schedule duo nebs and as needed, Daliresp, Pulmicort, IV steroids, Levaquin and Zyvox IV. Order chest x-ray and sputum culture (3) Opiate dependence, continuous Is this a current diagnosis for this admission?: Yes Plan: Patient does have a history of chronic back pain for which she is being treated with opioids as outpatient. Patient aware of mention of respiratory. (4) Pulmonary fibrosis Is this a current diagnosis for this admission?: Yes Plan: Oxygen supplementation and IV steroids. (5) Chronic respiratory failure Is this a current diagnosis for this admission?: Yes Plan: Continue with 3 L of O2 by nasal cannula (7) DVT prophylaxis Is this a current diagnosis for this admission?: Yes Plan: Patient will be placed on heparin subcu (8) Hyperglycemia, drug-induced Is this a current diagnosis for this admission?: Yes Plan: Patient will be placed on lispro sliding scale and bedside glucose before meals and at bedtime - Time Time Spent: 50 to 70 Minutes Medications reviewed and adjusted accordingly: Yes Anticipated discharge: Home Within: within 72 hours - Inpatient Certification Based on my medical assessment, after consideration of the patient's comorbidities, presenting symptoms, or acuity I expect that the services needed warrant INPATIENT care.: Yes I certify that my determination is in accordance with my understanding of Medicare's requirements for reasonable and necessary INPATIENT services [42 CFR 412.3e].: Yes Medical Necessity: Need for Nebulizer Therapy and Monitoring of Response, Need for IV Antibiotics
[2017-02-07 18:43] LABS: ABSOLUTE BASOPHILS # (AUTO) 0.1 10^3/uL (0.0-0.2); ABSOLUTE EOSINOPHILS # (AUTO) 0.2 10^3/uL (0.0-0.6); ABSOLUTE LYMPHOCYTES (AUTO) 4.2 10^3/uL (0.5-4.7); ABSOLUTE NEUT (AUTO) 8.6 10^3/uL (1.7-8.2); BASOPHILS % (AUTO) 0.5 % (0-2); EOSINOPHILS % (AUTO) 1.7 % (0-6); HEMATOCRIT 35.1 % (36.0-47.0); HEMOGLOBIN 11.1 g/dL (12.0-15.5); HGB HCT DIFFERENCE -1.8; LYMPHOCYTES % (AUTO) 29.8 % (13-45); MEAN CORPUSCULAR HEMOGLOBIN 21.6 pg (27.0-33.4); MEAN CORPUSCULAR HGB CONC 31.6 g/dL (32.0-36.0); MEAN CORPUSCULAR VOLUME 68 fl (80-97); MONOCYTES % (AUTO) 7.2 % (3-13); RED BLOOD COUNT 5.14 10^6/uL (3.72-5.28); RED CELL DISTRIBUTION WIDTH 20.5 % (11.5-14.0); SEGMENTED NEUTROPHILS % (AUTO) 60.8 % (42-78); WHITE BLOOD COUNT 14.2 10^3/uL (4.0-10.5)
[2017-02-07] MEDS ORDERED: LEVOFLOXACIN 750 MG/D5W RTU 750 MG/150 ML RTUPB IV ONE (19:00)
[2017-02-07 19:04] LABS: ALANINE AMINOTRANSFERASE 47 U/L (9-52); ALBUMIN 3.8 g/dL (3.5-5.0); ALKALINE PHOSPHATASE 120 U/L (38-126); ANION GAP 12 (5-19); ASPARTATE AMINO TRANSFERASE 18 U/L (14-36); BILIRUBIN,DIRECT 0.2 mg/dL (0.0-0.4); BILIRUBIN,TOTAL 0.2 mg/dL (0.2-1.3); BLOOD UREA NITROGEN 10 mg/dL (7-20); CALCIUM 9.5 mg/dL (8.4-10.2); CARBON DIOXIDE 26 mmol/L (22-30); CHLORIDE 102 mmol/L (98-107); CREATININE RESULT 0.59 mg/dL (0.52-1.25); GLUCOSE 114 mg/dL (75-110); MAGNESIUM 1.8 mg/dL (1.6-2.3); POTASSIUM 4.2 mmol/L (3.6-5.0); TOTAL PROTEIN 6.3 g/dL (6.3-8.2)
--- NOTE | 2017-02-07 19:18 | RADIOLOGY REPORT (SQ) ---
EXAM DESCRIPTION: CHEST PA/LAT COMPLETED DATE/TIME: 02/07/2017 7:09 pm REASON FOR STUDY: shortness of breath COMPARISON: 04/03/2016 EXAM PARAMETERS: NUMBER OF VIEWS: two views TECHNIQUE: Digital Frontal and Lateral radiographic views of the chest acquired. RADIATION DOSE: NA LIMITATIONS: none FINDINGS: LUNGS AND PLEURA: No new opacities, masses or pneumothorax. No pleural effusion. MEDIASTINUM AND HILAR STRUCTURES: No masses or contour abnormalities. HEART AND VASCULAR STRUCTURES: Heart stable in size. No evidence for failure. BONES: No acute findings. HARDWARE: None in the chest. OTHER: No other significant finding. IMPRESSION: NO ACUTE CARDIOPULMONARY PROCESS. NO SIGNIFICANT CHANGE FROM PRIOR STUDY. TECHNICAL DOCUMENTATION: JOB ID: [id number] 2054 [employer]- All Rights Reserved
[2017-02-07] MEDS: BUDESONIDE NEB 0.5 MG/2 ML AMPUL NEB SCH (19:43)
[2017-02-07] MEDS: ALBUTEROL SULFATE 0.083% NEB 2.5 MG/3 ML AMPUL NEB SCH (19:43)
[2017-02-07] MEDS: OXYCODONE HCL IR 5 MG TABLET PO PRN (19:47)
[2017-02-07 19:50] LABS: ARTERIAL BLOOD BASE EXCESS 4.4 mmol/L; ARTERIAL BLOOD O2 SATURATION 96.8 % (94-98)
[2017-02-07] MEDS ORDERED: MONTELUKAST SODIUM 10 MG TABLET PO SCH (22:00)
[2017-02-07] MEDS ORDERED: GUAIFENESIN 600 MG TABLET.SA PO SCH (22:00)
[2017-02-07] MEDS ORDERED: OXYCODONE HCL SR 10 MG TABLET PO SCH (22:00)
[2017-02-07] MEDS ORDERED: LINEZOLID 300 ML IV SCH (22:00)
[2017-02-07] MEDS ORDERED: LIDOCAINE 0.5% INJ-PF (5 MG/ML) 50 ML SDV ONE (22:15)
--- NOTE | 2017-02-07 22:25 | PDOC PROGRESS REPORT ---
Subjective Progress Note for:: 02/07/17 Subjective:: Asked to evaluate for IV access. Patient with COPD exacerbation with history of pulmonary embolism in the past needing IV access. Nursing staff unable to main obtain peripheral IV access. Physical Exam Vital Signs: Temp Pulse Resp BP Pulse Ox 98.2 F 95 19 144/90 H 97 02/07/17 20:00 02/07/17 20:00 02/07/17 20:00 02/07/17 20:00 02/07/17 20:00 Intake & Output 02/06/17 02/07/17 02/08/17 06:59 06:59 06:59 Weight 106.2 kg Neck exam: PRESENT: other - Right external jugular vein clearly visible. Results Laboratory Results: 02/07/17 18:00 02/07/17 18:00 02/07/17 02/07/17 02/07/17 18:00 18:00 18:00 WBC 14.2 H RBC 5.14 Hgb 11.1 L Hct 35.1 L MCV 68 L MCH 21.6 L MCHC 31.6 L RDW 20.5 H Plt Count 387 Seg Neutrophils % 60.8 Lymphocytes % 29.8 Monocytes % 7.2 Eosinophils % 1.7 Basophils % 0.5 Absolute Neutrophils 8.6 H Absolute Lymphocytes 4.2 Absolute Monocytes 1.0 Absolute Eosinophils 0.2 Absolute Basophils 0.1 Carbonic Acid HCO3/H2CO3 Ratio ABG pH ABG pCO2 ABG pO2 ABG HCO3 ABG O2 Saturation ABG Base Excess FiO2 Sodium 140.0 Potassium 4.2 Chloride 102 Carbon Dioxide 26 Anion Gap 12 BUN 10 Creatinine 0.59 Est GFR ( Amer) > 60 Est GFR (Non-Af Amer) > 60 Glucose 114 H Calcium 9.5 Magnesium 1.8 Total Bilirubin 0.2 AST 18 ALT 47 Alkaline Phosphatase 120 Total Protein 6.3 Albumin 3.8 TSH 2.03 02/07/17 19:30 WBC RBC Hgb Hct MCV MCH MCHC RDW Plt Count Seg Neutrophils % Lymphocytes % Monocytes % Eosinophils % Basophils % Absolute Neutrophils Absolute Lymphocytes Absolute Monocytes Absolute Eosinophils Absolute Basophils Carbonic Acid 1.29 HCO3/H2CO3 Ratio 22:1 ABG pH 7.45 ABG pCO2 42.8 ABG pO2 85.4 ABG HCO3 28.9 H ABG O2 Saturation 96.8 ABG Base Excess 4.4 FiO2 2L Sodium Potassium Chloride Carbon Dioxide Anion Gap BUN Creatinine Est GFR ( Amer) Est GFR (Non-Af Amer) Glucose Calcium Magnesium Total Bilirubin AST ALT Alkaline Phosphatase Total Protein Albumin TSH 02/07/17 18:00 NT-Pro-B Natriuret Pep 43 Impressions: Chest X-Ray 02/07/17 00:00 IMPRESSION: NO ACUTE CARDIOPULMONARY PROCESS. NO SIGNIFICANT CHANGE FROM PRIOR STUDY. Assessment & Plan - Diagnosis (1) Need for intravenous access Is this a current diagnosis for this admission?: Yes Plan: Rather than risk lung injury with central line, the right external jugular vein was cannulated with a 20-gauge IV without difficulty it withdrew blood and flushed easily. It was secured in place. Patient tolerated procedure well with no apparent complications.
[2017-02-07] MEDS: HEPARIN SOD (PORCINE) 5,000 UNIT/ML 1 ML SYRINGE SUBCUT SCH (22:39)
[2017-02-07] MEDS: METHYLPREDNISOLONE INJ 40 MG/1 ML SDV IV SCH (22:50)
[2017-02-08] MEDS: HEPARIN SOD (PORCINE) 5,000 UNIT/ML 1 ML SYRINGE SUBCUT SCH (05:43)
[2017-02-08] MEDS: METHYLPREDNISOLONE INJ 40 MG/1 ML SDV IV SCH (05:43)
[2017-02-08] MEDS: OXYCODONE HCL IR 5 MG TABLET PO PRN (05:46)
[2017-02-08] MEDS: ALBUTEROL SULFATE 0.083% NEB 2.5 MG/3 ML AMPUL NEB SCH (07:52)
[2017-02-08] MEDS: BUDESONIDE NEB 0.5 MG/2 ML AMPUL NEB SCH (07:52)
[2017-02-08 08:12] VITALS: BP 121/81
[2017-02-08] MEDS ORDERED: DULOXETINE HCL 30 MG CAPSULE.DR PO SCH (10:00)
[2017-02-08] MEDS ORDERED: ROFLUMILAST 500 MCG TABLET PO SCH (10:00)
[2017-02-08] MEDS ORDERED: DOCUSATE SODIUM 100 MG CAPSULE PO SCH (10:00)
--- NOTE | 2017-02-08 13:43 | Progress Note ---
Provider Note Provider Note: Patient opted to leave AGAINST MEDICAL ADVICE in less than 24 hours of being admitted. Patient was not seen by author. Please use H&P if deemed appropriate.
[2017-02-08] MEDS ORDERED: LEVOFLOXACIN 750 MG/D5W RTU 750 MG/150 ML RTUPB IV SCH (18:00)
--- NOTE | 2017-02-12 13:46 | Physician Advisory Note ---
Physician Advisor ProgressNote .: Pursuant to the plan for [facility], I have reviewed the medical record for this patient. Physician Advisor Statement: Status review: 47yo Medicare pt with COPD, pulmonary fibrosis, BOOP, chronic hypoxemic resp failure requiring 3L O2, IgG immunodeficiency, PE in past, HTN, chronic opioid dependency, morbid obesity with BMI 44.1, and recent admission requiring intubation/vent support x 5 days w/transfer to tertiary hospital - presented from piping supervisor's office due to his concern that she needed hospital admission. - (+)SOB w/productive cough, orthopnea, sweats & chills, x 7-10days. - Had tachycardia 102, then 90s persistently all that first PM. (+) "distress ", tachypnea, wheezes, decreased breath sounds on H&P. WBC 14.2, Hgb 11.1. - Attending ordered IV LEvaquin & Zyvox, IV Solumedrol, Pulmicort, Daliresp, nebs, CXR, sputum cx, BC, surgical consult for central line. - Nursing notes indicate pt w/persistent PAULSON, having cough with brown sputum and 02/08. On 02/08 at 07:24, she still had instpiratory and expiratory wheezes, PAULSON, cough intermittent & productive of thick brown sputum. This patient had multiple severe & concerning chronic co-morbidities that increase her risk substantially for further pulmonary decompensation when developing any clinical worsening of her already-poor pulmonary status. She had recently had acute respiratory failure requiring ventilator support. She is not just a routine acute bronchitis that could be managed outpatient or as Obs. This is not a patient that would be expected to have any significant chance of being considered clinically stable for d/c after 1 MN, and was still rather symptomatic after the 1st MN. The attending would certainly have expected her to stay at least 2 MNs. For unknown reasons, this patient left AMA after 1MN of hospital care. this is a [facility]-specified exception to the 2MN Rule, as the attending could not have expected her to leave AMA the next day when admitting her on 02/07. Appropraite for Inpatient status. CK
== END 2017-02-08 08:30 | disposition left against medical advice (07) | DRG 191 ==
LOC: 5 16:59
PROVIDERS: ADMIT Family Medicine; ATTEND Family Medicine
DX: J44.0 Chronic obstructive pulmonary disease with (acute) lower respiratory infection (principal); F11.20 Opioid dependence, uncomplicated; J96.10 Chronic respiratory failure, unspecified whether with hypoxia or hypercapnia; Z68.41 Body mass index [BMI] 40.0-44.9, adult; J44.1 Chronic obstructive pulmonary disease with (acute) exacerbation; R73.9 Hyperglycemia, unspecified; J84.10 Pulmonary fibrosis, unspecified; J20.9 Acute bronchitis, unspecified; I10 Essential (primary) hypertension; J45.998 Other asthma; G89.4 Chronic pain syndrome; E66.01 Morbid (severe) obesity due to excess calories; Z99.81 Dependence on supplemental oxygen; Z87.891 Personal history of nicotine dependence
CPT/HCPCS: 36415; 71020; 80053; 82803; 83735; 83880; 84443; 85025; 87070; 87205; 94640; J1644; J1956; J2020; J2920

== ENCOUNTER → 2018-02-14 | Outpatient (CLI) | payer MEDICARE ==
--- NOTE | 2018-02-14 11:51 | RADIOLOGY REPORT (SQ) ---
EXAM DESCRIPTION: CT ABD/PELVIS COMBO COMPLETED DATE/TIME: 02/14/2018 11:13 am REASON FOR STUDY: HEMATURIA (R31.9), LUQ ABD TENDERNESS R31.9 HEMATURIA, UNSPECIFIED COMPARISON: CT chest 01/17/2016, 09/30/2016 CT abdomen pelvis 04/19/2016 TECHNIQUE: CT scan of the abdomen and pelvis performed with and without intravenous contrast, and wi thout oral contrast. Contrasted imaging performed helical scanning technique and dynamic intravenous contrast injection. Images reviewed with lung, soft tissue, and bone windows. Reconstructed coronal a nd sagittal MPR images reviewed. Delayed images for evaluation of the urinary system also acquired. A ll images stored on PACS. All CT scanners at this facility use dose modulation, iterative reconstruction, and/or weight based d osing when appropriate to reduce radiation dose to as low as reasonably achievable (ALARA). [facility]: Dose Right [facility]: CareDose [facility]: Dose Right [facility]: Teradose 4D [facility]: Listiki CONTRAST TYPE AND DOSE: contrast/concentration: Isovue 350.00 mg/ml; Total Contrast Delivered: 100.0 ml; Total Saline Delivered: 72.0 ml RENAL FUNCTION: GFR > 60. RADIATION DOSE: CT Rad equipment meets quality standard of care and radiation dose reduction techniq ues were employed. CTDIvol: 22.0 - 25.3 mGy. DLP: 4039 mGy-cm. . LIMITATIONS: None. FINDINGS: NON-CONTRASTED IMAGING: No significant renal or bladder calcifications. No other significa nt organ calcifications. POST-CONTRASTED IMAGING: LOWER CHEST: Hiatal hernia. Bilateral breast implants. Lung bases are clear LIVER: Normal size. No masses. No dilated ducts. Diffuse low attenuation from fatty infiltration SPLEEN: Normal size. No focal lesions. PANCREAS: No masses. No significant calcifications. No adjacent inflammation or peripancreatic fluid collections. Pancreatic duct not dilated. GALLBLADDER: Post cholecystectomy ADRENAL GLANDS: No significant masses or asymmetry. RIGHT KIDNEY AND URETER: No solid masses. No significant calcifications. No hydronephrosis or hyd roureter. LEFT KIDNEY AND URETER: No solid masses. No significant calcifications. No hydronephrosis or hydr oureter. AORTA AND VESSELS: No aneurysm. No dissection. Renal arteries, SMA, celiac without stenosis. RETROPERITONEUM: No retroperitoneal adenopathy, hemorrhage or masses. BOWEL AND PERITONEAL CAVITY: No oral contrast. No CT evidence of bowel obstruction or free intraperi toneal air or fluid. APPENDIX: Not identified. No right lower quadrant inflammatory change PELVIS: No mass. No free fluid. Normal bladder. Post total hysterectomy ABDOMINAL WALL: No masses. No hernias. BONES: No significant or acute findings. OTHER: No other significant finding. IMPRESSION: No CT findings to explain history of hematuria Fatty liver, post cholecystectomy, post hysterectomy TECHNICAL DOCUMENTATION: JOB ID: [id number] Quality ID # [id number]: Final reports with documentation of one or more dose reduction techniques (e.g., Au tomated exposure control, adjustment of the mA and/or kV according to patient size, use of iterative reconstruction technique) 2010 [employer]- All Rights Reserved Reading location - IP/workstation name: [email or web address]
== END ==
LOC: RAD 10:20
PROVIDERS: ATTEND Student in an Organized Health Care Education/Training Program
DX: R10.812 Left upper quadrant abdominal tenderness (principal); R31.9 Hematuria, unspecified
CPT/HCPCS: 74178; 82565

== ENCOUNTER 2020-01-26 12:44 | Inpatient (IN) | payer MEDICARE ==
[2020-01-26 13:18] LABS: ABSOLUTE BASOPHILS # (AUTO) 0.1 10^3/uL (0.0-0.2); ABSOLUTE EOSINOPHILS # (AUTO) 0.2 10^3/uL (0.0-0.6); ABSOLUTE LYMPHOCYTES (AUTO) 3.3 10^3/uL (0.5-4.7); ABSOLUTE MONOCYTES (AUTO) 0.6 10^3/uL (0.1-1.4); ABSOLUTE NEUT (AUTO) 8.7 10^3/uL (1.7-8.2); BASOPHILS % (AUTO) 0.7 % (0-2); EOSINOPHILS % (AUTO) 1.2 % (0-6); HEMATOCRIT 45.3 % (36.0-47.0); HEMOGLOBIN 15.3 g/dL (12.0-15.5); MEAN CORPUSCULAR HEMOGLOBIN 27.8 pg (27.0-33.4); MEAN CORPUSCULAR HGB CONC 33.8 g/dL (32.0-36.0); MEAN CORPUSCULAR VOLUME 82 fl (80-97); MONOCYTES % (AUTO) 4.7 % (3-13); PLATELET COUNT 332 10^3/uL (150-450); RED CELL DISTRIBUTION WIDTH 14.3 % (11.5-14.0); SEGMENTED NEUTROPHILS % (AUTO) 67.4 % (42-78); TOTAL CELLS COUNTED % (AUTO) 100 %; WHITE BLOOD COUNT 12.9 10^3/uL (4.0-10.5)
[2020-01-26] MEDS ORDERED: MORPHINE SULFATE 10 MG/ML INJ IV ONE (13:22)
--- NOTE | 2020-01-26 13:23 | ER Document Report ---
ED Respiratory Problem - General Chief Complaint: Shortness Of Breath Stated Complaint: CHEST PAIN Time Seen by Provider: 01/26/20 13:06 Primary Care Provider: BEN KWON DO [NO LOCAL MD] - Follow up as needed Information source: Patient Notes: 49-year-old female arrives from [facility] where she was thought to have disc injection because of herniated disc and was found to have tachycardia and hypertension and shortness of breath and therefore was sent here to the ER. Patient reports she has been coughing up bloody phlegm for the last 4 days and for the last several months has been having bloody urine. Patient now has low back pain and is status post bilateral SRN low back injections ablations of her hernia. Patient does use 4 L continuously at home. Patient is on 4 L here. Patient reports she was on the lung transplant list for at least 2 years after she had fibrosis of lung diagnosed around 8 years ago after a chest tube was placed. Patient reports she was placed on 80 mg of prednisone for 15 months and went from 92 pounds to her current weight. Patient does not want to have any intubation because of her last experience with this she was awake with a tube in her throat. She thinks her daughter is POA and she is DNR at this time. She is talkative full sentences without any shortness of breath and with 90% oxygen saturation with rapid heart rate and 168/110 blood pressure. 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 IN LAST 30 DAYS: No - Related Data Allergies/Adverse Reactions: piperacillin sodium [From Zosyn] Allergy (Unknown, Verified 09/29/16 01:52) Unknown reaction tazobactam sodium [From Zosyn] Allergy (Unknown, Verified 04/12/15 14:39) Unknown reaction dexmedetomidine [From Precedex] Allergy (Verified 01/26/20 13:21) vancomycin Allergy (Verified 01/26/20 13:21) Past Medical History - General Information source: Patient - Social History Smoking Status: Former Smoker Cigarette use (# per day): No Chew tobacco use (# tins/day): No Smoking Education Provided: No Frequency of alcohol use: None Drug Abuse: None Lives with: Family Family History: Arthritis, COPD - Father, Malignancy - Pulmonary fibrosis, Other - Pulmonary hypertension in mother, Father with pulmonary fibrosis Patient has suicidal ideation: No Patient has homicidal ideation: No - Past Medical History Cardiac Medical History: Reports: Hx Hypertension, Hx Pulmonary Embolism - Sev eral years ago; blood thinner 6 months, stop by physician. Pulmonary Medical History: Reports: Hx Asthma, Hx Bronchitis, Hx COPD, Hx Intubation, Hx Respiratory Failure Denies: Hx Pneumonia, Hx Sleep Apnea, Hx Tuberculosis Neurological Medical History: Denies: Hx Seizures Endocrine Medical History: Denies: Hx Diabetes Mellitus Type 1, Hx Diabetes Mellitus Type 2, Hx Hyperthyroidism, Hx Hypothyroidism Malignancy Medical History: Denies: Hx Lung Cancer GI Medical History: Denies: Hx Cirrhosis, Hx Gastroesophageal Reflux Disease, Hx Hepatitis Musculoskeletal Medical History: Denies Hx Arthritis Psychiatric Medical History: Denies: Hx Depression Infectious Medical History: Denies: Hx C-Diff, Hx Hepatitis, Hx MRSA Past Surgical History: Reports: Hx Appendectomy - 1989, Hx Breast Surgery - Tumors removed on L breast, Hx Cholecystectomy, Hx Hysterectomy, Hx Tonsillec chad - 1974. Denies: Hx Pacemaker - Immunizations Hx Diphtheria, Pertussis, Tetanus Vaccination: Yes Review of Systems - Review of Systems Constitutional: See HPI, Weakness EENT: No symptoms reported Cardiovascular: No symptoms reported Respiratory: See HPI, Cough, Short of breath Gastrointestinal: No symptoms reported Genitourinary: No symptoms reported Female Genitourinary: No symptoms reported Musculoskeletal: No symptoms reported Skin: No symptoms reported Hematologic/Lymphatic: No symptoms reported Neurological/Psychological: No symptoms reported Physical Exam - Vital signs Vitals: Resp Pulse Ox 15 97 01/26/20 12:51 01/26/20 12:51 Interpretation: Normal, Hypertensive, Tachycardic - General General appearance: Appears well, Alert - HEENT Head: Normocephalic, Atraumatic Eyes: Normal Pupils: PERRL - Respiratory Respiratory status: No respiratory distress Chest status: Nontender Breath sounds: Normal Chest palpation: Normal - Cardiovascular Rhythm: Tachycardia Heart sounds: Normal auscultation Murmur: No - Abdominal Inspection: Normal Distension: No distension Bowel sounds: Normal Tenderness: Nontender Organomegaly: No organomegaly - Rectal Hemorrhoids: Other - Deferred - Genitourinary Bimanuel exam: Other - Deferred - Back Back: Tender - LS area - Extremities General upper extremity: Normal inspection, Nontender, Normal color, Normal ROM, Normal temperature General lower extremity: Normal inspection, Nontender, Normal color, Normal ROM, Normal temperature, Normal weight bearing. No: Dilma's sign - Neurological Neuro grossly intact: Yes Cognition: Normal Orientation: AAOx4 Mobile Coma Scale Eye Opening: Spontaneous Shad Coma Scale Verbal: Oriented Mobile Coma Scale Motor: Obeys Commands Shad Coma Scale Total: 15 Speech: Normal Motor strength normal: LUE, RUE, LLE, RLE Sensory: Normal - Psychological Associated symptoms: Normal affect, Normal mood - Skin Skin Temperature: Warm Skin Moisture: Dry Skin Color: Normal Course - Vital Signs Vital signs: Temp Pulse Resp BP Pulse Ox 28 H 138/76 H 97 01/26/20 15:02 01/26/20 14:01 01/26/20 15:02 - Laboratory Result Diagrams: 01/26/20 12:58 01/26/20 12:58 Laboratory results interpreted by me: 01/26/20 01/26/20 01/26/20 12:58 12:58 14:52 WBC 12.9 H RBC 5.50 H RDW 14.3 H Absolute Neuts (auto) 8.7 H Sodium 130.2 L Chloride 94 L BUN 4 L Creatinine 0.38 L Glucose 355 H POC Glucose Alkaline Phosphatase 164 H Urine Protein 30 H Urine Glucose (UA) >=500 H Urine Blood MODERATE H Ur Leukocyte Esterase SMALL H 01/26/20 16:19 WBC RBC RDW Absolute Neuts (auto) Sodium Chloride BUN Creatinine Glucose POC Glucose 207 H Alkaline Phosphatase Urine Protein Urine Glucose (UA) Urine Blood Ur Leukocyte Esterase Critical Care Note - Critical Care Note Comments: I spoke with Dr. Ryland Mathias at around 1645 and he will see the patient for admission. Discharge - Discharge Clinical Impression: COPD (chronic obstructive pulmonary disease) with acute bronchitis, Opiate d ependence, continuous, Bronchiolitis obliterans Back pain Qualifiers: Back pain location: low back pain Chronicity: acute Back pain laterality: bilateral Sciatica presence: without sciatica Qualified Code(s): M54.5 - Low back pain Condition: Stable Disposition: ADMITTED INPATIENT Referrals: BEN KWON DO [NO LOCAL MD] - Follow up as needed
[2020-01-26] MEDS ORDERED: ONDANSETRON HCL INJ/PF 4 MG/2 ML SDV IV ONE (13:25)
[2020-01-26 13:45] LABS: ALBUMIN 3.9 g/dL (3.5-5.0); ALKALINE PHOSPHATASE 164 U/L (38-126); ANION GAP 12 (5-19); ASPARTATE AMINO TRANSFERASE 22 U/L (14-36); BILIRUBIN,DIRECT 0.2 mg/dL (0.0-0.4); BILIRUBIN,TOTAL 0.5 mg/dL (0.2-1.3); BLOOD UREA NITROGEN 4 mg/dL (7-20); CALCIUM 9.7 mg/dL (8.4-10.2); CARBON DIOXIDE 24 mmol/L (22-30); CHLORIDE 94 mmol/L (98-107); CREATINE KINASE 117 U/L (30-135); GLUCOSE 355 mg/dL (75-110); POTASSIUM 4.4 mmol/L (3.6-5.0); TOTAL PROTEIN 6.8 g/dL (6.3-8.2)
--- NOTE | 2020-01-26 13:51 | RADIOLOGY REPORT (SQ) ---
EXAM DESCRIPTION: CHEST SINGLE VIEW IMAGES COMPLETED DATE/TIME: 01/26/2020 1:22 pm REASON FOR STUDY: shortness of breath COMPARISON: 02/07/[address] 09/30/2016 EXAM PARAMETERS: NUMBER OF VIEWS: One view. TECHNIQUE: Single frontal radiographic view of the chest acquired. RADIATION DOSE: NA LIMITATIONS: None. FINDINGS: LUNGS AND PLEURA: Faintly radiopaque chu at the right lung base. Bibasilar bandlike scarring is present. No acute infiltrates. No pleural effusion. No pneumothorax. MEDIASTINUM AND HILAR STRUCTURES: No masses. Contour normal. HEART AND VASCULAR STRUCTURES: Heart normal in size. Normal vasculature. BONES: Old healed bilateral posterior rib fractures HARDWARE: None in the chest. OTHER: No other significant finding. IMPRESSION: No acute findings TECHNICAL DOCUMENTATION: JOB ID: [id number] [employer]- All Rights Reserved Reading location - IP/workstation name: [email or web address]
[2020-01-26 13:53] LABS: CREATINE KINASE MB 2.12 ng/mL (<4.55)
[2020-01-26 13:56] LABS: TROPONIN I < 0.012 ng/mL
[2020-01-26] MEDS ORDERED: HYDROMORPHONE HCL INJ/PF 2 MG/ML AMPULE IV ONE ×2 (14:14→16:47)
[2020-01-26] MEDS ORDERED: DILTIAZEM HCL INJ 25 MG/5 ML VIAL IV ONE (14:15)
[2020-01-26] MEDS ORDERED: INSULIN REG, HUMAN 100 UNIT/ML 3 ML VIAL (PYX) IV ONE (14:16)
[2020-01-26] MEDS ORDERED: LEVOFLOXACIN 750 MG/D5W RTU 750 MG/150 ML RTUPB IV ONE (14:22)
[2020-01-26 15:39] LABS: APPEARANCE,URINE SLIGHTLY-CLOUDY; BILIRUBIN,URINE NEGATIVE (NEGATIVE); COLOR,URINE YELLOW; GLUCOSE, URINE >=500 mg/dL (NEGATIVE); KETONES,URINE NEGATIVE (NEGATIVE); LEUKOCYTE ESTERASE,URINE SMALL (NEGATIVE); NITRITE,URINE NEGATIVE (NEGATIVE); PROTEIN,URINE 30 mg/dL (NEGATIVE); URINE SPECIFIC GRAVITY 1.033; UROBILINOGEN,URINE NEGATIVE mg/dL (<2.0)
[2020-01-26] MEDS ORDERED: IPRATROPIUM/ALBUTEROL 0.5-2.5 MG/3 ML AMPUL NEB ONE (16:47)
--- NOTE | 2020-01-26 18:14 | EKG REPORT ---
SEVERITY:- DEFECTIVE ECG - SINUS TACHYCARDIA LEFT VENTRICULAR HYPERTROPHY CONSIDER ANTERIOR INFARCT LEAD V2, V3 PLACEMENT ERROR. : Confirmed by: Amilcar Cotto MD 26-Jan-2020 18:13:53
[2020-01-26] MEDS ORDERED: ONDANSETRON HCL INJ/PF 4 MG/2 ML SDV IV PRN (18:50)
[2020-01-26] MEDS ORDERED: ACETAMINOPHEN 325 MG TABLET PO PRN (18:50)
[2020-01-26] MEDS ORDERED: ONDANSETRON 4 MG TAB.RAPDIS PO PRN (18:50)
[2020-01-26] MEDS ORDERED: CYCLOBENZAPRINE HCL 10 MG TABLET PO PRN (18:55)
[2020-01-26] MEDS ORDERED: PROMETHAZINE HCL 25 MG TABLET PO PRN (18:55)
--- NOTE | 2020-01-26 19:07 | PDOC H&P ---
History of Present Illness Admission Date/PCP: PETAR EDMONDS MD History of Present Illness: CHUCKIE OSPINA is a 49 year old female with past medical history significant for COPD, T2DM uncontrolled, CHF, AR, narcotics dependency, pulmonary fibrosis, bronchiolitis obliterans, chronic pain syndrome who presents from her pain management clinic after she was undergoing a nerve ablation procedure which she has had multiple times in the past however this time patient experienced severe pain afterwards and had trouble breathing and began wheezing. Patient denies any sick contacts or recent fevers. She states she has frequent chills which have been going on for years. She has frequent chest pain as well but does not relate this to any exertion and it does not radiate anywhere. Troponin negative x2 on admission. Patient does have a history of AR but states she has no stents or bypass or pacemaker. She states she was on hospice for 1 year and then was taken off of it because she stabilized. Patient was followed by Dr. Luis prior to going on hospice and I have consulted his service with Dr. Mcgregor now. Started patient on empiric azithromycin as well as prednisone for likely COPD versus fibrosis flare. Patient's home narcotics were continued with some low- dose IV Ativan for breakthrough pain only. Patient request to be DNR/DNI. Past Medical History Cardiac Medical History: Reports: Congestive Heart Failure, Coronary Artery Disease, Myocardial Infarction, Hypertension, Pulmonary Embolism - Several years ago; blood thinner 6 months, stop by physician. Pulmonary Medical History: Reports: Asthma, Bronchitis, Chronic Obstructive Pulmonary Disease (COPD), Intubation, Respiratory Failure, Other - Pulmonary fibrosis of bronchiolitis obliterans Denies: Pneumonia, Sleep Apnea, Tuberculosis Neurological Medical History: Denies: Seizures Endocrine Medical History: Denies: Diabetes Mellitus Type 1, Diabetes Mellitus Type 2, Hyperthyroidism, Hypothyroidism Malignancy Medical History: Denies: Lung Cancer GI Medical History: Denies: Cirrhosis, Gastroesophageal Reflux Disease, Hepatitis Musculoskeltal Medical History: Denies: Arthritis Psychiatric Medical History: Denies: Depression Infectious Medical History: Denies: Clostridium Difficile, Methicillin-Resistant Staph Aureus Past Surgical History Past Surgical History: Reports: Appendectomy - 1989, Cholecystectomy, Hysterectomy, Tonsillectomy - 1974 Denies: Pacemaker Social History Information Source: Patient, Emergency Med Personnel Lives with: Family Smoking Status: Former Smoker Frequency of Alcohol Use: None Hx Recreational Drug Use: No Drugs: None Hx Prescription Drug Abuse: No - Advance Directive Resuscitation Status: Do Not Resuscitate Surrogate healthcare decision maker:: Admitting diagnosis: Pulmonary fibrosis and COPD exacerbation All aspects of code status discussed with patient/POA including cardioversion, chest compressions, and intubation and the patient/POA indicated they wish to be DNR/DNI MPOA is designated as: Chanelle Gomez Time spent: Greater than 16 minutes Family History Family History: Arthritis, COPD - Father, Malignancy - Pulmonary fibrosis, Other - Pulmonary hypertension in mother, Father with pulmonary fibrosis Parental Family History Reviewed: Yes Children Family History Reviewed: Yes Sibling(s) Family History Reviewed.: Yes Medication/Allergy Home Medications: Cyclobenzaprine HCl [Flexeril 10 mg Tablet] 10 mg PO HSP PRN 01/26/20 Duloxetine HCl [Cymbalta] 60 mg PO DAILY 01/26/20 Fentanyl [Duragesic 25 mcg/hr Transdermal Patch] 25 mcg TOP Q3DAYS 01/26/20 Insulin Glargine,Hum.rec.anlog [Lantus Insulin 100 Unit/1 ml 10 ml] 60 units SQ QHS 01/26/20 Omeprazole 20 mg PO Q6AM 01/26/20 Oxycodone HCl [Oxy-Ir 5 mg Tablet] 20 mg PO Q4HP PRN 01/26/20 Promethazine HCl [Phenergan 25 mg Tablet] 25 mg PO Q4HP PRN 01/26/20 Allergies/Adverse Reactions: piperacillin sodium [From Zosyn] Allergy (Unknown, Verified 09/29/16 01:52) Unknown reaction tazobactam sodium [From Zosyn] Allergy (Unknown, Verified 04/12/15 14:39) Unknown reaction dexmedetomidine [From Precedex] Allergy (Verified 01/26/20 13:21) vancomycin Allergy (Verified 01/26/20 13:21) Review of Systems All systems: reviewed and no additional remarkable complaints except as stated - Review of systems per HPI otherwise negative Physical Exam Vital Signs: Temp Pulse Resp BP Pulse Ox 28 H 138/76 H 97 01/26/20 15:02 01/26/20 14:01 01/26/20 15:02 Intake & Output 01/25/20 01/26/20 01/27/20 06:59 06:59 06:59 Intake Total 150 Balance 150 Results Laboratory Results: 01/26/20 12:58 01/26/20 12:58 01/26/20 01/26/20 01/26/20 12:58 12:58 14:52 WBC 12.9 H RBC 5.50 H Hgb 15.3 Hct 45.3 MCV 82 MCH 27.8 MCHC 33.8 RDW 14.3 H Plt Count 332 Seg Neutrophils % 67.4 Sodium 130.2 L Potassium 4.4 Chloride 94 L Carbon Dioxide 24 Anion Gap 12 BUN 4 L Creatinine 0.38 L Est GFR ( Amer) > 60 Glucose 355 H Calcium 9.7 Total Bilirubin 0.5 AST 22 Alkaline Phosphatase 164 H Total Protein 6.8 Albumin 3.9 Urine Color YELLOW Urine Appearance SLIGHTLY-CLOUDY Urine pH 6.0 Ur Specific [place] 1.033 Urine Protein 30 H Urine Glucose (UA) >=500 H Urine Ketones NEGATIVE Urine Blood MODERATE H Urine Nitrite NEGATIVE Ur Leukocyte Esterase SMALL H Urine WBC (Auto) 8 Urine RBC (Auto) 6 01/26/20 01/26/20 01/26/20 12:58 12:58 15:50 Creatine Kinase 117 CK-MB (CK-2) 2.12 Troponin I < 0.012 < 0.012 Impressions: Chest X-Ray 01/26/20 12:51 IMPRESSION: No acute findings Assessment and Plan - Diagnosis (1) COPD (chronic obstructive pulmonary disease) with acute bronchitis Is this a current diagnosis for this admission?: Yes Plan: Cautious use of supplemental oxygen in setting of COPD, target is 89 to 92% to avoid CO2 retention Azithromycin Prednisone Pulmonology consult, patient followed with Dr. Luis prior to going on hospice in the past, now off hospice Bronchial hygiene Duo nebs (2) Acute and chronic respiratory failure with hypercapnia Is this a current diagnosis for this admission?: Yes Plan: Multifactorial: Pulmonary fibrosis, Boop, COPD Treatment as above (3) Intractable low back pain Is this a current diagnosis for this admission?: Yes Plan: Sent from pain management clinic for severe back pain causing likely flare of COPD/pulmonary fibrosis Home pain medications restarted Low-dose IV Dilaudid for breakthrough pain (4) T2DM (type 2 diabetes mellitus) Qualifiers: Diabetes mellitus terminal clerk insulin use: with prison use Diabetes mellitus complication status: with hyperglycemia Qualified Code(s): E11.65 - Type 2 diabetes mellitus with hyperglycemia; 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 of insulin Is this a current diagnosis for this admission?: Yes Plan: Very poorly controlled per patient with sugars up in 600s frequently Needs follow-up with endocrinology outpatient, needs evaluation for insulin pump Has continuous glucose monitor on her left arm Home dose Lantus confirmed with patient at 80 units nightly, sliding scale insulin A1c, Accu-Cheks (5) Transitioned from hospice to self-care Is this a current diagnosis for this admission?: Yes Plan: Was on hospice for 1 year for pulmonary disease and then transitioned off of this due to stability Patient still wishes to be DNR/DNI (6) Bronchiolitis obliterans Is this a current diagnosis for this admission?: Yes Plan: Followed by pulmonology previously with Dr. Luis (7) Opiate dependence, continuous Is this a current diagnosis for this admission?: Yes (8) BOOP (bronchiolitis obliterans with organizing pneumonia) Is this a current diagnosis for this admission?: Yes (9) Chronic pain syndrome Is this a current diagnosis for this admission?: Yes (10) Idiopathic pulmonary fibrosis Is this a current diagnosis for this admission?: Yes - Time Time Spent with patient: 35 or more minutes Medications reviewed and adjusted accordingly: Yes Anticipated Discharge Disposition: Home, Self Care Anticipated Discharge Timeframe: within 72 hours - Inpatient Certification Based on my medical assessment, after consideration of the patient's comorbidities, presenting symptoms, or acuity I expect that the services needed warrant INPATIENT care.: Yes I certify that my determination is in accordance with my understanding of Medicare's requirements for reasonable and necessary INPATIENT services [42 CFR 412.3e].: Yes Medical Necessity: Significant Comorbidiites Make Outpatient Treatment Too Risky, Need Close Monitoring Due to Risk of Patient Decompensation, Need for Nebulizer Therapy and Monitoring of Response, Need for IV Antibiotics, Risk of Complication if Not Cared For in Hospital, Risk of Diagnosis Which Will Require Inpatient Eval/Care/Monitoring
[2020-01-26] MEDS: HYDROMORPHONE HCL INJ/PF 2 MG/ML AMPULE IV PRN (19:41)
[2020-01-26] MEDS: IPRATROPIUM/ALBUTEROL 0.5-2.5 MG/3 ML AMPUL NEB SCH (19:42)
[2020-01-26] MEDS: PREDNISONE 20 MG TABLET PO SCH (19:42)
[2020-01-26] MEDS: AZITHROMYCIN INJ 500 MG VIAL IV SCH (19:42)
[2020-01-26 21:05] LABS: URINE AMPHETAMINES SCREEN NEGATIVE; URINE BARBITURATES SCREEN NEGATIVE; URINE COCAINE SCREEN NEGATIVE; URINE MARIJUANA (THC) SCREEN NEGATIVE; URINE METHADONE SCREEN NEGATIVE; URINE PHENCYCLIDINE SCREEN NEGATIVE
[2020-01-26 21:10] LABS: URINE BENZODIAZEPINES SCREEN UNCONFIRMED POSITIVE
[2020-01-26] MEDS ORDERED: INSULIN GLARGINE,HUM.REC.ANLOG 1,000 UNIT/10 ML VIAL SUBCUT SCH (22:00)
[2020-01-26] MEDS: OXYCODONE HCL IR 5 MG TABLET PO PRN (22:11)
[2020-01-26] MEDS ORDERED: INSULIN LISPRO 100 UNIT/ML 3 ML VIAL SUBCUT ONE (22:45)
[2020-01-26] MEDS ORDERED: INSULIN GLARGINE,HUM.REC.ANLOG 1,000 UNIT/10 ML VIAL (PYX) SUBCUT ONE (23:11)
[2020-01-26] MEDS: INSULIN LISPRO 100 UNIT/ML 3 ML VIAL SUBCUT SCH (23:37)
[2020-01-27] MEDS: HYDROMORPHONE HCL INJ/PF 2 MG/ML AMPULE IV PRN ×3 (01:53→16:00)
[2020-01-27] MEDS: OXYCODONE HCL IR 5 MG TABLET PO PRN ×5 (03:40→22:38)
[2020-01-27] MEDS: PANTOPRAZOLE SODIUM 20 MG TABLET.DR PO SCH (05:40)
[2020-01-27 05:58] LABS: ABSOLUTE LYMPHOCYTES (AUTO) 1.6 10^3/uL (0.5-4.7); ABSOLUTE MONOCYTES (AUTO) 0.3 10^3/uL (0.1-1.4); ABSOLUTE NEUT (AUTO) 8.1 10^3/uL (1.7-8.2); BASOPHILS % (AUTO) 0.5 % (0-2); HEMATOCRIT 42.3 % (36.0-47.0); HEMOGLOBIN 14.4 g/dL (12.0-15.5); LYMPHOCYTES % (AUTO) 15.9 % (13-45); MEAN CORPUSCULAR HEMOGLOBIN 27.9 pg (27.0-33.4); MEAN CORPUSCULAR HGB CONC 34.1 g/dL (32.0-36.0); MEAN CORPUSCULAR VOLUME 82 fl (80-97); MONOCYTES % (AUTO) 3.4 % (3-13); PLATELET COUNT 319 10^3/uL (150-450); RED BLOOD COUNT 5.16 10^6/uL (3.72-5.28); RED CELL DISTRIBUTION WIDTH 14.2 % (11.5-14.0); SEGMENTED NEUTROPHILS % (AUTO) 80.2 % (42-78); TOTAL CELLS COUNTED % (AUTO) 100 %; WHITE BLOOD COUNT 10.1 10^3/uL (4.0-10.5)
[2020-01-27 06:13] LABS: ANION GAP 12 (5-19); BLOOD UREA NITROGEN 8 mg/dL (7-20); CALCIUM 9.6 mg/dL (8.4-10.2); CARBON DIOXIDE 25 mmol/L (22-30); CHLORIDE 96 mmol/L (98-107); GLUCOSE 306 mg/dL (75-110); PHOSPHORUS 4.8 mg/dL (2.5-4.5); POTASSIUM 4.6 mmol/L (3.6-5.0)
[2020-01-27] MEDS: INSULIN LISPRO 100 UNIT/ML 3 ML VIAL SUBCUT SCH ×8 (07:36→22:12)
[2020-01-27] MEDS: IPRATROPIUM/ALBUTEROL 0.5-2.5 MG/3 ML AMPUL NEB SCH ×4 (07:55→20:44)
[2020-01-27] MEDS: ENOXAPARIN SODIUM INJ 40 MG/0.4 ML DISP.SYRIN SUBCUT SCH (09:52)
[2020-01-27] MEDS: INSULIN GLARGINE,HUM.REC.ANLOG 1,000 UNIT/10 ML VIAL SUBCUT SCH (09:53)
[2020-01-27] MEDS: DULOXETINE HCL 30 MG CAPSULE.DR PO SCH (09:54)
[2020-01-27] MEDS: PREDNISONE 20 MG TABLET PO SCH (09:54)
[2020-01-27] MEDS: DOCUSATE SODIUM 100 MG CAPSULE PO SCH (09:54)
--- NOTE | 2020-01-27 13:16 | PDOC CONSULTATION ---
Consultation Consult Date: 01/27/20 Provider Consulted: YOSSI GUADALUPE History of Present Illness Admission Date/PCP: 01/26/20 19:30 PETAR EDMONDS MD History of Present Illness: CHUCKIE OSPINA is a 49 year old female Patient presents with increasing dyspnea and shortness of breath. She gives a very interesting history of pulmonary disease. This dates back to roughly 2011 when she presented with acute shortness of breath and in fact she had katja respiratory failure. She apparently was intubated and admitted for an extended period of time in [place] in 2011. Ultimately she underwent transbronchial biopsy and then open biopsy. Initial transbronchial biopsies revealed bronchiolitis obliterans with organizing pneumonia or Boop. Subsequent open biopsies suggested the presence of pulmonary fibrosis. In 2011 she was treated with a many month course of steroids. This largely resolved her symptoms until 2013 when she had a recurrence of her symptomatology. This was manifested by again respiratory failure requiring intubation. Patient indicates she was treated again with a course of steroids with improvement in her underlying breathlessness and shortness of breath. She did well until 2017 when she again had a recurrence of her symptomatology accompanied by shortness of breath and respiratory failure. This necessitated intubation. Apparently at this time she was treated in [facility]. No biopsies were repeated but she was felt to have exacerbation of underlying pulmonary fibrosis. She was initially placed on steroids and then tapered off. Since 2018 depression has not taken prednisone. She indicates that she was a cigarette smoker in the past smoking as much as 1 pack/day for 10 years so she stopped however in 2011 when she had her first episode of respiratory failure necessitating intubation. There is a strong family history of pulmonary fibrosis. Apparently 3 family members have pulmonary fibrosis and 2 have from pulmonary fibrosis. Apparently a father and a brother both had pulmonary fibrosis and nephew now has pulmonary fibrosis. Further details are not known at this time. Patient denies much in the way of occupational exposure. She now presents with a 2-month history of progressive shortness of breath. This is accompanied by some cough and mucus production. There is however no katja fevers chills night sweats nausea or vomiting. Additional symptomatology is that of paroxysmal tacky arrhythmias. She also has what she describes as pressure-like chest sensations that cause breathlessness. Activity is generally limited to walking. She is unable to perform light house chores. She is unable to perform any shopping or any activities outside of the home. Past Medical History Cardiac Medical History: Reports: Congestive Heart Failure, Coronary Artery Disease, Myocardial Infarction, Hypertension, Pulmonary Embolism - Several years ago; blood thinner 6 months, stop by physician. Pulmonary Medical History: Reports: Asthma, Bronchitis, Chronic Obstructive Pulmonary Disease (COPD), Intubation, Respiratory Failure, Other - Pulmonary fibrosis of bronchiolitis obliterans Denies: Pneumonia, Sleep Apnea, Tuberculosis Neurological Medical History: Denies: Seizures Endocrine Medical History: Denies: Diabetes Mellitus Type 1, Diabetes Mellitus Type 2, Hyperthyroidism, Hypothyroidism Malignancy Medical History: Denies: Lung Cancer GI Medical History: Denies: Cirrhosis, Gastroesophageal Reflux Disease, Hepatitis Musculoskeltal Medical History: Denies: Arthritis Psychiatric Medical History: Denies: Depression Infectious Medical History: Denies: Clostridium Difficile, Methicillin-Resistant Staph Aureus Past Surgical History Past Surgical History: Reports: Appendectomy - 1989, Cholecystectomy, Hysterectomy, Tonsillectomy - 1974 Denies: Pacemaker Social History Lives with: Family Smoking Status: Former Smoker Cigarettes Packs Per Day: 2,012 Frequency of Alcohol Use: None Hx Recreational Drug Use: No Drugs: None Hx Prescription Drug Abuse: No - Advance Directive Resuscitation Status: Do Not Resuscitate Family History Family History: Arthritis, COPD - Father, Malignancy - Pulmonary fibrosis, Other - Pulmonary hypertension in mother, Father with pulmonary fibrosis Parental Family History Reviewed: Yes - See above Children Family History Reviewed: Yes - See above Sibling(s) Family History Reviewed.: Yes - See above Medication/Allergy Home Medications: Cyclobenzaprine HCl [Flexeril 10 mg Tablet] 10 mg PO HSP PRN 01/26/20 Duloxetine HCl [Cymbalta] 60 mg PO DAILY 01/26/20 Fentanyl [Duragesic 25 mcg/hr Transdermal Patch] 25 mcg TOP Q3DAYS 01/26/20 Insulin Glargine,Hum.rec.anlog [Lantus Insulin 100 Unit/1 ml 10 ml] 60 units SQ QHS 01/26/20 Omeprazole 20 mg PO Q6AM 01/26/20 Oxycodone HCl [Oxy-Ir 5 mg Tablet] 20 mg PO Q4HP PRN 01/26/20 Promethazine HCl [Phenergan 25 mg Tablet] 25 mg PO Q4HP PRN 01/26/20 Allergies/Adverse Reactions: piperacillin sodium [From Zosyn] Allergy (Unknown, Verified 09/29/16 01:52) Unknown reaction tazobactam sodium [From Zosyn] Allergy (Unknown, Verified 04/12/15 14:39) Unknown reaction dexmedetomidine [From Precedex] Allergy (Verified 01/26/20 13:21) vancomycin Allergy (Verified 01/26/20 13:21) Physical Exam Vital Signs: Temp Pulse Resp BP Pulse Ox 97.6 F 81 16 121/77 95 01/27/20 07:35 01/27/20 07:55 01/27/20 07:55 01/27/20 07:35 01/27/20 07:55 Intake & Output 01/26/20 01/27/20 01/28/20 06:59 06:59 06:59 Intake Total 854 Output Total 1200 Balance -346 Weight 87.9 kg Exam: Exam reveals markedly diminished breath sounds throughout all lung paidlla without obvious wheezes rales or rhonchi. HEENT neck heart abdomen extremity exam is unremarkable. Results Laboratory Results: 01/27/20 04:15 01/27/20 04:15 01/26/20 01/26/20 01/26/20 12:58 12:58 14:52 WBC 12.9 H RBC 5.50 H Hgb 15.3 Hct 45.3 MCV 82 MCH 27.8 MCHC 33.8 RDW 14.3 H Plt Count 332 Seg Neutrophils % 67.4 Sodium 130.2 L Potassium 4.4 Chloride 94 L Carbon Dioxide 24 Anion Gap 12 BUN 4 L Creatinine 0.38 L Est GFR ( Amer) > 60 Glucose 355 H Calcium 9.7 Phosphorus Magnesium Total Bilirubin 0.5 AST 22 Alkaline Phosphatase 164 H Total Protein 6.8 Albumin 3.9 TSH Urine Color YELLOW Urine Appearance SLIGHTLY-CLOUDY Urine pH 6.0 Ur Specific [place] 1.033 Urine Protein 30 H Urine Glucose (UA) >=500 H Urine Ketones NEGATIVE Urine Blood MODERATE H Urine Nitrite NEGATIVE Ur Leukocyte Esterase SMALL H Urine WBC (Auto) 8 Urine RBC (Auto) 6 01/27/20 01/27/20 01/27/20 04:15 04:15 04:15 WBC 10.1 RBC 5.16 Hgb 14.4 Hct 42.3 MCV 82 MCH 27.9 MCHC 34.1 RDW 14.2 H Plt Count 319 Seg Neutrophils % 80.2 H Sodium 133.3 L Potassium 4.6 Chloride 96 L Carbon Dioxide 25 Anion Gap 12 BUN 8 Creatinine 0.41 L Est GFR ( Amer) > 60 Glucose 306 H Calcium 9.6 Phosphorus 4.8 H Magnesium 1.8 Total Bilirubin AST Alkaline Phosphatase Total Protein Albumin TSH 0.43 L Urine Color Urine Appearance Urine pH Ur Specific [place] Urine Protein Urine Glucose (UA) Urine Ketones Urine Blood Urine Nitrite Ur Leukocyte Esterase Urine WBC (Auto) Urine RBC (Auto) 01/26/20 14:52 Clean Catch Midstream Urine Culture - Final Group B Beta Streptococcus 01/26/20 01/26/20 01/26/20 12:58 12:58 15:50 Creatine Kinase 117 CK-MB (CK-2) 2.12 Troponin I < 0.012 < 0.012 Impressions: Chest X-Ray 01/26/20 12:51 IMPRESSION: No acute findings Status: Image reviewed by me - I did review this patient's admission chest x- ray. While she does have some suggestion of mild scarring and it certainly does not look like end-stage lung disease. Assessment & Plan - Diagnosis (1) Bronchiolitis obliterans Is this a current diagnosis for this admission?: Yes (2) Acute and chronic respiratory failure Qualifiers: Respiratory failure complication: hypoxia Qualified Code(s): J96.21 - Acute and chronic respiratory failure with hypoxia - Plan Summary Plan Summary: This patient gives a very interesting history of pulmonary disease dating back to 2011. I was able to review records from [place] from 2011 which revealed the transbronchial biopsies. Pathology report suggested bronchiolitis obliterans with organizing pneumonia at that time. Interestingly her chest x-ray today is not his abnormal as one would expect given the degree of breathlessness and oxygen requirements that the patient has. I discussed at length this patient's various therapeutic and diagnostic options. In the past she had resigned herself to no further intervention and essentially as she was enrolled in hospice. She did not obviously in hospice and after year was dismissed. Again after a long discussion with the patient she agreed to repeat pulmonary evaluation and and even consideration of cardiac evaluation as well because of her tachyarrhythmias and angina-like pressure sensations. I will start first with a high resolution CT of the chest and arterial blood gas on oxygen supplementation and pulmonary function testing. This should give me a good assessment of her underlying pulmonary function and whether or not it is end- stage. She may also benefit from cardiac evaluation to include some sort of monitoring for arrhythmias and consideration for evaluation of angina symptomatology. We will proceed with the above tests and assist as I can during this hospitalization.
[2020-01-27] MEDS: AZITHROMYCIN 500 MG in DEXTROSE 5%-WATER 250 ML IV SCH (13:17)
[2020-01-27] MEDS ORDERED: ALBUTEROL SULFATE 0.083% NEB 2.5 MG/3 ML AMPUL NEB PRN (13:26)
--- NOTE | 2020-01-27 15:04 | PDOC PROGRESS REPORT ---
Subjective Subjective:: CHUCKIE OSPINA is a 49 year old female with past medical history significant for COPD, T2DM uncontrolled, CHF, GA, narcotics dependency, pulmonary fibrosis, bronchiolitis obliterans, chronic pain syndrome who presents from her pain management clinic after she was undergoing a nerve ablation procedure which she has had multiple times in the past however this time patient experienced severe pain afterwards and had trouble breathing and began wheezing. Patient denies any sick contacts or recent fevers. She states she has frequent chills which have been going on for years. She has frequent chest pain as well but does not relate this to any exertion and it does not radiate anywhere. Troponin negative x2 on admission. Patient does have a history of GA but states she has no stents or bypass or pacemaker. She states she was on hospice for 1 year and then was taken off of it because she stabilized. Patient was followed by Dr. Luis prior to going on hospice and I have consulted his service with Dr. Mcgregor now. Started patient on empiric azithromycin as well as prednisone for likely COPD versus fibrosis flare. Patient's home narcotics were continued with some low- dose IV Ativan for breakthrough pain only. Patient request to be DNR/DNI. 01/27/2020 Patient is feeling much better today and her pain is well controlled and her breathing is much improved as well. She states that she still feels very poorly but she certainly looks better. Her wheezing is substantially improved from yesterday. I told her we will cut down the IV Dilaudid as available and continue her on her home dose oral narcotics. Discussed the case with pulmonology and Dr. Mcgregor agreed to see her. He has started an extensive pulmonary evaluation and we appreciate his help. TSH decreased and A1c is 13.7, patient states her A1c was above 14 previously. Increase Lantus. Added mealtime lispro. Reason For Visit: COPD EXACERBATION,INTRACTABLE BACK PAIN Physical Exam Vital Signs: Temp Pulse Resp BP Pulse Ox 97.6 F 82 16 121/77 95 01/27/20 07:35 01/27/20 13:55 01/27/20 13:55 01/27/20 07:35 01/27/20 13:55 Intake & Output 01/26/20 01/27/20 01/28/20 06:59 06:59 06:59 Intake Total 854 Output Total 1200 Balance -346 Weight 87.9 kg Exam: General appearance: PRESENT: Obese, in no acute distress, states she feels a bit better today but not much Head exam: PRESENT: atraumatic, normocephalic Eye exam: PRESENT: conjunctiva pink. ABSENT: scleral icterus Mouth exam: PRESENT: moist Respiratory exam: PRESENT: Very scant wheezing bilaterally ABSENT: rales, rhonchi Cardiovascular exam: PRESENT: RRR. ABSENT: diastolic murmur, rubs, systolic murmur GI/Abdominal exam: PRESENT: normal bowel sounds, soft. ABSENT: distended, guarding, mass, organolmegaly, rebound, tenderness Neurological exam: PRESENT: alert, awake, oriented to person, oriented to place, oriented to time, oriented to situation Psychiatric exam: PRESENT: appropriate affect, normal mood Skin exam: PRESENT: dry, intact, warm Results Laboratory Results: 01/27/20 04:15 01/27/20 04:15 01/26/20 01/27/20 01/27/20 14:52 04:15 04:15 WBC 10.1 RBC 5.16 Hgb 14.4 Hct 42.3 MCV 82 MCH 27.9 MCHC 34.1 RDW 14.2 H Plt Count 319 Seg Neutrophils % 80.2 H Sodium 133.3 L Potassium 4.6 Chloride 96 L Carbon Dioxide 25 Anion Gap 12 BUN 8 Creatinine 0.41 L Est GFR ( Amer) > 60 Glucose 306 H Calcium 9.6 Phosphorus 4.8 H Magnesium 1.8 TSH Urine Color YELLOW Urine Appearance SLIGHTLY-CLOUDY Urine pH 6.0 Ur Specific [place] 1.033 Urine Protein 30 H Urine Glucose (UA) >=500 H Urine Ketones NEGATIVE Urine Blood MODERATE H Urine Nitrite NEGATIVE Ur Leukocyte Esterase SMALL H Urine WBC (Auto) 8 Urine RBC (Auto) 6 01/27/20 04:15 WBC RBC Hgb Hct MCV MCH MCHC RDW Plt Count Seg Neutrophils % Sodium Potassium Chloride Carbon Dioxide Anion Gap BUN Creatinine Est GFR ( Amer) Glucose Calcium Phosphorus Magnesium TSH 0.43 L Urine Color Urine Appearance Urine pH Ur Specific [place] Urine Protein Urine Glucose (UA) Urine Ketones Urine Blood Urine Nitrite Ur Leukocyte Esterase Urine WBC (Auto) Urine RBC (Auto) 01/26/20 14:52 Clean Catch Midstream Urine Culture - Final Group B Beta Streptococcus 01/26/20 01/26/20 01/26/20 12:58 12:58 15:50 Creatine Kinase 117 CK-MB (CK-2) 2.12 Troponin I < 0.012 < 0.012 Impressions: Chest X-Ray 01/26/20 12:51 IMPRESSION: No acute findings Assessment and Plan - Diagnosis (1) COPD (chronic obstructive pulmonary disease) with acute bronchitis Is this a current diagnosis for this admission?: Yes Plan: Cautious use of supplemental oxygen in setting of COPD, target is 89 to 92% to avoid CO2 retention Azithromycin Prednisone Pulmonology consult, patient followed with Dr. Luis prior to going on hospice in the past, now off hospice -PFT's Bronchial hygiene Duo nebs (2) Acute and chronic respiratory failure with hypercapnia Is this a current diagnosis for this admission?: Yes Plan: Multifactorial: Pulmonary fibrosis, Boop, COPD Treatment as above (3) Intractable low back pain Is this a current diagnosis for this admission?: Yes Plan: Sent from pain management clinic for severe back pain causing likely flare of COPD/pulmonary fibrosis Home pain medications restarted Low-dose IV Dilaudid for breakthrough pain, weaning (4) T2DM (type 2 diabetes mellitus) Qualifiers: Diabetes mellitus halfway insulin use: with rat exterminator use Diabetes mellitus complication status: with hyperglycemia Qualified Code(s): E11.65 - Type 2 diabetes mellitus with hyperglycemia; Z79.4 - retirement (current) use of insulin Is this a current diagnosis for this admission?: Yes Plan: Very poorly controlled per patient with sugars up in 600s frequently Needs follow-up with endocrinology outpatient, needs evaluation for insulin pump Has continuous glucose monitor on her left arm Home dose Lantus confirmed with patient at 80 units nightly, sliding scale insulin Added morning Lantus Added mealtime lispro A1c 13.7, Accu-Cheks (5) Transitioned from hospice to self-care Is this a current diagnosis for this admission?: Yes (6) Bronchiolitis obliterans Is this a current diagnosis for this admission?: Yes (7) Opiate dependence, continuous Is this a current diagnosis for this admission?: Yes (8) BOOP (bronchiolitis obliterans with organizing pneumonia) Is this a current diagnosis for this admission?: Yes Plan: Per Dr Mcgregor: "high resolution CT of the chest and arterial blood gas on oxygen arriola pplementation and pulmonary function testing. She may also benefit from cardiac evaluation to include some sort of monitoring for arrhythmias and consideration for evaluation of angina symptomatology" (9) Chronic pain syndrome Is this a current diagnosis for this admission?: Yes (10) Idiopathic pulmonary fibrosis Is this a current diagnosis for this admission?: Yes - Time Time Spent with patient: 25-34 minutes Medications reviewed and adjusted accordingly: Yes Anticipated Discharge Disposition: Home, Self Care Anticipated Discharge Timeframe: within 36 hours - Inpatient Certification Based on my medical assessment, after consideration of the patient's comorbidities, presenting symptoms, or acuity I expect that the services needed warrant INPATIENT care.: Yes I certify that my determination is in accordance with my understanding of [facility]'s requirements for reasonable and necessary INPATIENT services [42 CFR 412.3e].: Yes Medical Necessity: Significant Comorbidiites Make Outpatient Treatment Too Risky, Need Close Monitoring Due to Risk of Patient Decompensation, Need for Nebulizer Therapy and Monitoring of Response, Need for IV Antibiotics, Risk of Complication if Not Cared For in Hospital, Risk of Diagnosis Which Will Require Inpatient Eval/Care/Monitoring
--- NOTE | 2020-01-27 15:48 | RADIOLOGY REPORT (SQ) ---
EXAM DESCRIPTION: CT CHEST WITHOUT IMAGES COMPLETED DATE/TIME: 01/27/2020 3:21 pm REASON FOR STUDY: Longstanding history of Boop and pulmonary fibro COMPARISON: 09/30/2016, 01/17/2016 TECHNIQUE: CT scan performed of the chest without intravenous contrast. Images reviewed with lung, soft tissue and bone windows. Reconstructed coronal and sagittal MPR images reviewed. All images st ored on PACS. All CT scanners at this facility use dose modulation, iterative reconstruction, and/or weight based d osing when appropriate to reduce radiation dose to as low as reasonably achievable (ALARA). [facility]: Dose Right [facility]: CareDose [facility]: Dose Right [facility]: Teradose 4D [facility]: [employer] RADIATION DOSE: CT Rad equipment meets quality standard of care and radiation dose reduction techniq ues were employed. CTDIvol: 16.2 mGy. DLP: 639 mGy-cm. mGy. LIMITATIONS: No technical limitations. FINDINGS: LUNGS AND PLEURA: Persistent areas of ground-glass opacity in both the upper and lower lob es. Changes are more prominent in the lung bases. Small stable pulmonary nodule in the right upper lobe. This is best demonstrated on series 4, image 44. This measures 3.3 mm in greatest diameter. There a 2nd pulmonary nodule in the right lower lobe. This is best demonstrated on series 4, image 5 8. This measures 4.8 mm. This nodule is grossly stable dating back to 2010. The upper lobe nodule appears new from 2010. HILAR AND MEDIASTINAL STRUCTURES: No identified masses or abnormal nodes. No obvious aneurysm. HEART AND VASCULAR STRUCTURES: No aneurysm. No pericardial effusion. UPPER ABDOMEN: No significant findings. Limited exam. THYROID AND OTHER SOFT TISSUES: No masses. No adenopathy. BONES: No significant finding. HARDWARE: None in the chest. OTHER: No other significant findings. IMPRESSION: 1. Bilateral ground-glass opacities most marked in the lung bases. Overall aeration is significantly improved from prior study. 2. Small right upper and lower lobe pulmonary nodules as described. The right lower lobe pulmonary nodules stable from 2010 and needs no further workup. The 3.3 mm nodule in the periphery of the righ t upper lobe was probably present in 17 but less apparent due to the overlying airspace disease. Ple ase see below for recommended follow-up. COMMENT: [place] CRITERIA FOR FOLLOW-UP OF PULMONARY NODULES Incidentally detected new nodules in persons 35 or older. HIGH RISK: History of smoking or other known risk factors. <6 mm single solid nodule: LOW RISK: no routine followup. HIGH RISK: optional CT 12 mo. TECHNICAL DOCUMENTATION: JOB ID: [id number] Quality ID # [id number]: Final reports with documentation of one or more dose reduction techniques (e.g., Au tomated exposure control, adjustment of the mA and/or kV according to patient size, use of iterative reconstruction technique) 2010 [employer]- All Rights Reserved Reading location - IP/workstation name: [email or web address]
[2020-01-27 16:21] LABS: ARTERIAL BLOOD BASE EXCESS 0.3 mmol/L; ARTERIAL BLOOD H2CO3 1.35 mmol/L (1.05-1.35); ARTERIAL BLOOD HCO3 25.8 mmol/L (20-24); ARTERIAL BLOOD O2 SATURATION 94.2 % (94-98); ARTERIAL BLOOD PCO2 44.9 mmHg (35-45); ARTERIAL BLOOD PH 7.38 (7.35-7.45); ARTERIAL BLOOD PO2 72.2 mmHg (80-100); ARTERIAL BLOOD TOTAL CO2 27.2 mmol/L (21-25)
[2020-01-27 16:25] LABS: ARTERIAL BLOOD FIO2 3.5L
[2020-01-27] MEDS ORDERED: FENTANYL 25 MCG/HR PATCH.TD72 TOP SCH (17:00)
[2020-01-27] MEDS: AZITHROMYCIN INJ 500 MG VIAL IV SCH (17:56)
[2020-01-27] MEDS ORDERED: INSULIN GLARGINE,HUM.REC.ANLOG 1,000 UNIT/10 ML VIAL SUBCUT SCH (19:00)
[2020-01-27] MEDS ORDERED: INSULIN LISPRO 100 UNIT/ML 3 ML VIAL SUBCUT ONE (21:30)
[2020-01-28] MEDS: HYDROMORPHONE HCL INJ/PF 2 MG/ML AMPULE IV PRN ×2 (01:11→09:24)
[2020-01-28 05:22] LABS: ABSOLUTE BASOPHILS # (AUTO) 0.1 10^3/uL (0.0-0.2); ABSOLUTE EOSINOPHILS # (AUTO) 0.2 10^3/uL (0.0-0.6); ABSOLUTE LYMPHOCYTES (AUTO) 5.5 10^3/uL (0.5-4.7); ABSOLUTE MONOCYTES (AUTO) 0.9 10^3/uL (0.1-1.4); ABSOLUTE NEUT (AUTO) 8.6 10^3/uL (1.7-8.2); BASOPHILS % (AUTO) 0.8 % (0-2); EOSINOPHILS % (AUTO) 1.4 % (0-6); HEMATOCRIT 39.3 % (36.0-47.0); HEMOGLOBIN 13.5 g/dL (12.0-15.5); LYMPHOCYTES % (AUTO) 35.7 % (13-45); MEAN CORPUSCULAR HEMOGLOBIN 28.1 pg (27.0-33.4); MEAN CORPUSCULAR HGB CONC 34.3 g/dL (32.0-36.0); MEAN CORPUSCULAR VOLUME 82 fl (80-97); MONOCYTES % (AUTO) 5.9 % (3-13); PLATELET COUNT 281 10^3/uL (150-450); RED BLOOD COUNT 4.79 10^6/uL (3.72-5.28); RED CELL DISTRIBUTION WIDTH 14.3 % (11.5-14.0); SEGMENTED NEUTROPHILS % (AUTO) 56.2 % (42-78); TOTAL CELLS COUNTED % (AUTO) 100 %; WHITE BLOOD COUNT 15.3 10^3/uL (4.0-10.5)
[2020-01-28 05:41] LABS: ANION GAP 10 (5-19); BLOOD UREA NITROGEN 8 mg/dL (7-20); CALCIUM 9.2 mg/dL (8.4-10.2); CARBON DIOXIDE 27 mmol/L (22-30); CHLORIDE 99 mmol/L (98-107); GLUCOSE 151 mg/dL (75-110); POTASSIUM 3.6 mmol/L (3.6-5.0)
[2020-01-28] MEDS: PANTOPRAZOLE SODIUM 20 MG TABLET.DR PO SCH (06:07)
[2020-01-28] MEDS: OXYCODONE HCL IR 5 MG TABLET PO PRN ×2 (06:07→12:54)
[2020-01-28] MEDS: INSULIN LISPRO 100 UNIT/ML 3 ML VIAL SUBCUT SCH ×4 (08:00→13:03)
[2020-01-28] MEDS ORDERED: INFLUENZA QUAD (6MOS+) 2020-21 VAC 0.5 ML SYR IM ONE (08:00)
[2020-01-28] MEDS: IPRATROPIUM/ALBUTEROL 0.5-2.5 MG/3 ML AMPUL NEB SCH ×2 (08:42→12:01)
[2020-01-28] MEDS: DULOXETINE HCL 30 MG CAPSULE.DR PO SCH (09:25)
[2020-01-28] MEDS: PREDNISONE 20 MG TABLET PO SCH (09:26)
[2020-01-28] MEDS: DOCUSATE SODIUM 100 MG CAPSULE PO SCH (09:26)
[2020-01-28] MEDS: ENOXAPARIN SODIUM INJ 40 MG/0.4 ML DISP.SYRIN SUBCUT SCH (09:26)
[2020-01-28] MEDS: INSULIN GLARGINE,HUM.REC.ANLOG 1,000 UNIT/10 ML VIAL SUBCUT SCH (09:26)
[2020-01-28] MEDS: AZITHROMYCIN 500 MG in DEXTROSE 5%-WATER 250 ML IV SCH (13:07)
[2020-01-28 13:31] VITALS: BP 135/76
--- NOTE | 2020-01-28 14:38 | PDOC DISCHARGE SUMMARY ---
Impression - Admit/DC Date/PCP Admission Date/Primary Care Provider: 01/26/20 19:30 PETAR EDMONDS MD Discharge Date: 01/28/20 - Discharge Diagnosis (1) COPD (chronic obstructive pulmonary disease) with acute bronchitis Is this a current diagnosis for this admission?: Yes (2) Acute and chronic respiratory failure with hypercapnia Is this a current diagnosis for this admission?: Yes (3) Intractable low back pain Is this a current diagnosis for this admission?: Yes (4) T2DM (type 2 diabetes mellitus) Is this a current diagnosis for this admission?: Yes (5) Transitioned from hospice to self-care Is this a current diagnosis for this admission?: Yes (6) Bronchiolitis obliterans Is this a current diagnosis for this admission?: Yes (7) Opiate dependence, continuous Is this a current diagnosis for this admission?: Yes (8) BOOP (bronchiolitis obliterans with organizing pneumonia) Is this a current diagnosis for this admission?: Yes (9) Chronic pain syndrome Is this a current diagnosis for this admission?: Yes (10) Idiopathic pulmonary fibrosis Is this a current diagnosis for this admission?: Yes - Additional Information Resuscitation Status: Do Not Resuscitate Discharge Activity: Activity As Tolerated, Balance Activity w/Rest Referrals: YOSSI MCGREGOR MD [ACTIVE PROVISIONAL STAFF] - 02/05/20 10:30 am () Prescriptions: Azithromycin 500 mg PO DAILY #3 tablet Prednisone [Deltasone 20 mg Tablet] 20 mg PO DAILY #30 tablet Insulin Lispro [Humalog Insulin (Lispro) 100 unit/mL] 0 - 12 unit SUBCUT ASDIR #3 vial Insulin Glargine,Hum.rec.anlog [Lantus Insulin 100 Unit/1 ml 10 ml] 80 units SQ QHS #3 vial Home Medications: Cyclobenzaprine HCl [Flexeril 10 mg Tablet] 10 mg PO HSP PRN 01/26/20 Duloxetine HCl [Cymbalta] 60 mg PO DAILY 01/26/20 Fentanyl [Duragesic 25 mcg/hr Transdermal Patch] 25 mcg TOP Q3DAYS 01/26/20 Omeprazole 20 mg PO Q6AM 01/26/20 Oxycodone HCl [Oxy-Ir 5 mg Tablet] 20 mg PO Q4HP PRN 01/26/20 Promethazine HCl [Phenergan 25 mg Tablet] 25 mg PO Q4HP PRN 01/26/20 Azithromycin 500 mg PO DAILY #3 tablet 01/28/20 Insulin Glargine,Hum.rec.anlog [Lantus Insulin 100 Unit/1 ml 10 ml] 10 unit SUBCUT DAILY unit 01/28/20 Insulin Glargine,Hum.rec.anlog [Lantus Insulin 100 Unit/1 ml 10 ml] 80 units SQ QHS #3 vial 01/28/20 Insulin Lispro [Humalog Insulin (Lispro) 100 unit/mL] 0 - 12 unit SUBCUT ASDIR #3 vial 01/28/20 Prednisone [Deltasone 20 mg Tablet] 20 mg PO DAILY #30 tablet 01/28/20 History of Present Illiness History of Present Illness: CHUCKIE OSPINA is a 49 year old female with past medical history significant for COPD, T2DM uncontrolled, CHF, TX, narcotics dependency, pulmonary fibrosis, bronchiolitis obliterans, chronic pain syndrome who presents from her pain management clinic after she was undergoing a nerve ablation procedure which she has had multiple times in the past however this time patient experienced severe pain afterwards and had trouble breathing and began wheezing. Patient denies any sick contacts or recent fevers. She states she has frequent chills which have been going on for years. She has frequent chest pain as well but does not relate this to any exertion and it does not radiate anywhere. Troponin negative x2 on admission. Patient does have a history of TX but states she has no stents or bypass or pacemaker. She states she was on hospice for 1 year and then was taken off of it because she stabilized. Patient was followed by Dr. Luis prior to going on hospice and I have consulted his service with Dr. Mcgregor now. Started patient on empiric azithromycin as well as prednisone for likely COPD versus fibrosis flare. Patient's home narcotics were continued with some low- dose IV Ativan for breakthrough pain only. Patient request to be DNR/DNI. Hospital Course Hospital Course: CHUCKIE OSPINA is a 49 year old female with past medical history significant for COPD, T2DM uncontrolled, CHF, TX, narcotics dependency, pulmonary fibrosis, bronchiolitis obliterans, chronic pain syndrome who presents from her pain management clinic after she was undergoing a nerve ablation procedure which she has had multiple times in the past however this time patient experienced severe pain afterwards and had trouble breathing and began wheezing. Patient denies any sick contacts or recent fevers. She states she has frequent chills which have been going on for years. She has frequent chest pain as well but does not relate this to any exertion and it does not radiate anywhere. Troponin negative x2 on admission. Patient does have a history of TX but states she has no stents or bypass or pacemaker. She states she was on hospice for 1 year and then was taken off of it because she stabilized. Patient was followed by Dr. Luis prior to going on hospice and I have consulted his service with Dr. Mcgregor now. Started patient on empiric azithromycin as well as prednisone for likely COPD versus fibrosis flare. Patient's home narcotics were continued with some low- dose IV Ativan for breakthrough pain only. Patient request to be DNR/DNI. 01/27/2020 Patient is feeling much better today and her pain is well controlled and her breathing is much improved as well. She states that she still feels very poorly but she certainly looks better. Her wheezing is substantially improved from yesterday. I told her we will cut down the IV Dilaudid as available and continue her on her home dose oral narcotics. Discussed the case with pulmonology and Dr. Mcgregor agreed to see her. He has started an extensive pulmonary evaluation and we appreciate his help. TSH decreased and A1c is 13.7, patient states her A1c was above 14 previously. Increase Lantus. Added mealtime lispro. 01/28/2020 Patient is to be doing much better today. Her lungs are essentially clear on exam. Her pain is well controlled on her home pain medication. Blood sugar is significantly improved down to the low 200s and mid 100s. ABG showed some mild hypoxemia. High-resolution CT scan actually showed notable improvement in infiltrates from prior exam and nodules not significantly changed. (1) COPD (chronic obstructive pulmonary disease) with acute bronchitisexacerbation resolved Is this a current diagnosis for this admission?: Yes Plan: Cautious use of supplemental oxygen in setting of COPD, target is 89 to 92% to avoid CO2 retention Azithromycin to complete 5-day course Prednisone 20 mg daily until pulmonology follow-up Pulmonology consult, patient followed with Dr. Luis prior to going on hospice in the past, now off hospice -PFT's Bronchial hygiene Duo nebs (2) Acute and chronic respiratory failure with hypercapniaresolved Is this a current diagnosis for this admission?: Yes Plan: Multifactorial: Pulmonary fibrosis, Boop, COPD Treatment as above (3) Intractable low back painresolved to baseline pain Is this a current diagnosis for this admission?: Yes Plan: Sent from pain management clinic for severe back pain causing likely flare of COPD/pulmonary fibrosis Home pain medications restarted Low-dose IV Dilaudid for breakthrough pain, weaning (4) T2DM (type 2 diabetes mellitus)significantly improved Qualifiers: 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 Diabetes mellitus complication status: with hyperglycemia Qualified Code(s): E11.65 - Type 2 diabetes mellitus with hyperglycemia; Z79.4 - intermodal owner operator truck driver (current) use of insulin Is this a current diagnosis for this admission?: Yes Plan: Very poorly controlled per patient with sugars up in 600s frequently Needs follow-up with endocrinology outpatient, needs evaluation for insulin pump Has continuous glucose monitor on her left arm Home dose Lantus confirmed with patient at 80 units nightly, sliding scale insulin Added morning Lantus 10 units Added mealtime lispro although patient was not consistently taking this A1c 13.7, Accu-Cheks (5) Transitioned from hospice to self-care Is this a current diagnosis for this admission?: Yes (6) Bronchiolitis obliterans Is this a current diagnosis for this admission?: Yes (7) Opiate dependence, continuous Is this a current diagnosis for this admission?: Yes (8) BOOP (bronchiolitis obliterans with organizing pneumonia) Is this a current diagnosis for this admission?: Yes Plan: Per Dr Mcgregor: "high resolution CT of the chest and arterial blood gas on oxygen supplementation and pulmonary function testing. She may also benefit from cardiac evaluation to include some sort of monitoring for arrhythmias and consideration for evaluation of angina symptomatology" (9) Chronic pain syndrome Is this a current diagnosis for this admission?: Yes (10) Idiopathic pulmonary fibrosis Is this a current diagnosis for this admission?: Yes Physical Exam Vital Signs: Temp Pulse Resp BP Pulse Ox 97.9 F 85 18 135/76 H 97 01/28/20 12:00 01/28/20 12:04 01/28/20 12:04 01/28/20 12:00 01/28/20 12:04 Intake & Output 01/27/20 01/28/20 01/29/20 06:59 06:59 06:59 Intake Total 854 1444 570 Output Total 1200 1600 Balance -346 -156 570 Weight 87.9 kg 67.8 kg Exam: General appearance: PRESENT: Obese, in no acute distress, states she feels better and would like to go home Head exam: PRESENT: atraumatic, normocephalic Eye exam: PRESENT: conjunctiva pink. ABSENT: scleral icterus Mouth exam: PRESENT: moist Respiratory exam: PRESENT: Clear to auscultation bilaterally ABSENT: rales, rhonchi Cardiovascular exam: PRESENT: RRR. ABSENT: diastolic murmur, rubs, systolic murmur GI/Abdominal exam: PRESENT: normal bowel sounds, soft. ABSENT: distended, guarding, mass, organolmegaly, rebound, tenderness Neurological exam: PRESENT: alert, awake, oriented to person, oriented to place, oriented to time, oriented to situation Psychiatric exam: PRESENT: appropriate affect, normal mood Skin exam: PRESENT: dry, intact, warm Results Laboratory Results: WBC 15.3 10^3/uL (4.0-10.5) H 01/28/20 04:37 RBC 4.79 10^6/uL (3.72-5.28) 01/28/20 04:37 Hgb 13.5 g/dL (12.0-15.5) 01/28/20 04:37 Hct 39.3 % (36.0-47.0) 01/28/20 04:37 MCV 82 fl (80-97) 01/28/20 04:37 MCH 28.1 pg (27.0-33.4) 01/28/20 04:37 MCHC 34.3 g/dL (32.0-36.0) 01/28/20 04:37 RDW 14.3 % (11.5-14.0) H 01/28/20 04:37 Plt Count 281 10^3/uL (150-450) 01/28/20 04:37 Lymph % (Auto) 35.7 % (13-45) 01/28/20 04:37 [place] % (Auto) 5.9 % (3-13) 01/28/20 04:37 Eos % (Auto) 1.4 % (0-6) 01/28/20 04:37 Baso % (Auto) 0.8 % (0-2) 01/28/20 04:37 Absolute Neuts (auto) 8.6 10^3/uL (1.7-8.2) H 01/28/20 04:37 Absolute Lymphs (auto) 5.5 10^3/uL (0.5-4.7) H 01/28/20 04:37 Absolute Monos (auto) 0.9 10^3/uL (0.1-1.4) 01/28/20 04:37 Absolute Eos (auto) 0.2 10^3/uL (0.0-0.6) 01/28/20 04:37 Absolute Basos (auto) 0.1 10^3/uL (0.0-0.2) 01/28/20 04:37 Seg Neutrophils % 56.2 % (42-78) 01/28/20 04:37 Carbonic Acid 1.35 mmol/L (1.05-1.35) 01/27/20 15:43 HCO3/H2CO3 Ratio 19:1 01/27/20 15:43 ABG pH 7.38 (7.35-7.45) 01/27/20 15:43 ABG pCO2 44.9 mmHg (35-45) 01/27/20 15:43 ABG pO2 72.2 mmHg (80-100) L 01/27/20 15:43 ABG HCO3 25.8 mmol/L (20-24) H 01/27/20 15:43 ABG Total CO2 27.2 mmol/L (21-25) H 01/27/20 15:43 ABG O2 Saturation 94.2 % (94-98) 01/27/20 15:43 ABG Base Excess 0.3 mmol/L 01/27/20 15:43 FiO2 3.5L 01/27/20 15:43 Sodium 136.4 mmol/L (137-145) L 01/28/20 04:37 Potassium 3.6 mmol/L (3.6-5.0) 01/28/20 04:37 Chloride 99 mmol/L (98-107) 01/28/20 04:37 Carbon Dioxide 27 mmol/L (22-30) 01/28/20 04:37 Anion Gap 10 (5-19) 01/28/20 04:37 BUN 8 mg/dL (7-20) 01/28/20 04:37 Creatinine 0.36 mg/dL (0.52-1.25) L 01/28/20 04:37 Est GFR ( Amer) > 60 (>60) 01/28/20 04:37 Est GFR (MDRD) Non-Af > 60 (>60) 01/28/20 04:37 Glucose 151 mg/dL (75-110) H 01/28/20 04:37 POC Glucose 222 mg/dL (70-110) H 01/28/20 11:53 Hemoglobin A1c % 13.7 % (4.7-6.0) H 01/27/20 04:15 Calcium 9.2 mg/dL (8.4-10.2) 01/28/20 04:37 Phosphorus 4.8 mg/dL (2.5-4.5) H 01/27/20 04:15 Magnesium 1.8 mg/dL (1.6-2.3) 01/27/20 04:15 Total Bilirubin 0.5 mg/dL (0.2-1.3) 01/26/20 12:58 Direct Bilirubin 0.2 mg/dL (0.0-0.4) 01/26/20 12:58 Neonat Total Bilirubin Not Reportable 01/26/20 12:58 Neonat Direct Bilirubin Not Reportable 01/26/20 12:58 Neonat Indirect Bili Not Reportable 01/26/20 12:58 AST 22 U/L (14-36) 01/26/20 12:58 ALT 19 U/L (<35) 01/26/20 12:58 Alkaline Phosphatase 164 U/L (38-126) H 01/26/20 12:58 Creatine Kinase 117 U/L (30-135) 01/26/20 12:58 CK-MB (CK-2) 2.12 ng/mL (<4.55) 01/26/20 12:58 Troponin I < 0.012 ng/mL 01/26/20 15:50 Total Protein 6.8 g/dL (6.3-8.2) 01/26/20 12:58 Albumin 3.9 g/dL (3.5-5.0) 01/26/20 12:58 TSH 0.43 uIU/mL (0.47-4.68) L 01/27/20 04:15 Urine Color YELLOW 01/26/20 14:52 Urine Appearance SLIGHTLY-CLOUDY 01/26/20 14:52 Urine pH 6.0 (5.0-9.0) 01/26/20 14:52 Ur Specific [place] 1.033 01/26/20 14:52 Urine Protein 30 mg/dL (NEGATIVE) H 01/26/20 14:52 Urine Glucose (UA) >=500 mg/dL (NEGATIVE) H 01/26/20 14:52 Urine Ketones NEGATIVE mg/dL (NEGATIVE) 01/26/20 14:52 Urine Blood MODERATE (NEGATIVE) H 01/26/20 14:52 Urine Nitrite NEGATIVE (NEGATIVE) 01/26/20 14:52 Urine Bilirubin NEGATIVE (NEGATIVE) 01/26/20 14:52 Urine Urobilinogen NEGATIVE mg/dL (<2.0) 01/26/20 14:52 Ur Leukocyte Esterase SMALL (NEGATIVE) H 01/26/20 14:52 Urine WBC (Auto) 8 /HPF 01/26/20 14:52 Urine RBC (Auto) 6 /HPF 01/26/20 14:52 Urine Bacteria (Auto) TRACE /HPF 01/26/20 14:52 Squamous Epi Cells Auto 3 /HPF 01/26/20 14:52 Urine Ascorbic Acid NEGATIVE (NEGATIVE) 01/26/20 14:52 Urine Opiates Screen UNCONFIRMED POSITIVE 01/26/20 14:52 Urine Methadone Screen NEGATIVE 01/26/20 14:52 Ur Barbiturates Screen NEGATIVE 01/26/20 14:52 Ur Phencyclidine Scrn NEGATIVE 01/26/20 14:52 Ur Amphetamines Screen NEGATIVE 01/26/20 14:52 U Benzodiazepines Scrn UNCONFIRMED POSITIVE 01/26/20 14:52 Urine Cocaine Screen NEGATIVE 01/26/20 14:52 U Marijuana (THC) Screen NEGATIVE 01/26/20 14:52 01/26/20 01/26/20 12:58 15:50 CK-MB (CK-2) 2.12 Troponin I < 0.012 < 0.012 Impressions: Chest X-Ray 01/26/20 12:51 IMPRESSION: No acute findings Chest CT 01/27/20 00:00 IMPRESSION: 1. Bilateral ground-glass opacities most marked in the lung bases. Overall aeration is significantly improved from prior study. 2. Small right upper and lower lobe pulmonary nodules as described. The right lower lobe pulmonary nodules stable from 2010 and needs no further workup. The 3.3 mm nodule in the periphery of the right upper lobe was probably present in 17 but less apparent due to the overlying airspace disease. Please see below for recommended follow-up. Plan Plan of Treatment: Follow-up with PCP Follow-up with pulmonology Follow-up with endocrinology Follow-up with cardiology to arrange outpatient stress test after completing steroid course Steroid taper Time Spent: Greater than 30 Minutes Stroke Is this a Stroke Patient?: No Acute Heart Failure Is this a Heart Failure Patient?: No
[2020-01-29] MEDS ORDERED: FENTANYL 25 MCG/HR PATCH.TD72 TOP SCH (10:00)
== END 2020-01-28 16:35 | disposition home or self-care (01) | DRG 190 ==
LOC: ER 12:44 → EH 19:30 → 4N 21:28 → 3W 01-27 22:20
PROVIDERS: ADMIT Internal Medicine; ATTEND Internal Medicine
DX: J44.1 Chronic obstructive pulmonary disease with (acute) exacerbation (principal); J96.22 Acute and chronic respiratory failure with hypercapnia; F11.20 Opioid dependence, uncomplicated; G89.4 Chronic pain syndrome; J20.9 Acute bronchitis, unspecified; J44.0 Chronic obstructive pulmonary disease with (acute) lower respiratory infection; M54.5 Low back pain; J84.89 Other specified interstitial pulmonary diseases; J84.112 Idiopathic pulmonary fibrosis; E11.65 Type 2 diabetes mellitus with hyperglycemia; Z66 Do not resuscitate; I25.10 Atherosclerotic heart disease of native coronary artery without angina pectoris; I10 Essential (primary) hypertension; B95.1 Streptococcus, group B, as the cause of diseases classified elsewhere; I25.2 Old myocardial infarction; Z79.4 Long term (current) use of insulin; Z87.891 Personal history of nicotine dependence; Z86.711 Personal history of pulmonary embolism; Z88.1 Allergy status to other antibiotic agents; Z88.3 Allergy status to other anti-infective agents; Z88.0 Allergy status to penicillin; Z99.81 Dependence on supplemental oxygen; Z82.61 Family history of arthritis; Z83.6 Family history of other diseases of the respiratory system; Z80.9 Family history of malignant neoplasm, unspecified
CPT/HCPCS: 36415; 36600; 71045; 71250; 80048; 80053; 80307; 81001; 82550; 82553; 82803; 82962; 83036; 83735; 84100; 84443; 84484; 85025; 87040; 87070; 87086; 87088; 87205; 93005; 93010; 94640; 96365; 96366; 96375; 96376; 99285; J0456; J1170; J1650; J1815; J1956; J2270; J2405; J3490; J7060; J7512; S0119